=== PATIENT | female | born 1940 | race Caucasian/White ===

== ENCOUNTER 2020-04-01 10:54 | Outpatient (CLI) | payer MEDICARE, SELFPAY ==
--- NOTE | ~2020-04-01 | US_ITS ---
EXAMINATION: US aorta DATE: 04/01/2020 12:09 INDICATION: Aortic dissection, hypertension, hypercholesterolemia and tobacco dependence. TECHNIQUE: Grayscale, color Doppler, and pulsed Doppler images of the aorta and common iliac arteries were obtained. COMPARISON: None. FINDINGS: The proximal aorta measures 2.4 cm in AP diameter. The mid aorta measures 2.1 cm. The mid to distal a mariajose measures 2.2 cm tapering to 1.6 cm at the distal aorta. The right common iliac artery measures 1 .2 cm. The left common iliac artery measures 1.3 cm. IMPRESSION: 1. Normal caliber abdominal aorta. Reviewed, dictated and finalized at location A.
== END 2020-04-01 10:55 | disposition home or self-care (01) ==
PROVIDERS: PCP Family Medicine; Visit Provider Physician Assistant
DX: E78.2 Mixed hyperlipidemia (principal); Z86.79 Personal history of other diseases of the circulatory system; F17.210 Nicotine dependence, cigarettes, uncomplicated; I10 Essential (primary) hypertension
CPT/HCPCS: 76775

== ENCOUNTER 2020-11-26 15:37 | Outpatient (CLI) | payer MEDICARE, SELFPAY ==
[2020-11-26 16:08] LABS: Basophils Percent Auto 0.5 % (0.2-1.2); Eosinophils Absolute Auto 0.1 K/mm3 (0-0.3); Eosinophils Percent Auto 1.5 % (0-4.4); Hematocrit 40.2 % (37.0-47.0); Hemoglobin 12.9 g/dL (12.0-15.0); Immature Granulocyte Absolute 0.11 K/mm3 (0.00-0.031); Immature Granulocyte Percent A 1.5 % (0-0.5); Lymphocytes Percent Auto 21.9 % (18.3-44.2); Mean Corpuscular HGB Conc 32.1 g/dl (32-36); Mean Corpuscular Hemoglobin 30.2 pg (26-34); Mean Corpuscular Volume 94.1 fl (80-100); Mean Platelet Volume 9.7 fl (7.4-10.4); Monocytes Absolute Auto 0.6 K/mm3 (0.1-0.6); Monocytes Percent Auto 8.1 % (2.6-8.5); Neutrophils Absolute Auto 4.9 K/mm3 (1.3-6.7); Neutrophils Percent Auto 66.5 % (45.5-73.1); Platelet Count Result 245 k/mm3 (150-375); Red Blood Count 4.27 M/mm3 (4.2-5.4); Red Cell Distribution Width 12.7 % (11.5-14.5); White Blood Count 7.3 K/mm3 (4.5-10.0)
[2020-11-26 16:24] LABS: Alanine Aminotransferase 14 U/L (4-35); Albumin Level 4.2 g/dL (3.5-5.1); Alkaline Phosphatase 118 U/L (38-126); Anion Gap 4 mmol/L (8-16); Aspartate Amino Transferase 20 U/L (14-36); Bilirubin,Total 0.4 mg/dL (0.2-1.3); Blood Urea Nitrogen 17 mg/dL (7-17); Calcium 8.9 mg/dL (8.4-10.2); Carbon Dioxide 32 mmol/L (22-30); Chloride 103 mmol/L (98-107); Cholesterol 179 mg/dL (0-200); Estimated Glomerular Filt Rate 48; Glucose 111 mg/dL (65-105); HDL Direct 43 mg/dL; Potassium 3.9 mmol/L (3.4-5.0); Sodium 139 mmol/L (137-145); Triglycerides 258 mg/dL (<150); Uric Acid 3.7 mg/dL (2.5-7.5)
[2020-11-26 16:35] LABS: LDL Cholesterol Direct 93 mg/dL
[2020-11-30 11:00] LABS: Vitamin D 1,25 (OH)2 Total 89 pg/mL (18-72); Vitamin D2 1,25 (OH)2 <8 pg/mL; Vitamin D3 1,25 (OH)2 89 pg/mL
== END 2020-11-26 15:38 | disposition home or self-care (01) ==
PROVIDERS: PCP Family Medicine; Visit Provider Physician Assistant
DX: M10.9 Gout, unspecified (principal); E55.9 Vitamin D deficiency, unspecified; F33.1 Major depressive disorder, recurrent, moderate; I10 Essential (primary) hypertension; E78.5 Hyperlipidemia, unspecified
CPT/HCPCS: 36415; 80053; 80061; 82652; 84443; 84550; 85025

== ENCOUNTER 2020-12-04 08:51 | Emergency (ER) | payer MEDICARE, SELFPAY ==
--- NOTE | ~2020-12-04 | XR_ITS ---
EXAMINATION: XR ribs RT 2V w CXR 2V DATE: 12/04/2020 09:16 INDICATION: Mid right rib pain post fall TECHNIQUE: PA and lateral views of the chest and 3 views of the right ribs were obtained. COMPARISON: Chest radiograph dated 02/15/2019 FINDINGS: Small calcified nodule projecting over the right costophrenic angle. Mild streaky atelectasis at the left costophrenic angle. No pulmonary edema, pleural effusion or pneumothorax. Heart size is normal. Tortuous thoracic aorta with suggestion of aneurysm at the arch and proximal descending aorta. Dual l ead pacemaker/AICD seen with leads projecting over the expected locations of the right atrium and rig ht ventricle. No rib fractures identified. Mild S-shaped curvature of the thoracic spine with mild to moderate spondylosis. Chronic mild anterior wedging of a few lower thoracic vertebral bodies. IMPRESSION: 1. No rib fracture or acute cardiopulmonary disease. 2. Tortuous and likely aneurysmal thoracic aorta. Reviewed, dictated and finalized at location B. STICKER
--- NOTE | 2020-12-04 09:01 | ED.FALL ---
HPI - Fall General Chief Complaint: Fall Stated Complaint: right side rib pain after fall Time Seen by Provider: 12/04/20 08:58 History of Present Illness HPI Narrative: Right rib/chest wall pain. Started last night after a fall. She was able to sleep, but when she tried to get up this morning the pain became severe. It is also exacerbated by coughing or breathing deeply. She did not hit her head. No neck or back pain. She believes that this was a mechanical fall due to darkness. Related Data Allergies Allergy/AdvReac Type Severity Reaction Status Date / Time prochlorperazine Allergy Mild shortness Verified 12/04/20 09:12 of breath propoxyphene Allergy Mild Fainting Verified 12/04/20 09:12 Sulfa (Sulfonamide Allergy Mild shortness Verified 12/04/20 09:12 Antibiotics) of breath Review of Systems Review of Systems: All systems reviewed & are unremarkable except as noted in HPI and below Constitutional: Constitutional: Denies fever(s) and Denies weakness Eyes: Eyes: Reports no additional eye complaints ENT: Reports system reviewed and no additional complaints, except as documented Cardiovascular: Cardiovascular: Reports no additional cardiovascular complaints Respiratory: Respiratory: Denies dyspnea Gastrointestinal: Gastrointestinal: Denies abdominal pain and Denies nausea Genitourinary: Genitourinary: Denies dysuria Musculoskeletal: Musculoskeletal: Denies back pain Neurologic: Denies dizziness and Denies weakness PMFSH Past Medical History Medical History (Updated 12/05/20 @ 00:00 by Background Daemon) Gout History of aortic dissection HTN (hypertension) Major depressive disorder, recurrent, moderate Memory deficit Mixed hyperlipidemia Tobacco dependence due to cigarettes Family History Family History Father Hypertension Family history of cardiovascular disease Social History Social History Social History: Divorce Smoking packs per day: 1 Smoking cigarettes per day: 20.0 Smoking status: Current every day smoker Tobacco type: cigarettes Second hand tobacco smoke exposure: Yes Alcohol intake: never Substance use: never Substance use type: does not use Gender identity (if verbalized by the patient): Female Exam Const: General: no acute distress and alert Nutritional Appearance: well nourished Orientation/consciousness: patient oriented x3 HENMT: Head: normal to inspection Eyes: Pupils: pupils not ERRL Neck: Neck: normal visual inspection Chest: Chest palpation & inspection: tenderness rib (lower right) Resp: Effort & Inspection: normal respiratory effort Auscultation: clear to auscultation bilaterally Cardio: Rate: regular rate Rhythm: regular rhythm GI: GI Palp: Yes Soft to palpation and No Tenderness to palpation present (GI) Skin: General skin exam: normal color Neuro: General: patient oriented x3, moves all extremities, no focal motor deficits and CN's II-XI intact bilaterally Speech: normal speech Extrem: General: normal to inspection Course Vital Signs Vital signs: Vital Signs Temperature 36.9 C 12/04/20 09:03 Pulse Rate 88 12/04/20 09:03 Respiratory Rate 18 12/04/20 09:03 Blood Pressure 154/120 H 12/04/20 09:03 Pulse Oximetry 100 12/04/20 09:03 Temperature 36.9 C 12/04/20 09:03 Pulse Rate 86 12/04/20 11:09 Respiratory Rate 18 12/04/20 11:09 Blood Pressure 150/90 H 12/04/20 11:09 Pulse Oximetry 100 12/04/20 11:09 MDM - Fall MDM Narrative Medical decision making narrative: No fracture. She is still having some pain, but moving well and not requesting any pain medication at this time. Differential Diagnosis Differential diagnosis: Likely other (rib fracture, chest wall strain) Medical Records Attestation: I reviewed the patient's medical records. Imaging Data Radiologis
[2020-12-04 09:03] VITALS: BP 154/120; PULSE 88; RESP 18; TEMP 36.9; O2SAT 100
[2020-12-04 11:07] VITALS: BP 150/90; PULSE 86; RESP 18; O2SAT 100
[2020-12-04 11:09] VITALS: BP 150/90; PULSE 86; RESP 18; O2SAT 100
== END 2020-12-04 12:10 | disposition home or self-care (01) ==
PROVIDERS: Emergency Provider Emergency Medicine; PCP Family Medicine
DX: S29.011A Strain of muscle and tendon of front wall of thorax, initial encounter (principal); M10.9 Gout, unspecified; I10 Essential (primary) hypertension; E78.2 Mixed hyperlipidemia; F17.210 Nicotine dependence, cigarettes, uncomplicated; Z95.810 Presence of automatic (implantable) cardiac defibrillator; W19.XXXA Unspecified fall, initial encounter
CPT/HCPCS: 71046; 71100; 99283

== ENCOUNTER 2021-10-06 17:35 | Emergency (ER) | payer MEDICARE, SELFPAY ==
--- NOTE | ~2021-10-06 | CT_ITS ---
EXAMINATION: CT brain wo con EXAM DATE: 10/06/2021 18:48 INDICATION: Head injury, headaches. TECHNIQUE: Spiral CT of the head was performed without contrast. Axial, coronal and sagittal images were reviewed. The dose-length product (DLP) for this examination was 605.33 mGy-cm. The exposure w as tailored according to patient size, and iterative reconstruction (ASIR) was used as additional dos e reduction technique. Comparison is made to prior examination from 02/05/2019. FINDINGS: There is dolichoectasia of the basilar artery and the left internal carotid artery distally . The left distal ICA has fusiform dilation up to 10 mm (was about and 2018). No focal aneurysm is specifically identified but this is a noncontrast study and a follow-up CTA brain should be considere d on nonemergent basis. There is old left thalamic lacunar infarction. There is no acute intraparenchymal hemorrhage. No oh dence of intraparenchymal brain mass lesion. No evidence of acute infarction. Please note that init ial head CT has limited sensitivity for small or acute infarctions. There is moderate periventricular and subcortical hypodensity, nonspecific but probably related to small vessel ischemic disease. Th ere is moderate prominence of the sulci and ventricles related to cerebral atrophy. There is intrac ranial carotid arteriosclerosis. There are no extra-axial collections. There is no mass effect or m idline shift. The orbits are unremarkable. Soft tissue is unremarkable. The visualized sinuses and mastoid air cells are well aerated. IMPRESSION: 1. No acute intracranial findings. 2. Fusiform dilation of the basilar and left distal ICA without focal aneurysm identified; follow-up nonemergent CTA brain should be considered. 3. 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 4. Microangiopathy and cerebral atrophy. Reviewed, dictated and finalized at location A. F LIBRARIAN BRANCH
[2021-10-06 17:50] VITALS: BP 187/130; PULSE 93; RESP 16; TEMP 37.1; O2SAT 98
[2021-10-06 18:17] VITALS: BP 184/118; PULSE 86; RESP 18; O2SAT 100
--- NOTE | 2021-10-06 18:25 | ECG_ITS ---
Measurements Intervals [place] Rate: 84 P: 207 AK: 186 QRS: -19 QRSD: 89 T: 25 QT: 414 QTc: 490 Interpretive Statements ELECTRONIC ATRIAL PACEMAKER SUPRAVENTRICULAR BIGEMINY CONSIDER INFERIOR INFARCT, AGE INDETERMINATE BORDERLINE ST-T WAVE ABNORMALITY- ANT/HIGH LAT LEADS BASELINE ARTIFACT- I, II, AVR, AVL, AVF, V1-V6 ABNORMAL ECG Electronically Signed On 10-06-2021 20:12:35 PRODUCTION COORDINATOR by Marko Orozco D.O.
--- NOTE | 2021-10-06 18:30 | ED.FALL ---
HPI - Fall General Chief Complaint: Fall Stated Complaint: FALL 2WKS AGO, PERSISTENT HEADACHE Time Seen by Provider: 10/06/21 18:17 Source: patient Mode of arrival: ambulatory Limitations: no limitations History of Present Illness HPI Narrative: This is an 81 year old female who presents for evaluation of intermittent headaches. Patient states 2 weeks ago she fell in the bathroom. She is unsure of why she fell. She states she did not seek treatment at this time. She has been having intermittent posterior headaches since her fall. She has been taking ibuprofen for her headache and it resolves her pain. She states her headache is currently resolved. She denies associated nausea, vomiting, fever, dizziness, or focal weakness. She has been found to be hypertensive and she reports history of high blood pressure. She is unsure if she takes medication for hypertension. Related Data Allergies Allergy/AdvReac Type Severity Reaction Status Date / Time prochlorperazine Allergy Mild shortness Verified 10/06/21 18:24 of breath propoxyphene Allergy Mild Fainting Verified 10/06/21 18:24 Sulfa (Sulfonamide Allergy Mild shortness Verified 10/06/21 18:24 Antibiotics) of breath Review of Systems Review of Systems: All systems reviewed & are unremarkable except as noted in HPI and below PMFSH Past Medical History Medical History Cognitive changes Gout History of aortic dissection HTN (hypertension) Major depressive disorder, recurrent, moderate Memory deficit Mixed hyperlipidemia Tobacco dependence due to cigarettes Family History Family History Father Hypertension Family history of cardiovascular disease Social History Social History (Updated 08/05/21 @ 10:38 by Liz Villela) Social History: Divorce Smoking packs per day: 1 Smoking cigarettes per day: 20.0 Smoking status: Current every day smoker Tobacco type: cigarettes Second hand tobacco smoke exposure: Yes Alcohol intake: never Substance use: never Substance use type: does not use Gender identity (if verbalized by the patient): Female Sexual Orientation (if Verbalized by the Patient): Straight or Heterosexual Exam Const: General: no acute distress and alert Nutritional Appearance: obese Orientation/consciousness: patient oriented x3 HENMT: Head: normocephalic and atraumatic Face and sinus: normal facial exam, sinuses nontender and face symmetric Mouth: Yes Normal oral and palatal mucosa present, Yes lip normal, Yes oropharynx normal and Yes moist mucous membranes Eyes: Pupils: Equal, round and reactive pupils present EOM: EOMs intact bilaterally Neck: Neck: normal visual inspection Chest: Chest palpation & inspection: normal inspection of the chest Resp: Effort & Inspection: normal respiratory effort and no retractions Auscultation: clear to auscultation bilaterally Cardio: Rate: regular rate Rhythm: regular rhythm Heart sounds: no murmurs GI: GI Palp: Yes Soft to palpation, No Tenderness to palpation present (GI) and No Guarding due to palpation present (GI) Auscultation: normal bowel sounds Skin: General skin exam: normal color Rashes: no rashes Neuro: General: patient oriented x3, moves all extremities, no meningeal signs, no focal motor deficits and CN's II-XI intact bilaterally Cranial nerves: Yes Nystagmus not present Speech: normal speech Extrem: General: normal to inspection Psych: Mental Status: mental status grossly normal Affect: normal affect Course Consultations Consultation #1: I Spoke with patient's PCPabout patient visit. She recommends clonidine 0.1 mg bid for hypertension and she will follow up with patient. PAtient does not have headache here and she has known aneurysm. She has not focal deficits. Date: 10/06/21 Time: 20:38 Vital Signs Vital signs: Vital Signs Tem
[2021-10-06 18:44] LABS: Basophils Percent Auto 0.6 % (0.2-1.2); Eosinophils Absolute Auto 0.1 K/mm3 (0-0.3); Eosinophils Percent Auto 1.7 % (0-4.4); Immature Granulocyte Absolute 0.08 K/mm3 (0.00-0.031); Immature Granulocyte Percent A 1.1 % (0-0.5); Lymphocytes Percent Auto 35.6 % (18.3-44.2); Mean Corpuscular HGB Conc 33.3 g/dl (32-36); Mean Corpuscular Hemoglobin 30.8 pg (26-34); Mean Corpuscular Volume 92.4 fl (80-100); Mean Platelet Volume 9.1 fl (7.4-10.4); Monocytes Absolute Auto 0.7 K/mm3 (0.1-0.6); Monocytes Percent Auto 10.4 % (2.6-8.5); Neutrophils Absolute Auto 3.6 K/mm3 (1.3-6.7); Neutrophils Percent Auto 50.6 % (45.5-73.1); Platelet Count Result 202 k/mm3 (150-375); Red Blood Count 4.22 M/mm3 (4.2-5.4); Red Cell Distribution Width 13.6 % (11.5-14.5)
[2021-10-06 18:50] VITALS: PULSE 80
[2021-10-06] MEDS: carvediloL 25 MG TABLET PO (18:50)
[2021-10-06 18:52] VITALS: BP 164/115; PULSE 83; RESP 18; O2SAT 99
[2021-10-06 18:53] LABS: INR 0.9; Prothrombin Time 11.8 Seconds (11.1-14.7)
[2021-10-06 18:54] LABS: Partial Thromboplastin Time 25.1 SECONDS (22.3-36.8)
[2021-10-06 19:01] LABS: Alanine Aminotransferase 18 U/L (4-35); Albumin Level 4.4 g/dL (3.5-5.1); Alkaline Phosphatase 102 U/L (38-126); Anion Gap 9 mmol/L (8-16); Aspartate Amino Transferase 25 U/L (14-36); Bilirubin,Total 0.4 mg/dL (0.2-1.3); Blood Urea Nitrogen 17 mg/dL (7-17); Calcium 9.1 mg/dL (8.4-10.2); Carbon Dioxide 24 mmol/L (22-30); Chloride 105 mmol/L (98-107); Estimated CRCL calculation 39 ml/min; Estimated Glomerular Filt Rate 53; Glucose 112 mg/dL (65-110); Potassium 3.6 mmol/L (3.4-5.0); Sodium 138 mmol/L (137-145)
[2021-10-06 19:20] VITALS: BP 158/96; PULSE 88; RESP 18; O2SAT 99
[2021-10-06 21:20] VITALS: BP 126/83; PULSE 77; RESP 20; O2SAT 100
--- NOTE | 2021-10-06 21:21 | PC.NURSE ---
Pt listed contact (Abhi) called and on their way to pick pt up at this time.
== END 2021-10-06 21:26 | disposition home or self-care (01) ==
PROVIDERS: Emergency Provider General Practice; PCP Family Medicine
DX: I10 Essential (primary) hypertension (principal); Z95.810 Presence of automatic (implantable) cardiac defibrillator; M10.9 Gout, unspecified; E78.2 Mixed hyperlipidemia; F17.210 Nicotine dependence, cigarettes, uncomplicated; G31.9 Degenerative disease of nervous system, unspecified; I73.9 Peripheral vascular disease, unspecified; R93.0 Abnormal findings on diagnostic imaging of skull and head, not elsewhere classified
CPT/HCPCS: 36415; 70450; 80053; 85025; 85610; 85730; 93005; 99284; A9270

== ENCOUNTER 2021-10-29 08:11 | Outpatient (CLI) | payer MEDICARE, SELFPAY ==
--- NOTE | ~2021-10-29 | XR_ITS ---
XR foot RT min 3V 10/29/2021 08:31 Indication: Right foot pain Procedure: 4 views right foot Comparison: No prior studies for comparison. Findings: There is a nondisplaced fracture proximal aspect of the fifth proximal phalanx with intra-a rticular extension. No other fracture or traumatic malalignment. Impression: 1: Nondisplaced fracture proximal aspect of the right fifth proximal phalanx with intra-articular ext ension. Reviewed, dictated and finalized at location B. ENGINE PERFORMANCE ENGINEER Impression: 1: Nondisplaced fracture proximal aspect of the right fifth proximal phalanx wi th intra-articular extension.
== END 2021-10-29 08:12 | disposition home or self-care (01) ==
PROVIDERS: PCP Family Medicine; Visit Provider Family Medicine
DX: S92.811A Other fracture of right foot, initial encounter for closed fracture (principal)
CPT/HCPCS: 73630

== ENCOUNTER 2022-05-20 16:49 | Inpatient (IN) | payer MEDICARE, MEDICAID, SELFPAY ==
[2022-05-20] VITALS (14 sets, daily range): BP systolic 76–133; BP diastolic 46–80; PULSE 72–100; RESP 14–20; TEMP 36.1–36.8; O2SAT 96–100; BMI 32.5
--- NOTE | ~2022-05-20 | CT_ITS ---
EXAMINATION: CT brain wo con DATE: 05/20/2022 17:41 INDICATION: Syncope. TECHNIQUE: Computed tomography (CT) of the head was performed without intravenous contrast. The mA wa s adjusted according to patient size. Iterative reconstruction technique was employed. The dose-lengt h product was 605.33 mGy-cm. COMPARISON: Head CT 10/06/2021 FINDINGS: There are old infarcts involving the thalami and left basal ganglia. There are scattered ar eas of low attenuation in the cerebral white matter. There is no intracranial hemorrhage, acute infar ction, or abnormal intracranial mass lesion. The ventricles are normal in size. There is a 12 mm aneu rysm of distal left internal carotid artery. 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 The re are changes of left-sided craniotomy. The mastoid air cells are normal. There is mild mucosal thic kening in the ethmoid sinuses. The orbits are normal. IMPRESSION: 1. Old infarcts involving the thalami and left basal ganglia. 2. Mild nonspecific cerebral white matter disease, which likely represents chronic small vessel ische toni disease. 3. Aneurysms involving the basilar artery and distal left internal carotid artery. Head CTA is recomm ended. Reviewed, dictated and finalized at location A. IMPRESSION: 1. Old infarcts involving the thalami and left basal ganglia. 2. Mild nonspecific cerebral white matter disease, which likely represents hotel or motel receptionist armando small vessel ischemic disease. 3. Aneurysms involving the basilar artery and distal left internal carotid ranjith ry. Head CTA is recommended.
--- NOTE | ~2022-05-20 | XR_ITS ---
EXAMINATION: XR chest 2V DATE: 05/20/2022 17:35 INDICATION: Lightheadedness. TECHNIQUE: Frontal and lateral views of the chest were obtained. COMPARISON: Chest 2 views 12/04/2020 FINDINGS: There is mild atelectasis in the lower lung zones. No pleural effusion or pneumothorax. Car diomegaly is noted. There is a left chest pacer/defibrillator with leads in right atrium and right ve ntricle. IMPRESSION: 1. Mild atelectasis in the lower lung zones. 2. Cardiomegaly. Reviewed, dictated and finalized at location A.
--- NOTE | 2022-05-20 16:56 | ECG_ITS ---
Measurements Intervals [place] Rate: 75 P: 181 AK: 217 QRS: -11 QRSD: 100 T: 66 QT: 378 QTc: 424 Interpretive Statements PROBABLE ELECTRONIC ATRIAL PACEMAKER NONSPECIFIC ST & T-WAVE ABNORMALITY ABNORMAL RHYTHM ECG COMPARED TO ECG 10/06/2021 18:56:39 NO SIGNIFICANT CHANGE Electronically Signed On 05-21-2022 19:47:38 CDT by Mariah Shaw M.D.
--- NOTE | 2022-05-20 17:11 | ED.GENADULT ---
HPI - General Adult General Chief complaint: Weakness <PUSHPA Shelton Last Filed: 05/21/22 02:12> Stated complaint: dizziness <PUSHPA Shelton Last Filed: 05/21/22 02:12> Time Seen by Provider: 05/20/22 16:59 <Kandy Morrell PA-C - Last Filed: 05/21/22 02:12> History of Present Illness HPI narrative: Patient is an 82-year-old female with a history of hypertension, hyperlipidemia, CVA with residual cognitive deficits, sinus pause s/p pacemaker placement, type B aortic dissection medically treated at [facility], COPD, current smoker, here for evaluation of lightheadedness today. Patient states that she has felt lightheaded all day, and whenever she goes from seated to standing, she passes out. Had 3 episodes total today. She denies any head injury or loss of consciousness but is somewhat of an unreliable historian. She has been able to get herself off the floor after falling and denies significant arthralgia after the falls. Notes that she hasn't been eating much or drinking much over past several days. Denies fevers, chills, abdominal pain, chest pain, shortness of breath, blood in her stool, headaches or visual changes. Patient did not take her medications today including her blood pressure medicines. <PUSHPA Shelton Last Filed: 05/21/22 02:12> Related Data Home medications: Home Medications Medication Instructions Recorded Confirmed allopurinol 100 mg tablet 100 mg PO DAILY 05/20/22 05/20/22 paroxetine HCl 20 mg tablet 20 mg PO DAILY 05/20/22 05/20/22 topiramate 50 mg tablet 50 mg PO BID 05/20/22 05/20/22 <PUSHPA Shelton Last Filed: 05/21/22 02:12> Allergies/adverse reactions: Allergies Allergy/AdvReac Type Severity Reaction Status Date / Time prochlorperazine Allergy Mild shortness Verified 05/20/22 20:54 of breath propoxyphene Allergy Mild Fainting Verified 05/20/22 20:54 Sulfa (Sulfonamide Allergy Mild shortness Verified 05/20/22 20:54 Antibiotics) of breath <Kandy Morrell PA-C - Last Filed: 05/21/22 02:12> Review of Systems Review of Systems: Gen: Reports lightheadedness and syncope. Denies fevers or chills Eyes: Denies eye pain or visual change ENT: Denies congestion Respiratory: Denies shortness of breath or cough CV: Denies chest pain or palpitations GI: Reports abdominal pain nausea, emesis or diarrhea denies burning, urgency, frequency or hematuria Musculoskeletal: Denies back pain or muscle pain Neuro: Denies numbness, tingling, weakness or focal weakness Skin: Denies rash 10 point review of systems negative, other than as per history of present illness, past medical history and other positives and review of systems <Kandy Morrell PA-C - Last Filed: 05/21/22 02:12> [facility] Past Medical History Medical History: Medical History (Updated 05/20/22 @ 20:45 by Jo Ann Briggs DO) Acute kidney injury superimposed on chronic kidney disease B12 deficiency Cardiac pacemaker Cerebral aneurysm Is with leakage in 1994 that was repaired with 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
[2022-05-20 17:18] LABS: Basophils Percent Auto 0.5 % (0.2-1.2); Eosinophils Absolute Auto 0.1 K/mm3 (0-0.3); Eosinophils Percent Auto 0.7 % (0-4.4); Hematocrit 38.2 % (37.0-47.0); Hemoglobin 12.4 g/dL (12.0-15.0); Immature Granulocyte Absolute 0.09 K/mm3 (0.00-0.031); Lymphocytes Absolute Auto 2.18 K/mm3 (0.9-3.2); Lymphocytes Percent Auto 24.9 % (18.3-44.2); Mean Corpuscular HGB Conc 32.5 g/dl (32-36); Mean Corpuscular Hemoglobin 29.9 pg (26-34); Mean Platelet Volume 9.5 fl (7.4-10.4); Monocytes Absolute Auto 0.8 K/mm3 (0.1-0.6); Neutrophils Absolute Auto 5.6 K/mm3 (1.3-6.7); Neutrophils Percent Auto 63.9 % (45.5-73.1); Platelet Count Result 226 k/mm3 (150-375); Red Blood Count 4.15 M/mm3 (4.2-5.4); Red Cell Distribution Width 13.2 % (11.5-14.5); White Blood Count 8.8 K/mm3 (4.5-10.0)
[2022-05-20 17:28] LABS: Alanine Aminotransferase 12 U/L (6-35); Albumin Level 4.2 g/dL (3.5-5.1); Alkaline Phosphatase 78 U/L (38-126); Anion Gap 12 mmol/L (8-16); Aspartate Amino Transferase 19 U/L (14-36); Bilirubin,Total 0.5 mg/dL (0.2-1.3); Blood Urea Nitrogen 37 mg/dL (7-17); Calcium 9.1 mg/dL (8.4-10.2); Carbon Dioxide 26 mmol/L (22-30); Chloride 98 mmol/L (98-107); Estimated CRCL calculation 15 ml/min; Estimated Glomerular Filt Rate 17; Glucose 106 mg/dL (65-110); Potassium 3.5 mmol/L (3.4-5.0); Sodium 136 mmol/L (137-145)
[2022-05-20 17:30] LABS: Appearance Urine Slightly Cloudy (Clear); Bilirubin Urine 1+ (Negative); Blood Urine Negative (Negative); Glucose Urine UA Negative (Negative); Ketones Urine 1+ mg/dL (Negative); Leukocyte Esterase Ur 1+ LEU/UL (Negative); Nitrate Urine Negative (Negative); Protein Urine 1+ mg/dL (Negative); Specific Grav Ur 1.025 (1.001-1.035)
[2022-05-20 17:33] LABS: Add Urine Microscopic? YES; Color Urine Dark Yellow (Yellow)
[2022-05-20] MEDS: SODIUM CHLORIDE 0.9% IV 1,000 ML 999 ML IV CONT ×2 (17:35→22:07)
[2022-05-20 17:36] LABS: Amorphous Sediment Urine Few; Bacteria Urine Trace /hpf; RBC Urine 21-50 /hpf (0-2); Squamous Epithelial Cell Urine Few /hpf (Few); WBC Urine >75 /hpf
[2022-05-20 17:59] LABS: Lactic Acid Reflex 1.6 mmol/L (0.7-2.0)
--- NOTE | 2022-05-20 19:20 | PC.NURSE ---
Report received from VAZQUEZ Mirza. Assumed care of patient at this time.
--- NOTE | 2022-05-20 20:29 | PM.IMHP ---
H&P: HPI History of Present Illness Date/Time: 05/20/22 20:29 Chief Complaint: Lightheaded Narrative: 82-year-old female with a past medical history of CVA, intracranial aneurysm, cardiac pacemaker, COPD, hypertension, chronic kidney disease stage 3 and gout who presented to the ER via private vehicle with lightheadedness. The patient reported she had fallen multiple times today. When she arrived his triage patient blood pressure was in the 76/46. Patient received 1 L of IV fluid hydration with repeat blood pressures in the 90s to 100's systolic. Patient was also noted to have acute on chronic kidney injury. The patient had reported to the ER doctor multiple times that she was lightheaded. At the time my evaluation the patient denied actually feeling lightheaded. She reports that simply her legs were not working like they should. She had 3 episodes of falling today. She denies any head injury or loss of consciousness but is a poor historian. She was able to get herself up off the floor after falling. She reports that she has had decreased mobility since falling off of a bed at her friend's house earlier in the month. She denies any assistive devices with ambulation. She has not been eating or drinking much over last several days. She denies any change in appetite, nausea, vomiting, abdominal pain, chest pain or shortness of breath. She does still smoke half a pack to 1 pack of cigarettes per day. She did not take any of her medications today. It is difficult to tell which medications she has been taking. She had a paper with her that stated that her Coreg had been discontinued. However the patient remains on clonidine 3 times a day hydrochlorothiazide and losartan. The patient is alert and oriented to the fact that she is in the hospital and knows that the month of May. She thought the year was 2020. The patient had difficulty naming the president. When I provided her with his 1st name she was eventually able to give me his last name. She states that she lives alone. She reports that she came in to the ER because her son tried to come visit her today and she fell when she tried to answer the door. He convinced her to come to the ER. She reports significantly decreased vision due to cataracts. She is scared to have cataract surgery. Review of Systems Review of Systems: 12 systems were reviewed with pertinent positives and negatives per HPI. Except as documented in the HPI, all other systems were reviewed and are negative. 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 syndrome) Thoracic aortic aneurysm (TAA) Tobacco dependence due to cigarettes Vascular dementia without behavioral disturbance Vitamin D deficiency Surgical History Surgical History (Updated 05/20/22 @ 20:44 by Jo Ann Briggs DO) History of brain surgery (~1994) Aneurysm repair History of total hysterectomy with bilateral salpingo-oophorectomy (BSO) Family History Family History Father Hypertension Family history of cardiovascular disease Mother Heart disease Sibling Drug abuse Alcohol abuse Son Schizophrenia Social History Social History (Upd
--- NOTE | 2022-05-20 20:35 | ADMGEN ---
This patient, Daylin Chery, was admitted to Medical Room 340-01. Patient/family oriented to hospital policies and general routines including ID bracelet, bed and alarms, visiting hours, pain management, procedures, bathroom and other care routines, personal items, smoking policy, room service/diet, and visiting hours. Information on how to activate the Rapid Response Team has been discussed. Patient/Family are encouraged to report perceived risks to care and to ask questions if they do not understand what they are told or what they should do.
[2022-05-20] MEDS: SODIUM CHLORIDE 0.9% IV 1,000 ML 100 ML IV CONT (22:07)
[2022-05-21] VITALS (10 sets, daily range): BP systolic 123–150; BP diastolic 65–89; PULSE 65–84; RESP 18; TEMP 36.4–36.8; O2SAT 95–98
[2022-05-21] MEDS: lamoTRIgine 100 MG TABLET 50 MG PO (00:27)
[2022-05-21] MEDS: TOPIRAMATE 25 MG TABLET 50 MG PO ×3 (00:28→16:36)
[2022-05-21] MEDS: MEMANTINE 10 MG TABLET PO ×3 (00:28→16:35)
[2022-05-21] MEDS: QUEtiapine FUMARATE 25 MG TABLET PO ×2 (00:28→19:56)
[2022-05-21] MEDS: SODIUM CHLORIDE 0.9% IV 1,000 ML 100 ML IV CONT ×2 (07:01→17:21)
[2022-05-21] MEDS: UMECLIDINIUM/VILANTEROL 62.5-25 MCG ELLIPTA 1 PUFF INHALATION (08:08)
[2022-05-21] MEDS: ENOXAPARIN 30 MG/0.3 ML SYRINGE SUB-Q (08:16)
[2022-05-21] MEDS: allopurinoL 100 MG TABLET PO (08:17)
[2022-05-21] MEDS: ATORVASTATIN 10 MG TABLET PO (08:17)
[2022-05-21] MEDS: PARoxetine 20 MG TABLET PO (08:18)
[2022-05-21 10:35] LABS: Hematocrit 31.6 % (37.0-47.0); Hemoglobin 10.2 g/dL (12.0-15.0); Mean Corpuscular HGB Conc 32.3 g/dl (32-36); Mean Corpuscular Hemoglobin 30.1 pg (26-34); Mean Corpuscular Volume 93.2 fl (80-100); Mean Platelet Volume 9.5 fl (7.4-10.4); Platelet Count Result 182 k/mm3 (150-375); Red Blood Count 3.39 M/mm3 (4.2-5.4); Red Cell Distribution Width 13.2 % (11.5-14.5); White Blood Count 6.4 K/mm3 (4.5-10.0)
[2022-05-21 10:58] LABS: Albumin Level 3.4 g/dL (3.5-5.1); Anion Gap 10 mmol/L (8-16); Blood Urea Nitrogen 26 mg/dL (7-17); Carbon Dioxide 24 mmol/L (22-30); Chloride 106 mmol/L (98-107); Estimated CRCL calculation 27 ml/min; Estimated Glomerular Filt Rate 33; Glucose 127 mg/dL (65-110); Phosphorus 3.4 mg/dL (2.5-4.5); Sodium 140 mmol/L (137-145)
--- NOTE | 2022-05-21 12:38 | PM.IMPN ---
Progress Note: A&P Assessment and Plan (1) Acute renal failure superimposed on stage 3 chronic kidney disease: Code(s): N17.9 - Acute kidney failure, unspecified; N18.30 - Chronic kidney disease, stage 3 unspecified Status: Acute Assessment and Plan: Most likely due to hypovolemia and hypotension. Patient's blood pressure improved with 1 L normal saline bolus in the ER. An additional 500 mL bolus was given on arrival to the medical floor. Will continue the patient on maintenance IV fluids after that time. Will repeat BMP in a.m.. Antihypertensives on hold including hydrochlorothiazide and losartan. I suspect the patient is not taking her medications appropriately due to her dementia. She would benefit from simple of vacation of her medication regimen. Id eliminating clonidine for antihypertensive purposes. 05/21/2022 interval history: patient is poor historian, may have dementia, patient with syncopal episodes 2/2 dehydration due to poor PO intake resulting in EKATERINA upon arrival BUN/creatinine was 37/2.7 which has improved with IVF and now BUN/Creatinine is 26/1.5 will continue to hydrate patient and encourage PO intake, will have PT/OT worked with patient and patient will benefit going to SNF for rehab, will CPM, will monitor. (2) Hypotension due to hypovolemia: Code(s): I95.89 - Other hypotension; E86.1 - Hypovolemia Status: Acute Assessment and Plan: Improved after 1 L normal saline bolus provided in ER. Will give an additional 500 mL bolus at the patient actually has has evidence of orthostatic hypotension on re-evaluation. Will hold the patient's multiple antihypertensives. Plan Patient has been admitted as observation status. Subjective Date/time seen: 05/21/22 12:38 [id number]old female with a past medical history of CVA, intracranial aneurysm, cardiac pacemaker, COPD, hypertension, chronic kidney disease stage 3 and gout who presented to the ER via private vehicle with lightheadedness.? The patient reported she had fallen multiple times today.? When she arrived his triage patient blood pressure was in the 76/46.? Patient received 1 L of IV fluid hydration with repeat blood pressures in the 90s to 100's systolic.? Patient was also noted to have acute on chronic kidney injury.? The patient had reported to the ER doctor multiple times that she was lightheaded.? At the time my evaluation the patient denied actually feeling lightheaded.? She reports that simply her legs were not working like they should.? She had 3 episodes of falling today.? She denies any head injury or loss of consciousness but is a poor historian.? She was able to get herself up off the floor after falling.? She reports that she has had decreased mobility since falling off of a bed at her friend's house earlier in the month.? She denies any assistive devices with ambulation.? She has not been eating or drinking much over last several days.? She denies any change in appetite, nausea, vomiting, abdominal pain, chest pain or shortness of breath.? She does still smoke half a pack to 1 pack of cigarettes per day.? She did not take any of her medications today.? It is difficult to tell which medications she has been taking.? She had a paper with her that stated that her Coreg had been discontinued.? However the patient remains on clonidine 3 times a day hydrochlorothiazide and losartan.? The patient is alert and oriented to the fact that she is in the hospital and knows that the month of May.? She thought the year was 2020.? The patient had difficulty naming the president.? When I provided her with his 1st name she was eventually able to give me his last name.? She states that she lives alone.? She reports that she came in to the ER because her son tried to come visit her today and she fell when she tried to answer the door.? He convinced her to come to the ER.? She reports significantly decreased vision due to cataracts.? She is scared
--- NOTE | 2022-05-21 14:42 | PC.NURSE ---
Wrap Checker called pharmacy and spoke with Dana to clarify label on lamotrigine that reads give with 50 mg for total dose of 150 mg . At 0800 there was only one active order with instructions to give 0.5 tablet for total a dose 50 mg. She clarified that the total dose is to be 150mg and the order was entered incorrectly. The order has been corrected and will administered at 1700.
[2022-05-21] MEDS: lamoTRIgine 100 MG TABLET PO (16:35)
[2022-05-21] MEDS: lamoTRIgine 50 MG TABLET PO (16:35)
[2022-05-22] VITALS (10 sets, daily range): BP systolic 143–158; BP diastolic 86–93; PULSE 71–89; RESP 14–18; TEMP 36.6–37.2; O2SAT 94–97
[2022-05-22] MEDS: SODIUM CHLORIDE 0.9% IV 1,000 ML 100 ML IV CONT (03:33)
[2022-05-22] MEDS: UMECLIDINIUM/VILANTEROL 62.5-25 MCG ELLIPTA 1 PUFF INHALATION (07:36)
[2022-05-22] MEDS: ATORVASTATIN 10 MG TABLET PO (08:35)
[2022-05-22] MEDS: allopurinoL 100 MG TABLET PO (08:35)
[2022-05-22] MEDS: TOPIRAMATE 25 MG TABLET 50 MG PO ×2 (08:36→17:01)
[2022-05-22] MEDS: lamoTRIgine 50 MG TABLET PO ×2 (08:36→17:01)
[2022-05-22] MEDS: PARoxetine 20 MG TABLET PO (08:36)
[2022-05-22] MEDS: lamoTRIgine 100 MG TABLET PO ×2 (08:36→17:01)
[2022-05-22] MEDS: ENOXAPARIN 30 MG/0.3 ML SYRINGE SUB-Q (08:37)
[2022-05-22] MEDS: MEMANTINE 10 MG TABLET PO ×2 (08:37→17:01)
[2022-05-22 08:52] LABS: Hematocrit 33.3 % (37.0-47.0); Mean Corpuscular Hemoglobin 30.3 pg (26-34); Mean Corpuscular Volume 91.7 fl (80-100); Mean Platelet Volume 9.3 fl (7.4-10.4); Platelet Count Result 166 k/mm3 (150-375); Red Blood Count 3.63 M/mm3 (4.2-5.4); Red Cell Distribution Width 13.2 % (11.5-14.5); White Blood Count 7.8 K/mm3 (4.5-10.0)
[2022-05-22 09:02] LABS: Anion Gap 10 mmol/L (8-16); Blood Urea Nitrogen 16 mg/dL (7-17); Calcium 8.3 mg/dL (8.4-10.2); Carbon Dioxide 26 mmol/L (22-30); Chloride 104 mmol/L (98-107); Estimated CRCL calculation 36 ml/min; Estimated Glomerular Filt Rate 48; Glucose 102 mg/dL (65-110); Potassium 3.2 mmol/L (3.4-5.0); Sodium 140 mmol/L (137-145)
[2022-05-22] MEDS: POTASSIUM CHLORIDE 20 MEQ TABLET 40 MEQ PO (10:59)
--- NOTE | 2022-05-22 13:19 | PM.IMPN ---
Progress Note: A&P Assessment and Plan (1) Acute renal failure superimposed on stage 3 chronic kidney disease: Code(s): N17.9 - Acute kidney failure, unspecified; N18.30 - Chronic kidney disease, stage 3 unspecified Status: Acute Assessment and Plan: Most likely due to hypovolemia and hypotension. Patient's blood pressure improved with 1 L normal saline bolus in the ER. An additional 500 mL bolus was given on arrival to the medical floor. Will continue the patient on maintenance IV fluids after that time. Will repeat BMP in a.m.. Antihypertensives on hold including hydrochlorothiazide and losartan. I suspect the patient is not taking her medications appropriately due to her dementia. She would benefit from simple of vacation of her medication regimen. Id eliminating clonidine for antihypertensive purposes. 05/21/2022 interval history: patient is poor historian, may have dementia, patient with syncopal episodes 2/2 dehydration due to poor PO intake resulting in EKATERINA upon arrival BUN/creatinine was 37/2.7 which has improved with IVF and now BUN/Creatinine is 26/1.5 will continue to hydrate patient and encourage PO intake, will have PT/OT worked with patient and patient will benefit going to SNF for rehab, will CPM, will monitor. 05/22/2022 interval history: patient is poor historian, may have dementia, patient with syncopal episodes 2/2 dehydration due to poor PO intake resulting in EKATERINA upon arrival BUN/creatinine was 37/2.7 which has improved with IVF and now BUN/Creatinine today is 16/1.1 will stop IVF as patient stats she is going bathroom too many and her symptoms have improved and not as dizzy, will encourage PO intake, will have PT/OT worked with patient and patient will benefit going to SNF for rehab, will CPM, will monitor. (2) Hypotension due to hypovolemia: Code(s): I95.89 - Other hypotension; E86.1 - Hypovolemia Status: Acute Assessment and Plan: Improved after 1 L normal saline bolus provided in ER. Will give an additional 500 mL bolus at the patient actually has has evidence of orthostatic hypotension on re-evaluation. Will hold the patient's multiple antihypertensives. Plan Patient has been admitted as observation status. Subjective Date/time seen: 05/22/22 13:19 05/22/2022 interval history: patient is poor historian, may have dementia, patient with syncopal episodes 2/2 dehydration due to poor PO intake resulting in EKATERINA upon arrival BUN/creatinine was 37/2.7 which has improved with IVF and now BUN/Creatinine today is 16/1.1 will stop IVF as patient stats she is going bathroom too many and her symptoms have improved and not as dizzy, will encourage PO intake, will have PT/OT worked with patient and patient will benefit going to SNF for rehab, will CPM, will monitor. Exam Narrative: elderly frail Patient is comfortable, NAD HEENT: eyes are clear and none icteric LUNGS: normal respiratory effort ABD: distended Lower extremities: no edema SKIN: nonjaundiced Neuro: grossly intact. Objective Data Vital Signs Vital Signs: Vital Signs - 24 hr 05/21/22 13:45 05/21/22 16:00 05/21/22 20:00 Temperature 98.2 F Pulse Rate 72 75 84 Respiratory Rate 18 Blood Pressure 123/80 Pulse Oximetry 98 Oxygen Delivery 05/21/22 21:36 05/22/22 00:00 05/22/22 04:00 Temperature 97.6 F Pulse Rate 73 71 73 Respiratory Rate 18 Blood Pressure 150/89 H Pulse Oximetry 96 Oxygen Delivery 05/22/22 05:25 05/22/22 07:37 05/22/22 08:36 Temperature 97.9 F Pulse Rate 76 72 Respiratory Rate 18 Blood Pressure 158/86 H Pulse Oximetry 97 94 Oxygen Delivery Room Air 05/22/22 12:00 05/22/22 13:09 Temperature Pulse Rate 89 Respiratory Rate Blood Pressure Pulse Oximetry Oxygen Delivery Room Air Intake/Output Intake/Output: Intake & Output 05/19/22 05/20/22 05/21/22 05/22/22 23:59 23:59 23:59 23:59 Intake Total 1000
[2022-05-22] MEDS: QUEtiapine FUMARATE 25 MG TABLET PO (20:48)
[2022-05-23] VITALS (16 sets, daily range): BP systolic 139–151; BP diastolic 76–89; PULSE 75–91; RESP 12–18; TEMP 36.7–37.4; O2SAT 93–97
[2022-05-23] MEDS: ALBUTEROL SULFATE NEB 2.5 MG/3 ML INH 5 MG INHALATION ×4 (03:10→20:34)
[2022-05-23] MEDS: IPRATROPIUM BR 0.02% INH SOLN 0.5 MG/2.5 ML VIAL INHALATION ×4 (03:14→20:34)
[2022-05-23 07:10] LABS: Hemoglobin 12.1 g/dL (12.0-15.0); Mean Corpuscular HGB Conc 32.7 g/dl (32-36); Mean Corpuscular Hemoglobin 29.5 pg (26-34); Mean Corpuscular Volume 90.2 fl (80-100); Mean Platelet Volume 9.6 fl (7.4-10.4); Platelet Count Result 196 k/mm3 (150-375); White Blood Count 12.2 K/mm3 (4.5-10.0)
[2022-05-23 07:44] LABS: Anion Gap 10 mmol/L (8-16); Blood Urea Nitrogen 13 mg/dL (7-17); Calcium 8.8 mg/dL (8.4-10.2); Carbon Dioxide 25 mmol/L (22-30); Chloride 101 mmol/L (98-107); Estimated CRCL calculation 34 ml/min; Estimated Glomerular Filt Rate 43; Glucose 117 mg/dL (65-110); Potassium 3.5 mmol/L (3.4-5.0); Sodium 136 mmol/L (137-145)
[2022-05-23] MEDS: ENOXAPARIN 30 MG/0.3 ML SYRINGE SUB-Q (08:35)
[2022-05-23] MEDS: lamoTRIgine 50 MG TABLET PO ×2 (08:35→16:18)
[2022-05-23] MEDS: allopurinoL 100 MG TABLET PO (08:35)
[2022-05-23] MEDS: ATORVASTATIN 10 MG TABLET PO (08:35)
[2022-05-23] MEDS: TOPIRAMATE 25 MG TABLET 50 MG PO ×2 (08:35→16:18)
[2022-05-23] MEDS: lamoTRIgine 100 MG TABLET PO ×2 (08:35→16:18)
[2022-05-23] MEDS: MEMANTINE 10 MG TABLET PO ×2 (08:35→16:18)
[2022-05-23] MEDS: PARoxetine 20 MG TABLET PO (08:35)
--- NOTE | 2022-05-23 16:06 | PM.IMPN ---
Progress Note: A&P Assessment and Plan (1) Acute renal failure superimposed on stage 3 chronic kidney disease: Code(s): N17.9 - Acute kidney failure, unspecified; N18.30 - Chronic kidney disease, stage 3 unspecified Status: Acute Assessment and Plan: Most likely due to hypovolemia and hypotension. Patient's blood pressure improved with 1 L normal saline bolus in the ER. An additional 500 mL bolus was given on arrival to the medical floor. Will continue the patient on maintenance IV fluids after that time. Will repeat BMP in a.m.. Antihypertensives on hold including hydrochlorothiazide and losartan. I suspect the patient is not taking her medications appropriately due to her dementia. She would benefit from simple of vacation of her medication regimen. Id eliminating clonidine for antihypertensive purposes. 05/21/2022 interval history: patient is poor historian, may have dementia, patient with syncopal episodes 2/2 dehydration due to poor PO intake resulting in EKATERINA upon arrival BUN/creatinine was 37/2.7 which has improved with IVF and now BUN/Creatinine is 26/1.5 will continue to hydrate patient and encourage PO intake, will have PT/OT worked with patient and patient will benefit going to SNF for rehab, will CPM, will monitor. 05/22/2022 interval history: patient is poor historian, may have dementia, patient with syncopal episodes 2/2 dehydration due to poor PO intake resulting in EKATERINA upon arrival BUN/creatinine was 37/2.7 which has improved with IVF and now BUN/Creatinine today is 16/1.1 will stop IVF as patient stats she is going bathroom too many and her symptoms have improved and not as dizzy, will encourage PO intake, will have PT/OT worked with patient and patient will benefit going to SNF for rehab, will CPM, will monitor. 05/23/2022 interval history: patient is poor historian, may have dementia, patient with syncopal episodes 2/2 dehydration due to poor PO intake resulting in EKATERINA upon arrival BUN/creatinine was 37/2.7 which has improved with IVF and on 05/22 BUN/Creatinine trended down to 16/1.1 stopped IVF as patient stats she is going bathroom too many times and her symptoms have improved and not as dizzy, will encourage PO intake, today patient feels short of breath may possibly volume overloaded due to over hydration, will give lasix 20mg IV x1, will have PT/OT worked with patient and patient will benefit going to SNF for rehab, will CPM, will monitor. (2) Hypotension due to hypovolemia: Code(s): I95.89 - Other hypotension; E86.1 - Hypovolemia Status: Acute Assessment and Plan: Improved after 1 L normal saline bolus provided in ER. Will give an additional 500 mL bolus at the patient actually has has evidence of orthostatic hypotension on re-evaluation. Will hold the patient's multiple antihypertensives. Plan Patient has been admitted as observation status. Subjective Date/time seen: 05/23/22 16:06 05/23/2022 interval history: patient is poor historian, may have dementia, patient with syncopal episodes 2/2 dehydration due to poor PO intake resulting in EKATERINA upon arrival BUN/creatinine was 37/2.7 which has improved with IVF and on 05/22 BUN/Creatinine trended down to 16/1.1 stopped IVF as patient stats she is going bathroom too many times and her symptoms have improved and not as dizzy, will encourage PO intake, today patient feels short of breath may possibly volume overloaded due to over hydration, will give lasix 20mg IV x1, will have PT/OT worked with patient and patient will benefit going to SNF for rehab, will CPM, will monitor. Exam Narrative: elderly frail Patient is comfortable, NAD HEENT: eyes are clear and none icteric LUNGS: normal respiratory effort ABD: distended Lower extremities: no edema SKIN: nonjaundiced Neuro: grossly intact. Objective Data Vital Signs Vital Signs: Vital Signs - 24 hr 05/22/22 20:09 05/22/22 20:00 05/23/22 00:00 Temperat
[2022-05-23] MEDS: FUROSEMIDE INJ 40 MG/4 ML VIAL 20 MG IV PUSH (16:19)
[2022-05-23] MEDS: QUEtiapine FUMARATE 25 MG TABLET PO (20:52)
[2022-05-24] VITALS (12 sets, daily range): BP systolic 128–144; BP diastolic 71–86; PULSE 72–91; RESP 14–16; TEMP 36.5–37.2; O2SAT 95–96
[2022-05-24 05:54] LABS: Hematocrit 35.7 % (37.0-47.0); Hemoglobin 11.8 g/dL (12.0-15.0); Mean Corpuscular HGB Conc 33.1 g/dl (32-36); Mean Corpuscular Hemoglobin 30.3 pg (26-34); Mean Corpuscular Volume 91.5 fl (80-100); Platelet Count Result 184 k/mm3 (150-375); White Blood Count 11.9 K/mm3 (4.5-10.0)
[2022-05-24 06:05] LABS: Anion Gap 10 mmol/L (8-16); Blood Urea Nitrogen 17 mg/dL (7-17); Carbon Dioxide 24 mmol/L (22-30); Chloride 98 mmol/L (98-107); Estimated CRCL calculation 34 ml/min; Estimated Glomerular Filt Rate 43; Glucose 131 mg/dL (65-110); Potassium 3.1 mmol/L (3.4-5.0); Sodium 132 mmol/L (137-145)
[2022-05-24] MEDS: lamoTRIgine 50 MG TABLET PO ×2 (08:05→17:29)
[2022-05-24] MEDS: TOPIRAMATE 25 MG TABLET 50 MG PO ×2 (08:05→17:29)
[2022-05-24] MEDS: ENOXAPARIN 30 MG/0.3 ML SYRINGE SUB-Q (08:06)
[2022-05-24] MEDS: PARoxetine 20 MG TABLET PO (08:06)
[2022-05-24] MEDS: allopurinoL 100 MG TABLET PO (08:06)
[2022-05-24] MEDS: ATORVASTATIN 10 MG TABLET PO (08:06)
[2022-05-24] MEDS: MEMANTINE 10 MG TABLET PO ×2 (08:06→17:29)
[2022-05-24] MEDS: lamoTRIgine 100 MG TABLET PO ×2 (08:06→17:29)
[2022-05-24] MEDS: POTASSIUM CHLORIDE 20 MEQ TABLET 40 MEQ PO (10:46)
--- NOTE | 2022-05-24 12:27 | PM.IMPN ---
Progress Note: A&P Assessment and Plan (1) Acute renal failure superimposed on stage 3 chronic kidney disease: Code(s): N17.9 - Acute kidney failure, unspecified; N18.30 - Chronic kidney disease, stage 3 unspecified Status: Acute Assessment and Plan: Most likely due to hypovolemia and hypotension. Patient's blood pressure improved with 1 L normal saline bolus in the ER. An additional 500 mL bolus was given on arrival to the medical floor. Will continue the patient on maintenance IV fluids after that time. Will repeat BMP in a.m.. Antihypertensives on hold including hydrochlorothiazide and losartan. I suspect the patient is not taking her medications appropriately due to her dementia. She would benefit from simple of vacation of her medication regimen. Id eliminating clonidine for antihypertensive purposes. 05/21/2022 interval history: patient is poor historian, may have dementia, patient with syncopal episodes 2/2 dehydration due to poor PO intake resulting in EKATERINA upon arrival BUN/creatinine was 37/2.7 which has improved with IVF and now BUN/Creatinine is 26/1.5 will continue to hydrate patient and encourage PO intake, will have PT/OT worked with patient and patient will benefit going to SNF for rehab, will CPM, will monitor. 05/22/2022 interval history: patient is poor historian, may have dementia, patient with syncopal episodes 2/2 dehydration due to poor PO intake resulting in EKATERINA upon arrival BUN/creatinine was 37/2.7 which has improved with IVF and now BUN/Creatinine today is 16/1.1 will stop IVF as patient stats she is going bathroom too many and her symptoms have improved and not as dizzy, will encourage PO intake, will have PT/OT worked with patient and patient will benefit going to SNF for rehab, will CPM, will monitor. 05/23/2022 interval history: patient is poor historian, may have dementia, patient with syncopal episodes 2/2 dehydration due to poor PO intake resulting in EKATERINA upon arrival BUN/creatinine was 37/2.7 which has improved with IVF and on 05/22 BUN/Creatinine trended down to 16/1.1 stopped IVF as patient stats she is going bathroom too many times and her symptoms have improved and not as dizzy, will encourage PO intake, today patient feels short of breath may possibly volume overloaded due to over hydration, will give lasix 20mg IV x1, will have PT/OT worked with patient and patient will benefit going to SNF for rehab, will CPM, will monitor. 05/24/2022 interval history: patient is poor historian, may have dementia, patient with syncopal episodes 2/2 dehydration due to poor PO intake resulting in EKATERINA upon arrival BUN/creatinine was 37/2.7 which has improved with IVF and on 05/22 BUN/Creatinine trended down to 16/1.1 stopped IVF as patient stats she is going bathroom too many times and her symptoms have improved and not as dizzy, will encourage PO intake, on 05/23 patient felt short of breath may possibly volume overloaded due to over hydration, gave lasix 20mg IV x1, today patient stats just not feel well, has cough and sore throat, exam does not pharyngitis, will do rapid strept, will have PT/OT worked with patient and patient will benefit going to SNF for rehab, will CPM, will monitor. (2) Hypotension due to hypovolemia: Code(s): I95.89 - Other hypotension; E86.1 - Hypovolemia Status: Acute Assessment and Plan: Improved after 1 L normal saline bolus provided in ER. Will give an additional 500 mL bolus at the patient actually has has evidence of orthostatic hypotension on re-evaluation. Will hold the patient's multiple antihypertensives. Plan Patient has been admitted as observation status. Subjective Date/time seen: 05/24/22 12:27 05/24/2022 interval history: patient is poor historian, may have dementia, patient with syncopal episodes 2/2 dehydration due to poor PO intake resulting in EKATERINA upon arrival BUN/creatinine was 37/2.7 which has improved with IVF and on 05/22 B
[2022-05-24] MEDS: IPRATROPIUM BR 0.02% INH SOLN 0.5 MG/2.5 ML VIAL INHALATION ×2 (14:35→20:32)
[2022-05-24] MEDS: ALBUTEROL SULFATE NEB 2.5 MG/3 ML INH 5 MG INHALATION ×2 (14:40→20:32)
[2022-05-24] MEDS: QUEtiapine FUMARATE 25 MG TABLET PO (20:24)
[2022-05-25] VITALS (17 sets, daily range): BP systolic 144–158; BP diastolic 73–96; PULSE 70–92; RESP 14–18; TEMP 36.2–36.9; O2SAT 95–97
[2022-05-25] MEDS: IPRATROPIUM BR 0.02% INH SOLN 0.5 MG/2.5 ML VIAL INHALATION ×4 (02:38→20:27)
[2022-05-25] MEDS: ALBUTEROL SULFATE NEB 2.5 MG/3 ML INH 5 MG INHALATION ×4 (02:39→20:27)
[2022-05-25 05:50] LABS: Hematocrit 36.3 % (37.0-47.0); Hemoglobin 11.6 g/dL (12.0-15.0); Mean Corpuscular Hemoglobin 29.9 pg (26-34); Mean Corpuscular Volume 93.6 fl (80-100); Mean Platelet Volume 9.8 fl (7.4-10.4); Platelet Count Result 189 k/mm3 (150-375); Red Blood Count 3.88 M/mm3 (4.2-5.4); Red Cell Distribution Width 13.1 % (11.5-14.5); White Blood Count 11.5 K/mm3 (4.5-10.0)
[2022-05-25 06:01] LABS: Anion Gap 10 mmol/L (8-16); Blood Urea Nitrogen 19 mg/dL (7-17); Calcium 8.6 mg/dL (8.4-10.2); Carbon Dioxide 25 mmol/L (22-30); Chloride 101 mmol/L (98-107); Estimated CRCL calculation 34 ml/min; Estimated Glomerular Filt Rate 43; Glucose 122 mg/dL (65-110); Potassium 3.5 mmol/L (3.4-5.0); Sodium 136 mmol/L (137-145)
[2022-05-25] MEDS: PARoxetine 20 MG TABLET PO (08:05)
[2022-05-25] MEDS: allopurinoL 100 MG TABLET PO (08:06)
[2022-05-25] MEDS: TOPIRAMATE 25 MG TABLET 50 MG PO ×2 (08:06→17:20)
[2022-05-25] MEDS: MEMANTINE 10 MG TABLET PO ×2 (08:06→17:20)
[2022-05-25] MEDS: ATORVASTATIN 10 MG TABLET PO (08:06)
[2022-05-25] MEDS: lamoTRIgine 50 MG TABLET PO ×2 (08:06→17:19)
[2022-05-25] MEDS: lamoTRIgine 100 MG TABLET PO ×2 (08:06→17:19)
[2022-05-25] MEDS: POTASSIUM CHLORIDE 20 MEQ TABLET 40 MEQ PO (09:24)
[2022-05-25] MEDS: ENOXAPARIN 30 MG/0.3 ML SYRINGE SUB-Q (09:24)
[2022-05-25 15:17] LABS: Appearance Urine Clear (Clear); Bilirubin Urine Negative (Negative); Color Urine Yellow (Yellow); Glucose Urine UA Negative (Negative); Ketones Urine Negative (Negative); Leukocyte Esterase Ur 3+ LEU/UL (Negative); Nitrate Urine Negative (Negative); Protein Urine Trace mg/dL (Negative); Specific Grav Ur 1.015 (1.001-1.035)
[2022-05-25 15:24] LABS: Add Urine Microscopic? YES; Blood Urine Trace-Intact (Negative)
[2022-05-25 15:26] LABS: Bacteria Urine Trace /hpf; Mucus Urine Rare /lpf; Squamous Epithelial Cell Urine Rare /hpf (Few); WBC Urine 21-30 /hpf
--- NOTE | 2022-05-25 17:44 | PM.IMPN ---
Progress Note: A&P Assessment and Plan (1) Acute renal failure superimposed on stage 3 chronic kidney disease: Code(s): N17.9 - Acute kidney failure, unspecified; N18.30 - Chronic kidney disease, stage 3 unspecified Status: Acute Assessment and Plan: Most likely due to hypovolemia and hypotension. Patient's blood pressure improved with 1 L normal saline bolus in the ER. An additional 500 mL bolus was given on arrival to the medical floor. Will continue the patient on maintenance IV fluids after that time. Will repeat BMP in a.m.. Antihypertensives on hold including hydrochlorothiazide and losartan. I suspect the patient is not taking her medications appropriately due to her dementia. She would benefit from simple of vacation of her medication regimen. Id eliminating clonidine for antihypertensive purposes. 05/21/2022 interval history: patient is poor historian, may have dementia, patient with syncopal episodes 2/2 dehydration due to poor PO intake resulting in EKATERINA upon arrival BUN/creatinine was 37/2.7 which has improved with IVF and now BUN/Creatinine is 26/1.5 will continue to hydrate patient and encourage PO intake, will have PT/OT worked with patient and patient will benefit going to SNF for rehab, will CPM, will monitor. 05/22/2022 interval history: patient is poor historian, may have dementia, patient with syncopal episodes 2/2 dehydration due to poor PO intake resulting in EKATERINA upon arrival BUN/creatinine was 37/2.7 which has improved with IVF and now BUN/Creatinine today is 16/1.1 will stop IVF as patient stats she is going bathroom too many and her symptoms have improved and not as dizzy, will encourage PO intake, will have PT/OT worked with patient and patient will benefit going to SNF for rehab, will CPM, will monitor. 05/23/2022 interval history: patient is poor historian, may have dementia, patient with syncopal episodes 2/2 dehydration due to poor PO intake resulting in EKATERINA upon arrival BUN/creatinine was 37/2.7 which has improved with IVF and on 05/22 BUN/Creatinine trended down to 16/1.1 stopped IVF as patient stats she is going bathroom too many times and her symptoms have improved and not as dizzy, will encourage PO intake, today patient feels short of breath may possibly volume overloaded due to over hydration, will give lasix 20mg IV x1, will have PT/OT worked with patient and patient will benefit going to SNF for rehab, will CPM, will monitor. 05/24/2022 interval history: patient is poor historian, may have dementia, patient with syncopal episodes 2/2 dehydration due to poor PO intake resulting in EKATERINA upon arrival BUN/creatinine was 37/2.7 which has improved with IVF and on 05/22 BUN/Creatinine trended down to 16/1.1 stopped IVF as patient stats she is going bathroom too many times and her symptoms have improved and not as dizzy, will encourage PO intake, on 05/23 patient felt short of breath may possibly volume overloaded due to over hydration, gave lasix 20mg IV x1, today patient stats just not feel well, has cough and sore throat, exam does not pharyngitis, will do rapid strept, will have PT/OT worked with patient and patient will benefit going to SNF for rehab, will CPM, will monitor. 05/25/2022 interval history: patient is poor historian, may have dementia, patient with syncopal episodes 2/2 dehydration due to poor PO intake resulting in EKATERINA upon arrival BUN/creatinine was 37/2.7 which has improved with IVF and on 05/22 BUN/Creatinine trended down to 16/1.1 stopped IVF as patient stats she is going bathroom too many times and her symptoms have improved and not as dizzy, will encourage PO intake, on 05/23 patient felt short of breath may possibly volume overloaded due to over hydration, gave lasix 20mg IV x1, on 05/24 patient stated just not feeling well, had cough and sore throat, exam does not show pharyngitis, rapid strept was negative, today patient rooms smell bad urine odor, UA shows many white counts, pat
[2022-05-25] MEDS: cefTRIAXone 2 GM in SODIUM CHLORIDE 0.9% IV 100 ML 200 ML IVPB (18:35)
[2022-05-25] MEDS: QUEtiapine FUMARATE 25 MG TABLET PO (20:46)
[2022-05-26] VITALS (19 sets, daily range): BP systolic 123–152; BP diastolic 69–88; PULSE 72–90; RESP 16–18; TEMP 36.4–36.9; O2SAT 95–98
[2022-05-26] MEDS: IPRATROPIUM BR 0.02% INH SOLN 0.5 MG/2.5 ML VIAL INHALATION ×4 (02:33→20:01)
[2022-05-26] MEDS: ALBUTEROL SULFATE NEB 2.5 MG/3 ML INH 5 MG INHALATION ×4 (02:33→20:01)
[2022-05-26 06:06] LABS: Hemoglobin 11.2 g/dL (12.0-15.0); Mean Corpuscular Hemoglobin 30.2 pg (26-34); Mean Corpuscular Volume 94.3 fl (80-100); Mean Platelet Volume 9.7 fl (7.4-10.4); Platelet Count Result 200 k/mm3 (150-375); Red Blood Count 3.71 M/mm3 (4.2-5.4); Red Cell Distribution Width 13.1 % (11.5-14.5); White Blood Count 8.8 K/mm3 (4.5-10.0)
[2022-05-26 06:11] LABS: Anion Gap 10 mmol/L (8-16); Blood Urea Nitrogen 16 mg/dL (7-17); Calcium 8.4 mg/dL (8.4-10.2); Carbon Dioxide 24 mmol/L (22-30); Chloride 104 mmol/L (98-107); Estimated CRCL calculation 34 ml/min; Estimated Glomerular Filt Rate 43; Glucose 116 mg/dL (65-110); Potassium 3.5 mmol/L (3.4-5.0); Sodium 138 mmol/L (137-145)
[2022-05-26] MEDS: TOPIRAMATE 25 MG TABLET 50 MG PO ×2 (08:24→17:16)
[2022-05-26] MEDS: allopurinoL 100 MG TABLET PO (08:24)
[2022-05-26] MEDS: PARoxetine 20 MG TABLET PO (08:24)
[2022-05-26] MEDS: MEMANTINE 10 MG TABLET PO ×2 (08:24→17:16)
[2022-05-26] MEDS: ATORVASTATIN 10 MG TABLET PO (08:24)
[2022-05-26] MEDS: ENOXAPARIN 30 MG/0.3 ML SYRINGE SUB-Q (08:24)
[2022-05-26] MEDS: lamoTRIgine 50 MG TABLET PO ×2 (08:24→18:50)
[2022-05-26] MEDS: lamoTRIgine 100 MG TABLET PO ×2 (08:24→18:50)
--- NOTE | 2022-05-26 12:07 | P.PNIM_ITS ---
Progress Note: A&P Assessment and Plan (1) Acute renal failure superimposed on stage 3 chronic kidney disease: Code(s): N17.9 - Acute kidney failure, unspecified; N18.30 - Chronic kidney disease, stage 3 unspecified Status: Acute Assessment and Plan: Most likely due to hypovolemia and hypotension. Patient's blood pressure improved with 1 L normal saline bolus in the ER. An additional 500 mL bolus was given on arrival to the medical floor. Will continue the patient on maintenance IV fluids after that time. Will repeat BMP in a.m.. Antihypertensives on hold including hydrochlorothiazide and losartan. I suspect the patient is not taking her medications appropriately due to her dementia. She would benefit from simple of vacation of her medication regimen. Id eliminating clonidine for antihypertensive purposes. 05/21/2022 interval history: patient is poor historian, may have dementia, patient with syncopal episodes 2/2 dehydration due to poor PO intake resulting in EKATERINA upon arrival BUN/creatinine was 37/2.7 which has improved with IVF and now BUN/Creatinine is 26/1.5 will continue to hydrate patient and encourage PO intake, will have PT/OT worked with patient and patient will benefit going to SNF for rehab, will CPM, will monitor. 05/22/2022 interval history: patient is poor historian, may have dementia, patient with syncopal episodes 2/2 dehydration due to poor PO intake resulting in EKATERINA upon arrival BUN/creatinine was 37/2.7 which has improved with IVF and now BUN/Creatinine today is 16/1.1 will stop IVF as patient stats she is going bathroom too many and her symptoms have improved and not as dizzy, will encourage PO intake, will have PT/OT worked with patient and patient will benefit going to SNF for rehab, will CPM, will monitor. 05/23/2022 interval history: patient is poor historian, may have dementia, patient with syncopal episodes 2/2 dehydration due to poor PO intake resulting in EKATERINA upon arrival BUN/creatinine was 37/2.7 which has improved with IVF and on 05/22 BUN/Creatinine trended down to 16/1.1 stopped IVF as patient stats she is going bathroom too many times and her symptoms have improved and not as dizzy, will encourage PO intake, today patient feels short of breath may possibly volume overloaded due to over hydration, will give lasix 20mg IV x1, will have PT/OT worked with patient and patient will benefit going to SNF for rehab, will CPM, will monitor. 05/24/2022 interval history: patient is poor historian, may have dementia, patient with syncopal episodes 2/2 dehydration due to poor PO intake resulting in EKATERINA upon arrival BUN/creatinine was 37/2.7 which has improved with IVF and on 05/22 BUN/Creatinine trended down to 16/1.1 stopped IVF as patient stats she is going bathroom too many times and her symptoms have improved and not as dizzy, will encourage PO intake, on 05/23 patient felt short of breath may possibly volume overloaded due to over hydration, gave lasix 20mg IV x1, today patient stats just not feel well, has cough and sore throat, exam does not pharyngitis, will do rapid strept, will have PT/OT worked with patient and patient will benefit going to SNF for rehab, will CPM, will monitor. 05/25/2022 interval history: patient is poor historian, may have dementia, patient with syncopal episodes 2/2 dehydration due to poor PO intake resulting in EKATERINA upon arrival BUN/creatinine was 37/2.7 which has improved with IVF and on 05/22 BUN/Creatinine trended down to 16/1.1 stopped IVF as patient stats she is going bathroom too many times and her symptoms have improved and not as dizzy, will encourage PO intake, on 05/23 patient felt short of breath may possibly volume overloaded due to over hydration, gave lasix
[2022-05-26] MEDS: cefTRIAXone 2 GM in SODIUM CHLORIDE 0.9% IV 100 ML 200 ML IVPB (17:14)
[2022-05-26] MEDS: QUEtiapine FUMARATE 25 MG TABLET PO (21:06)
[2022-05-26] MEDS: MELATONIN 5 MG TABLET PO (23:36)
[2022-05-27] VITALS (11 sets, daily range): BP systolic 138–145; BP diastolic 80–81; PULSE 70–111; RESP 16–18; TEMP 36.1–36.7; O2SAT 96–98
[2022-05-27] MEDS: IPRATROPIUM BR 0.02% INH SOLN 0.5 MG/2.5 ML VIAL INHALATION ×2 (01:58→07:49)
[2022-05-27] MEDS: ALBUTEROL SULFATE NEB 2.5 MG/3 ML INH 5 MG INHALATION ×2 (01:58→07:48)
[2022-05-27 04:56] LABS: Hematocrit 33.6 % (37.0-47.0); Hemoglobin 10.6 g/dL (12.0-15.0); Mean Corpuscular HGB Conc 31.5 g/dl (32-36); Mean Corpuscular Hemoglobin 29.9 pg (26-34); Mean Corpuscular Volume 94.6 fl (80-100); Mean Platelet Volume 9.7 fl (7.4-10.4); Platelet Count Result 222 k/mm3 (150-375); Red Blood Count 3.55 M/mm3 (4.2-5.4); Red Cell Distribution Width 12.9 % (11.5-14.5); White Blood Count 7.3 K/mm3 (4.5-10.0)
[2022-05-27 05:27] LABS: Anion Gap 8 mmol/L (8-16); Blood Urea Nitrogen 19 mg/dL (7-17); Calcium 9.2 mg/dL (8.4-10.2); Carbon Dioxide 25 mmol/L (22-30); Chloride 103 mmol/L (98-107); Estimated CRCL calculation 34 ml/min; Estimated Glomerular Filt Rate 43; Glucose 122 mg/dL (65-110); Potassium 3.8 mmol/L (3.4-5.0); Sodium 136 mmol/L (137-145)
[2022-05-27] MEDS: allopurinoL 100 MG TABLET PO (09:43)
[2022-05-27] MEDS: MEMANTINE 10 MG TABLET PO (09:43)
[2022-05-27] MEDS: TOPIRAMATE 25 MG TABLET 50 MG PO (09:43)
[2022-05-27] MEDS: lamoTRIgine 50 MG TABLET PO (09:43)
[2022-05-27] MEDS: ATORVASTATIN 10 MG TABLET PO (09:43)
[2022-05-27] MEDS: ENOXAPARIN 30 MG/0.3 ML SYRINGE SUB-Q (09:43)
[2022-05-27] MEDS: lamoTRIgine 100 MG TABLET PO (09:43)
[2022-05-27] MEDS: PARoxetine 20 MG TABLET PO (09:44)
--- NOTE | 2022-05-27 11:18 | PM.IMPN ---
Progress Note: A&P Assessment and Plan (1) Hypotension due to hypovolemia: Code(s): I95.89 - Other hypotension; E86.1 - Hypovolemia Status: Acute Assessment and Plan: Resolved after IV fluid resuscitation. Patient was likely on too many medications for blood pressure. Will stop clonidine and hydrochlorothiazide and start losartan at 25 mg daily (2) Acute renal failure superimposed on stage 3 chronic kidney disease: Code(s): N17.9 - Acute kidney failure, unspecified; N18.30 - Chronic kidney disease, stage 3 unspecified Status: Acute Assessment and Plan: Likely combination of dehydration as well as medication. Medication adjustment as above. Patient's creatinine now back to baseline (3) Cystitis: Code(s): N30.90 - Cystitis, unspecified without hematuria Status: Acute Assessment and Plan: Patient reportedly was feeling ill, your noted to be foul smelling. Urine culture showing 3+ leukocyte esterase with 21-30 urine wbc's. Urine culture negative. Will give patient 1 more dose of Rocephin to complete a total of 3 days. 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): Code(s): I69.319 - Unspecified symptoms and signs involving cognitive functions following cerebral infarction Status: Acute Assessment and Plan: Continue statin (5) History of aortic dissection: Code(s): Z86.79 - Personal history of other diseases of the circulatory system Status: Acute (6) Dementia: Code(s): F03.90 - Unspecified dementia without behavioral disturbance Status: Acute Assessment and Plan: Continue lamotrigine, topiramate, Seroquel, memantine (7) Tobacco abuse: Code(s): Z72.0 - Tobacco use Status: Acute Assessment and Plan: Patient states she is going to stop smoking Subjective Date/time seen: 05/27/22 11:18 Patient examined, chart reviewed. No acute events. Pressure is noted to be slightly hypertensive. Review of Systems Review of Systems: Ten point ROS reviewed, negative unless otherwise specified per subjective Exam Narrative: elderly frail Patient is comfortable, NAD HEENT: eyes are clear and none icteric LUNGS: normal respiratory effort ABD: distended Lower extremities: no edema SKIN: nonjaundiced Neuro: grossly intact. Objective Data Vital Signs Vital Signs: Vital Signs - 24 hr 05/26/22 12:00 05/26/22 13:59 05/26/22 14:00 Temperature 98.4 F Pulse Rate 90 81 73 Respiratory Rate 16 16 Blood Pressure 133/69 Pulse Oximetry 95 Oxygen Delivery 05/26/22 14:13 05/26/22 14:14 05/26/22 16:00 Temperature Pulse Rate 76 76 Respiratory Rate 16 Blood Pressure Pulse Oximetry 96 Oxygen Delivery Room Air 05/26/22 19:43 05/26/22 20:03 05/26/22 20:04 Temperature 98.2 F Pulse Rate 85 73 Respiratory Rate 18 16 Blood Pressure 152/88 H Pulse Oximetry 98 97 Oxygen Delivery Room Air 05/26/22 20:20 05/26/22 20:00 05/27/22 00:00 Temperature Pulse Rate 76 74 72 Respiratory Rate 16 Blood Pressure Pulse Oximetry Oxygen Delivery 05/27/22 01:58 05/27/22 02:08 05/27/22 04:00 Temperature Pulse Rate 94 95 111 H Respiratory Rate 16 16 Blood Pressure Pulse Oximetry Oxygen Delivery 05/27/22 05:37 05/27/22 07:49 05/27/22 07:59 Temperature 97 F L Pulse Rate 70 89 92 Respiratory Rate 18 16 16 Blood Pressure 145/81 H Pulse Oximetry 96 Oxygen Delivery 05/27/22 09:43 Temperature Pulse Rate Respiratory Rate Blood Pressure Pulse Oximetry Oxygen Delivery Room Air Intake/Output Intake/Output: Intake & Output 05/24/22 05/25/22 05/26/22 05/27/22 23:59 23:59 23:59 23:59 Intake Total 5618 675 1681 100 Output Total 9126 818 7064 Balance -99 20 232 100 Meds/Results Medications: Active Medications Generic Name Dose Route Start Last Admin Trade Name Freq PRN Reason Stop Dose
[2022-05-27] MEDS: cefTRIAXone 2 GM in SODIUM CHLORIDE 0.9% IV 100 ML 200 ML IVPB (13:53)
--- NOTE | 2022-05-27 13:59 | P.DS_ITS ---
DS: Admitting Diagnosis Discharge Date 05/27/2022 Admitting Diagnosis Dehydration DS: Summary Hospital Course Reason for hospitalization: Dehydration Hospital Course: Patient presented due to multiple falls, reporting dizziness/lightheadedness. Workup revealing for EKATERINA, patient also hypotensive on presentation. Patient aggressively resuscitated with improvement in blood pressure and symptoms. Patient has EKATERINA also resolve with IV hydration. Patient's clonidine and losartan/hydrochlorothiazide combination pill was stopped, and patient was started on losartan 25 mg daily. Patient also reported feeling unwell, UA revealing for potential UTI. Urine culture was negative. Patient treated with 3 days of Rocephin. Patient discharge to SNF in stable condition. Time Spent with Patient Time attestation: Total time spent providing and/or coordinating discharge services: Exam Narrative: elderly frail Patient is comfortable, NAD HEENT: eyes are clear and none icteric LUNGS: normal respiratory effort ABD: distended Lower extremities: no edema SKIN: nonjaundiced Neuro: grossly intact. DS: Data Data Completed and Pending Labs on day of discharge: Labs from last 24 hours 05/27/22 05/27/22 04:14 04:14 WBC 7.3 RBC 3.55 L Hgb 10.6 L Hct 33.6 L MCV 94.6 MCH 29.9 MCHC 31.5 L RDW 12.9 Plt Count 222 MPV 9.7 Sodium 136 L Potassium 3.8 Chloride 103 Carbon Dioxide 25 Anion Gap 8 BUN 19 H Creatinine 1.20 H Estim Creat Clear Calc 34 Estimated GFR 43 L Glucose 122 H Calcium 9.2 Discharge Plan Discharge Attending physician on discharge: Tej Leslie Discharging Clinician: Tej Leslie Patient Disposition: NH Long Term/Asst Living Activity: as tolerated Diet: heart healthy Patient Instructions: Antibiotic Form, How to Stop Smoking (DC) Stand Alone Forms: General Discharge Information Discharge Medications: New losartan 25 mg Tablet 25 mg PO DAILY Qty: 30 1RF Continued quetiapine [Seroquel] 25 mg tablet 25 mg PO QHS Qty: 90 1RF Anoro Ellipta 62.5-25 mcg/actuation blister with device 1 inh inhalation Q24H Qty: 60 1RF memantine [Namenda] 10 mg tablet 10 mg PO BID Qty: 60 5RF lamotrigine 150 mg tablet 150 mg PO BID Qty: 180 1RF allopurinol 100 mg tablet 100 mg PO DAILY Label Comments: day ; d/t missed dosage paroxetine HCl 20 mg tablet 20 mg PO DAILY Label Comments: ; d/t missed dosage topiramate 50 mg tablet 50 mg PO BID Label Comments: ; d/t missed dosage atorvastatin 10 mg tablet 10 mg PO DAILY Qty: 90 1RF Discontinued clonidine HCl 0.1 mg tablet 0.1 mg PO Q8H Qty: 90 2RF losartan-hydrochlorothiazide 50-12.5 mg tablet 1 tablet PO DAILY Qty: 90 2RF Date of admission: 05/26/22 12:04 Primary Care Provider: Jaelyn Ozuna Admitting Provider: Tyree Reyes Attending physician on admission: Tej Leslie Condition: Stable
[2022-05-27 14:19] LABS: EDCOVIDSCREEN Negative (Negative)
--- NOTE | 2022-05-27 17:41 | PC.NURSE ---
Pt sleeping most of the day. Pt was woken up to give morning medication and eat breakfast. Pt had family come and visit her throughout the day. Pt slept between visitors. Pt discharged to SNF. Pt monitored and had no change in status for the shift.
== END 2022-05-27 17:30 | DRG 641 ==
LOC: ANHED 17:45 → ANH3MED 20:11
PROVIDERS: Emergency Medicine; Family Medicine; Physician Assistant; Admitting Provider Internal Medicine; Emergency Provider Emergency Medicine; PCP Family Medicine; Visit Provider Internal Medicine
DX: E86.0 Dehydration (principal); N17.9 Acute kidney failure, unspecified; F33.1 Major depressive disorder, recurrent, moderate; I95.89 Other hypotension; E86.1 Hypovolemia; N30.90 Cystitis, unspecified without hematuria; Z20.822 Contact with and (suspected) exposure to COVID-19; N18.30 Chronic kidney disease, stage 3 unspecified; F01.50 Vascular dementia, unspecified severity, without behavioral disturbance, psychotic disturbance, mood disturbance, and anxiety; I69.319 Unspecified symptoms and signs involving cognitive functions following cerebral infarction; I12.9 Hypertensive chronic kidney disease with stage 1 through stage 4 chronic kidney disease, or unspecified chronic kidney disease; E78.5 Hyperlipidemia, unspecified; J44.9 Chronic obstructive pulmonary disease, unspecified; F17.210 Nicotine dependence, cigarettes, uncomplicated; E78.2 Mixed hyperlipidemia; G47.33 Obstructive sleep apnea (adult) (pediatric); R29.6 Repeated falls; Z79.899 Other long term (current) drug therapy; Z86.79 Personal history of other diseases of the circulatory system; Z95.0 Presence of cardiac pacemaker
CPT/HCPCS: 36415; 70450; 71046; 80048; 80053; 80069; 81001; 83605; 83735; 85025; 85027; 87081; 87086; 87088; 87426; 87880; 93005; 94640; 96360; 96361; 97110; 97162; 97165; 97530; 99285; A9270; C9803; J0696; J1650; J1940; J7030

== ENCOUNTER 2022-07-27 09:40 | Inpatient (IN) | payer MEDICARE, MEDICAID, SELFPAY ==
[2022-07-27] VITALS (10 sets, daily range): BP systolic 102–163; BP diastolic 78–98; PULSE 70–90; RESP 16–20; TEMP 36.1–36.8; O2SAT 95–100; BMI 34.2
--- NOTE | ~2022-07-27 | CT_ITS ---
EXAMINATION: CTA neck DATE: 07/27/2022 20:54 INDICATION: Syncopal episode TECHNIQUE: Computed tomographic angiography (CTA) of the neck was performed with 100 mL Omnipaque-350 intravenous contrast. Multiplanar reconstructions and maximum intensity projection 3D-reconstruction s were created by the technologist on a separate workstation. Automated exposure control and iterativ e reconstruction technique were employed. The dose-length product was 660.45 mGy-cm. COMPARISON: None. FINDINGS: There is an eccentric fusiform aneurysm of the aortic arch with cephalad predominant bulging which be gins immediately after the takeoff of the left subclavian artery. The aneurysm measures 5.9 x 5.8 cm in maximal transaxial diameter. A significant portion of the aneurysm sac is thrombosed with a smooth margin with the contrast opacified portions the lumen. The appearance of the aneurysm suggests this may result from a thrombosed short type B dissection or penetrating atherosclerotic ulcer. No signifi cant atherosclerotic plaque or stenosis at the origin of the great vessels arising from the arch. The cervical portion of the bilateral vertebral arteries are codominant with no significant stenosis or dissection. There is small amount of atherosclerotic plaque with 0% stenosis of the right carotid bulb relative t o normal distal artery lumen diameter (NASCET criteria). There is mild plaque with 0% stenosis of the left carotid bulb relative to normal distal artery lumen diameter. No significant atherosclerotic pl aque at the intracranial arteries. There is however dolichoectasia of the cerebral arteries at and ar ound the crow of Werner and of the basilar artery characterized by fusiform dilation as well as mele e tortuosity to the course of the carotid siphons. The basilar artery dilates to a maximum of 8.4 mm. There is a 4.5 mm infundibulum at the tip of the basilar artery. Bilateral P1 segments are patent. T he tortuosity of the bilateral carotid siphons results in mild, <50% stenosis due to slight kinking o f the vessels. The cavernous segments of the bilateral internal carotid arteries measure up to 7 mm o n the left and 6.5 mm on the right. The ophthalmic segment of the left internal carotid artery measur es up to 5.5 mm in diameter and the terminal segment of the left internal carotid artery measures up to 10.5 mm in maximal diameter bilateral A1 segments are patent. There is a patent anterior communica ting artery. Mucosal thickening in the left maxillary sinus. Mastoid air cells and middle ear cavitie s are clear. No abnormally enhancing lesions in the visualized brain. Small left thalamic and left ba kenji ganglia old lacunar infarcts. IMPRESSION: 1. Minimal plaque resulting in 0% stenosis of the right and left carotid bulbs relative to normal dis leida artery lumen diameter (NASCET criteria). 2. Eccentric 5.9 cm fusiform aneurysm of the distal aortic arch with partially thrombosed lumen appea sheryl which suggests this may result from a thrombosed short type B dissection or large thrombosed pe netrating atherosclerotic ulcer. 3. Dolichoectasia of the basilar arteries and above the arteries of the crow of Werner. Reviewed, dictated and finalized at location A. IMPRESSION: 1. Minimal plaque resulting in 0% stenosis of the right and left carotid bulbs relative to normal distal artery lumen diameter (NASCET criteria). 2. Eccentric 5.9 cm fusiform aneurysm of the distal aortic arch with partially thrombosed lumen appearance which suggests this may result from a thrombosed sh ort type B dissection or large thrombosed penetrating atherosclerotic ulcer. 3. Dolichoectasia of the basilar arteries and above the arteries of the crow of Werner.
--- NOTE | ~2022-07-27 | CT_ITS ---
EXAMINATION: CT brain wo con DATE: 07/27/2022 10:32 INDICATION: Transient ischemic attack. TECHNIQUE: Computed tomography (CT) of the head was performed without intravenous contrast. The mA wa s adjusted according to patient size. Iterative reconstruction technique was employed. The dose-lengt h product was 605.33 mGy-cm. COMPARISON: Head CT 05/20/2022, 02/05/19 FINDINGS: There are old infarcts in the bilateral thalami. There is an old infarct in left frontal lo be. There are scattered areas of low attenuation in the cerebral white matter. There is no intracrani al hemorrhage, acute infarction, or abnormal intracranial mass lesion. There is vertebral basilar dol ichoectasia. The basilar artery measures 9 mm in diameter. There is an 11 mm fusiform aneurysm of dis leida left internal carotid artery. The orbits are normal. There is mild mucosal thickening in the para nasal sinuses. The mastoid air cells are normal. IMPRESSION: 1. Old infarcts involving the bilateral thalami and left frontal lobe. 2. Mild nonspecific cerebral white matter disease, which likely represents chronic small vessel ische toni disease. 3. 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 Co nsider head CTA. Reviewed, dictated and finalized at location A. IMPRESSION: 1. Old infarcts involving the bilateral thalami and left frontal lobe. 2. 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 3. 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 Chronic vertebral basi lar dolichoectasia. Consider head CTA.
--- NOTE | ~2022-07-27 | XR_ITS ---
EXAMINATION: XR chest 1V DATE: 07/27/2022 10:39 INDICATION: Syncope. TECHNIQUE: A single frontal view of the chest was obtained. COMPARISON: Chest 2 views 05/20/2022 FINDINGS: There is mild atelectasis in the lower lung zones. No pleural effusion or pneumothorax. Car diomegaly is noted. There is a left chest pacer/defibrillator with leads in right atrium and right ve ntricle. IMPRESSION: 1. Mild atelectasis in the lower lung zones. 2. Cardiomegaly. Reviewed, dictated and finalized at location A.
--- NOTE | 2022-07-27 09:44 | ED.SYNCOPE ---
HPI - Syncope General Chief Complaint: Syncope Stated Complaint: syncope Time Seen by Provider: 07/27/22 09:44 Source: patient and EMS Mode of arrival: EMS Limitations: no limitations History of Present Illness HPI narrative: 82 years old white female came from rehab by ambulance because of syncope. Patient was sitting on a wheelchair ready for her breakfast and suddenly became unresponsive, EMT arrived, patient was slowly responding to question but was awake, alert and oriented x4, does not remember passing out, denying any symptoms. Currently is asymptomatic. History of CVA, pacemaker, hypertension. Related Data Home Medications Medication Instructions Recorded Confirmed allopurinol 100 mg tablet 100 mg PO DAILY 05/20/22 05/20/22 paroxetine HCl 20 mg tablet 20 mg PO DAILY 05/20/22 05/20/22 topiramate 50 mg tablet 50 mg PO BID 05/20/22 05/20/22 Allergies Allergy/AdvReac Type Severity Reaction Status Date / Time prochlorperazine Allergy Mild shortness Verified 05/20/22 20:54 of breath propoxyphene Allergy Mild Fainting Verified 05/20/22 20:54 Sulfa (Sulfonamide Allergy Mild shortness Verified 05/20/22 20:54 Antibiotics) of breath Review of Systems Review of Systems: All systems reviewed & are unremarkable except as noted in HPI and below PMFSH Past Medical History Medical History Acute kidney injury superimposed on chronic kidney disease B12 deficiency Cardiac pacemaker Cerebral aneurysm Is with leakage in 1994 that was repaired with 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 syndrome) Thoracic aortic aneurysm (TAA) Tobacco dependence due to cigarettes Vascular dementia without behavioral disturbance Vitamin D deficiency Surgical History Surgical History History of brain surgery (~1994) Aneurysm repair History of total hysterectomy with bilateral salpingo-oophorectomy (BSO) Family History Family History Father Hypertension Family history of cardiovascular disease Mother Heart disease Sibling Drug abuse Alcohol abuse Son Schizophrenia Social History Social History Social History: She lives in her own apartment in [place]. She lives alone. She has 2 sons 1 of which has schizophrenia. She has smoked a 0.5-1 pack of cigarettes per day since the age of 13. Code status: Full code Surrogate decision maker: Abhi Matute (son) Smoking packs per day: 0.5 Smoking cigarettes per day: 10.0 Years smoked: 69 Smoking pack-years: 34.50 Smoking status: Current every day smoker Tobacco type: cigarettes Second hand tobacco smoke exposure: Yes Alcohol intake: never Drinks per week: 1 Substance use: never Substance use type: does not use Gender identity (if verbalized by the patient): Female Sexual Orientation (if Verbalized by the Patient): Straight or Heterosexual Spiritual care concerns: No Exam Narrative: General appearance: Well-developed, well-nourished Skin: Normal color Head: Normocephalic, nontraumatic Eyes: Clear conjunctiva ENT: Oropharynx normal, ears normal, nose normal Neck: Supple, nontender Chest and respiratory: Airway patent, no respiratory distress, no accessory muscle use Heart: Regular rate/rhythm Abdomen: Soft, nontender, no or
--- NOTE | 2022-07-27 09:47 | ECG_ITS ---
Measurements Intervals [place] Rate: 89 P: 157 IA: 270 QRS: -19 QRSD: 92 T: 68 QT: 376 QTc: 459 Interpretive Statements ELECTRONIC ATRIAL PACEMAKER NONSPECIFIC ST-T WAVE ABNORMALITY COMPARED TO ECG 05/20/2022 17:06:58 NO SIGNIFICANT CHANGES Electronically Signed On 07-27-2022 13:14:11 CDT by Carlos Wu M.D.
[2022-07-27 10:25] LABS: Basophils Percent Auto 0.5 % (0.2-1.2); Eosinophils Absolute Auto 0.2 K/mm3 (0-0.3); Eosinophils Percent Auto 2.4 % (0-4.4); Immature Granulocyte Absolute 0.06 K/mm3 (0.00-0.031); Immature Granulocyte Percent A 0.9 % (0-0.5); Lymphocytes Absolute Auto 1.24 K/mm3 (0.9-3.2); Lymphocytes Percent Auto 18.9 % (18.3-44.2); Mean Corpuscular HGB Conc 31.6 g/dl (32-36); Mean Corpuscular Hemoglobin 30.6 pg (26-34); Mean Corpuscular Volume 96.9 fl (80-100); Mean Platelet Volume 9.6 fl (7.4-10.4); Monocytes Absolute Auto 0.5 K/mm3 (0.1-0.6); Monocytes Percent Auto 7.9 % (2.6-8.5); Neutrophils Absolute Auto 4.5 K/mm3 (1.3-6.7); Neutrophils Percent Auto 69.4 % (45.5-73.1); Platelet Count Result 170 k/mm3 (150-375); Red Blood Count 3.92 M/mm3 (4.2-5.4); Red Cell Distribution Width 14.4 % (11.5-14.5); White Blood Count 6.6 K/mm3 (4.5-10.0)
[2022-07-27 10:39] LABS: Alanine Aminotransferase 16 U/L (6-35); Albumin Level 3.9 g/dL (3.5-5.1); Alkaline Phosphatase 74 U/L (38-126); Anion Gap 12 mmol/L (8-16); Aspartate Amino Transferase 18 U/L (14-36); Bilirubin,Total 0.2 mg/dL (0.2-1.3); Blood Urea Nitrogen 19 mg/dL (7-17); Calcium 8.1 mg/dL (8.4-10.2); Carbon Dioxide 23 mmol/L (22-30); Chloride 109 mmol/L (98-107); Estimated CRCL calculation 30 ml/min; Estimated Glomerular Filt Rate 36; Glucose 138 mg/dL (65-110); Potassium 3.6 mmol/L (3.4-5.0); Sodium 144 mmol/L (137-145)
[2022-07-27 11:27] LABS: Prothrombin Time 12.5 Seconds (11.1-14.7)
[2022-07-27 11:51] LABS: Partial Thromboplastin Time 20.3 SECONDS (22.3-36.8)
--- NOTE | 2022-07-27 12:56 | PM.IMHP ---
H&P: HPI History of Present Illness Date/Time: 07/27/22 12:56 Chief Complaint: Syncopal episode Narrative: This is a 82-year-old female patient with a history of dementia. The patient is currently in a rehab facility. The patient was sitting in her wheelchair and she was ready for breakfast when she suddenly became unresponsive. When EMS arrived she was slowly responding to the questions. The patient is able to answers most of my questions but she endorses some memory loss. The patient does have a history of having a CVA and a pacemaker. The pacemaker was interrogated. Patient's creatinine is 1.4 with her baseline being around 1.2. BUN is 19 and GFR is 30 which is also about her baseline calcium was low slightly low 8.1. Troponin initial was negative and the 3 hour was negative as well. The 3rd troponin is pending. EKG was read as electronic atrial pacemaker nonspecific ST T-wave abnormality which this was comparable to her EKG May 20, 2022. The patient does have a history of benign postural vertigo. She has no history of any seizures. Chest x-ray was read as mild atelectasis in the lower lung zones. Cardiomegaly. Head CT was read as the following 1. Old infarcts involving the bilateral thalami and left frontal lobe. 2. Mild nonspecific cerebral white matter disease, which likely represents chronic small vessel ischemic disease. 3. 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 Consider head CTA. The patient also tells me that she has a history of having a cerebral aneurysm and has had surgery to repair the aneurysm. The patient is being admitted to observation status on the date of service of 07/27/2022. Review of Systems Review of Systems: See HPI All systems reviewed & are unremarkable except as noted in HPI and below Constitutional: Constitutional: Reports as per HPI and Reports no additional constitutional complaints Eyes: Eyes: Reports as per HPI and Reports no additional eye complaints ENT: Reports system reviewed and no additional complaints, except as documented and Reports Normal hearing present Cardiovascular: Cardiovascular: Reports no additional cardiovascular complaints Respiratory: Respiratory: Reports no additional respiratory complaints and Reports no additional respiratory complaints Gastrointestinal: Gastrointestinal: Reports as per HPI and Reports no additional gastrointestinal complaints Musculoskeletal: Musculoskeletal: Reports no additional musculoskeletal complaints Integumentary/Breasts: Skin/Breast: Reports system reviewed and no additional complaints, except as docu and Reports as per HPI Neurologic: Reports system reviewed and no additional complaints, except as documented, Reports as per HPI and Reports Normal hearing present Psychiatric: Psychiatric: Reports no additional psychiatric complaints and Reports as per HPI Endocrine: Endocrine: Reports no additional endocrine complaints Hematologic/Lymphatic: Hematologic/Lymphatic: Reports no additional hematologic/lymphatic complaints Allergic/Immunologic: Allergic/Immunologic: Reports no additional allergic/immunologic complaints [facility] Past Medical History Medical History Acute kidney injury superimposed on chronic kidney disease B12 deficiency Cardiac pacemaker Cerebral aneurysm Is with leakage in 1994 that was repaired with 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
[2022-07-27 12:59] LABS: Troponin I < 0.012 ng/mL (0.000-0.034)
[2022-07-27 13:45] LABS: Troponin I < 0.012 ng/mL (0.000-0.034)
--- NOTE | 2022-07-27 14:03 | PC.NURSE ---
[employer] at bedside to interrogate pacemaker.
[2022-07-27] MEDS: SODIUM CHLORIDE 0.9% IV 1,000 ML 100 ML IV CONT (14:14)
--- NOTE | 2022-07-27 15:46 | ADMGEN ---
This patient, Daylin Cheyr, was admitted to IMU Room 203-01. Patient/family oriented to hospital policies and general routines including ID bracelet, bed and alarms, visiting hours, pain management, procedures, bathroom and other care routines, personal items, smoking policy, room service/diet, and visiting hours. Information on how to activate the Rapid Response Team has been discussed. Patient/Family are encouraged to report perceived risks to care and to ask questions if they do not understand what they are told or what they should do.
[2022-07-27 17:28] LABS: Troponin I < 0.012 ng/mL (0.000-0.034)
[2022-07-27] MEDS: MEMANTINE 10 MG TABLET PO (21:23)
[2022-07-27] MEDS: lamoTRIgine 50 MG TABLET 150 MG PO (21:23)
[2022-07-27] MEDS: carvediloL 12.5 MG TABLET PO (21:23)
[2022-07-27] MEDS: QUEtiapine FUMARATE 25 MG TABLET PO (21:24)
[2022-07-27] MEDS: TOPIRAMATE 25 MG TABLET 50 MG PO (21:24)
[2022-07-28] VITALS (14 sets, daily range): BP systolic 125–146; BP diastolic 62–82; PULSE 69–84; RESP 18–20; TEMP 36.2–36.6; O2SAT 94–98
--- NOTE | 2022-07-28 | ECHO_ITS ---
Patient Info Name: Daylin Chery Age: 82 years : 1940 Gender: Female Ht: 63 in Wt: 193 lbs BSA: 2.01 m2 HR: 91 bpm BP: 147 / 80 mmHg Technical Quality: Fair Exam Date: 07/28/2022 2:01 PM Exam Location: [facility] Pulmonary Exam Room: 203 Patient Status: Inpatient Admit Date: 07/27/2022 Staff Ordering Physician: Arleen Isbell NP Quick Sketch Artist: Melba Amaya RDCS Attending Provider: Tyree Reyes MD Referring Physician: Sukhi GOTTI; Exam Type: CA echo doppler color flow Study Info Indications - SYNCOPE Complete two-dimensional, color flow and Doppler transthoracic echocardiogram is performed. Summary 1. Complete two-dimensional, color flow and Doppler transthoracic echocardiogram is performed. 2. Left ventricular chamber dimension is normal. 3. Left ventricular systolic function is normal, estimated at 60-65%. 4. There is mildly increased left ventricular wall thickness. 5. The left ventricular diastolic function is grade I diastolic dysfunction. 6. E/e' 14 is mildly elevated. 7. There is trace tricuspid valve regurgitation. 8. No pulmonary hypertension, estimated pulmonary arterial systolic pressure is 32 mmHg. 9. There is trace pulmonic regurgitation. 10. There is small circumferential pericardial effusion. Left Ventricle E/e' 14 is mildly elevated. Left ventricular chamber dimension is normal. Left ventricular systolic function is normal, estimated at 60-65%. There is mildly increased left ventricular wall thickness. The left ventricular diastolic function is grade I diastolic dysfunction. Right Ventricle Right ventricular chamber dimension is normal. Right ventricular systolic function is normal. Left Atria Left atrial chamber dimension is normal. Right Atria Right atrial chamber dimension is normal. Aortic Valve The aortic valve is trileaflet. There is no aortic valve stenosis. There is no aortic valve regurgitation. Pulmonic Valve There is trace pulmonic regurgitation. Mitral Valve There is no mitral valve stenosis. There is no mitral valve regurgitation. Tricuspid Valve There is trace tricuspid valve regurgitation. No pulmonary hypertension, estimated pulmonary arterial systolic pressure is 32 mmHg. Pericardium/Pleural There is small circumferential pericardial effusion. No cardiac tamponade. Inferior Vena Cava Normal inferior vena cava with >50% collapse upon inspiration consistent with normal right atrial pressure, 5 mmHg. Aorta The aortic root size at the sinus of Valsalva is normal. Left Ventricular Outflow Tract Name Value Normal LVOT 2D LVOT Diameter 2.1 cm LVOT Doppler LVOT Peak Gradient 5 mmHg LVOT Mean Gradient 3 mmHg LVOT VTI 22 cm LVOT VTI/AV VTI Ratio 0.8 LVOT Stroke Volume 78 ml LVOT CO 17.0 l/min LVOT CI 8.4 l/min/m2 Pulmonic Valve
[2022-07-28] MEDS: MELATONIN 3 MG TABLET PO (01:41)
[2022-07-28 04:56] LABS: Alanine Aminotransferase 17 U/L (6-35); Albumin Level 3.7 g/dL (3.5-5.1); Alkaline Phosphatase 78 U/L (38-126); Anion Gap 8 mmol/L (8-16); Aspartate Amino Transferase 19 U/L (14-36); Bilirubin,Total 0.4 mg/dL (0.2-1.3); Blood Urea Nitrogen 17 mg/dL (7-17); Calcium 7.9 mg/dL (8.4-10.2); Carbon Dioxide 23 mmol/L (22-30); Chloride 110 mmol/L (98-107); Estimated CRCL calculation 30 ml/min; Estimated Glomerular Filt Rate 36; Glucose 104 mg/dL (65-110); Phosphorus 2.8 mg/dL (2.5-4.5); Sodium 141 mmol/L (137-145)
[2022-07-28] MEDS: UMECLIDINIUM/VILANTEROL 62.5-25 MCG ELLIPTA 1 PUFF INHALATION (07:52)
[2022-07-28] MEDS: allopurinoL 100 MG TABLET PO (08:54)
[2022-07-28] MEDS: MECLIZINE HCL 6.25 MG TABLET PO ×3 (08:54→16:40)
[2022-07-28] MEDS: ATORVASTATIN 10 MG TABLET PO (08:54)
[2022-07-28] MEDS: PARoxetine 20 MG TABLET PO (08:54)
[2022-07-28] MEDS: lamoTRIgine 50 MG TABLET 150 MG PO ×2 (08:54→20:50)
[2022-07-28] MEDS: MEMANTINE 10 MG TABLET PO ×2 (08:55→20:50)
[2022-07-28] MEDS: carvediloL 12.5 MG TABLET PO ×2 (08:55→20:50)
--- NOTE | 2022-07-28 11:34 | WPDNEURCNPN ---
Assessment and Plan Assessment and plan (1) Syncope: Code(s): R55 - Syncope and collapse Status: Acute (2) History of cerebrovascular accident: Code(s): Z86.73 - Personal history of transient ischemic attack (TIA), and cerebral infarction without residual deficits Status: Acute (3) Pacemaker: Code(s): Z95.0 - Presence of cardiac pacemaker Status: Acute (4) Dementia: Code(s): F03.90 - Unspecified dementia, unspecified severity, without behavioral disturbance, psychotic disturbance, mood disturbance, and anxiety Status: Acute Plan Ms. Chery is an 82 year old female with a history of dementia, prior stroke, HTN, HLD, cardiac pacemaker, type B aortic dissection who presented after an episode of loss of consciousness while seated. EEG was normal. Differential is broad including seizure (at risk for seizures given prior stroke) vs cardiogenic etiology vs vascular insufficiency (vertebrobasilar dolichoectasia and chronic aortic dissection). - Echo pending - Patient is already on Lamictal and Topamax for non-seizure related conditions. I'm not entirely convinced this episode was a seizure especially given the CTA findings and her cardiac history. However, considering the uncertainty surrounding the episode, it would be reasonable to consider increasing Topamax for better coverage for future seizure prevention. Attempted to call son to discuss med changes. Consult date: 07/28/22 Time Seen: 11:34 Reason for consult: Syncope vs seizure HPI: Daylin Chery is a 82 year old female with a history of prior stroke, dementia, HTN, HLD, JUAN C, cardiac pacemake, type B aortic dissection (medically treated at [place]). She came from rehab on 07/27/22 after having an episode of unresponsiveness while sitting in her wheelchair. She denies any preceding lightheadedness or presyncopal symptoms, chest pain or palpitations. Patient reports she did have stool incontinence sometime during or right after the episode. EMS was called and initially patient was slow to respond. Further description of event is not available. She was taken to [place] ED. EKG was unchanged from prior. 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 Echo has been ordered and is pending. EEG done this morning which was normal. She was admitted in May 2022 for lightheadedness as well. Thought to be secondary to dehydration/hypotension. There is a PCP office visit from November 2020 for lightheadedness as well. She is has no history of seizures but is on Lamictal 150mg BID which she takes for mood and Topamax 50mg daily.. Review of Systems Constitutional: Constitutional: Reports no additional constitutional complaints Eyes: Eyes: Reports blurry vision Comments: h/o cataracts ENT: Comments: hearing loss (chronic) Cardiovascular: Cardiovascular: Reports chest pain Respiratory: Respiratory: Reports dyspnea on exertion Gastrointestinal: Gastrointestinal: Reports no additional gastrointestinal complaints Genitourinary: Genitourinary: Reports urinary incontinence Comments: urge incontinence Musculoskeletal: Musculoskeletal: Reports no additional musculoskeletal complaints Integumentary/Breasts: Skin/Breast: Reports system reviewed and no additional complaints, except as docu Neurologic: Reports as per HPI Psychiatric: Psychiatric: Reports depression PMFSH Past Medical History Medical History Acute kidney injury superimposed on chronic kidney disease B12 deficiency Cardiac pacemaker Cerebral aneurysm Is with leakage in 1994 that was repaired
--- NOTE | 2022-07-28 11:43 | WPDNEUROLOGY ---
Neurology EEG Report General Information Date of Study: 07/28/22 TEST Routine EEG DIAGNOSIS Unresponsive episode CONDITION OF RECORDING Awake, drowsy, and asleep EEG NUMBER [id number] CLINICAL HISTORY Patient had an episode of unresponsiveness while sitting in her wheelchair. EEG DESCRIPTION The recording is continuous. There is a well developed anterior-posterior gradient. No significant asymmetries of background activities are noted. During drowsiness there is was waxing and waning of the dominant rhythm with eventual replacement by a mixture of beta, alpha, and theta activity. As the patient enters stage II sleep, symmetrical spindles and K-complexes are present. Arousal is unremarkable. There are no epileptiform discharges or seizures during this recording. Hyperventilation and photic stimulation were not performed. IMPRESSION This is a normal routine EEG recorded in drowsy and asleep states. There are no electrographic seizures identified, nor are there any epileptiform discharges. Please note that a normal EEG cannot exclude a seizure disorder. Clinical correlation is recommended.
--- NOTE | 2022-07-28 12:06 | PM.IMPN ---
Progress Note: A&P Assessment and Plan (1) Syncope: Code(s): R55 - Syncope and collapse Status: Acute Assessment and Plan: altered mental status could also be secondary to polypharmacy, after workup, if symptoms do not improve, would consider decreasing dosages of mental health and dementia medications appreciate Neuro consult, EEG pending, echo pending, consider Cardiology consultation pending echo results orthostatic blood pressures appear within normal limits pacemaker is status post interrogation and found to be working correctly (2) History of cerebrovascular accident: Code(s): Z86.73 - Personal history of transient ischemic attack (TIA), and cerebral infarction without residual deficits Status: Acute Assessment and Plan: stable, no acute deficits (3) Dementia: Code(s): F03.90 - Unspecified dementia, unspecified severity, without behavioral disturbance, psychotic disturbance, mood disturbance, and anxiety Status: Acute Assessment and Plan: continue Namenda (4) Lightheadedness: Code(s): R42 - Dizziness and giddiness Status: Acute Assessment and Plan: chronic, appears to be at baseline, trial meclizine check head and neck CTA (5) Major depressive disorder, recurrent, moderate: Code(s): F33.1 - Major depressive disorder, recurrent, moderate Status: Acute Assessment and Plan: continue Lamictal, Seroquel and Paxil (6) Memory deficit: Code(s): R41.3 - Other amnesia Status: Acute Assessment and Plan: continue Namenda (7) Mixed hyperlipidemia: Code(s): E78.2 - Mixed hyperlipidemia Status: Acute Assessment and Plan: continue Lipitor (8) HTN (hypertension): Code(s): I10 - Essential (primary) hypertension Status: Acute Assessment and Plan: continue Coreg Plan DVT prophylaxis with SCDs GI prophylaxis not indicated Code status full code Subjective Date/time seen: 07/28/22 12:06 Interval history: No overnight events noted. No chest pain or shortness of breath. No nausea, vomiting or diarrhea. No fevers or chills. Review of Systems Review of Systems: 12 point review of systems was assessed and was negative except as noted in the HPI Exam Narrative: General: No acute distress, alert and oriented per baseline HEENT: Atraumatic, normocephalic, mucous membranes moist CV: Regular rate and rhythm, S1, S2 Lungs: Clear to auscultation bilaterally, no rales or crackles noted, no wheezes, good air entry Abdomen: Soft, nontender, nondistended Extremities: Normal to inspection Skin: No rashes noted, no lesions or wounds seen Psych: Euthymic, normal affect Objective Data Vital Signs Vital Signs: Vital Signs - 24 hr 07/27/22 14:07 07/27/22 15:08 07/27/22 15:55 Temperature 97.0 F L Pulse Rate 70 71 72 Respiratory Rate 17 18 20 Blood Pressure 130/93 H 133/81 137/78 Pulse Oximetry 100 98 99 Oxygen Delivery 07/27/22 15:40 07/27/22 16:00 07/27/22 20:00 Temperature Pulse Rate 70 Respiratory Rate Blood Pressure 163/93 H Pulse Oximetry Oxygen Delivery Room Air 07/27/22 20:25 07/27/22 20:26 07/27/22 20:00 Temperature Pulse Rate Respiratory Rate Blood Pressure 149/95 H 155/98 H Pulse Oximetry Oxygen Delivery Room Air 07/27/22 23:35 07/27/22 20:00 07/28/22 00:00 Temperature 97.7 F Pulse Rate 75 73 71 Respiratory Rate 18 Blood Pressure 147/80 H Pulse Oximetry 95 Oxygen Delivery 07/28/22 04:00 07/28/22 07:50 07/28/22 08:04 Temperature 97.5 F L Pulse Rate 71 71 71 Respiratory Rate 20 Blood Pressure 139/82 Pulse Oximetry 96 95 Oxygen Delivery Room Air 07/28/22 08:00 07/28/22 08:00 07/27/22 16:05 Temperature 97.0 F L Pulse Rate 72 72 Respiratory Rate 20 Blood Pressure 137/78 Pulse Oximetry 99 Oxygen Delivery Room Air Intake/Output Intake/Ou
--- NOTE | 2022-07-28 19:03 | PC.NURSE ---
This patient, Daylin Chery, was received from [facility] on 07/28/22 at 1856. Patient/family oriented to unit policies and routines.
[2022-07-28] MEDS: QUEtiapine FUMARATE 25 MG TABLET PO (20:50)
[2022-07-28] MEDS: TOPIRAMATE 25 MG TABLET 50 MG PO (20:50)
[2022-07-29] VITALS (12 sets, daily range): BP systolic 124–172; BP diastolic 76–109; PULSE 64–120; RESP 16–18; TEMP 36.1–36.5; O2SAT 93–95
[2022-07-29 06:53] LABS: Basophils Percent Auto 0.6 % (0.2-1.2); Eosinophils Absolute Auto 0.2 K/mm3 (0-0.3); Hematocrit 35.2 % (37.0-47.0); Hemoglobin 11.4 g/dL (12.0-15.0); Immature Granulocyte Absolute 0.09 K/mm3 (0.00-0.031); Immature Granulocyte Percent A 1.4 % (0-0.5); Lymphocytes Absolute Auto 2.02 K/mm3 (0.9-3.2); Lymphocytes Percent Auto 32.2 % (18.3-44.2); Mean Corpuscular HGB Conc 32.4 g/dl (32-36); Mean Corpuscular Volume 92.6 fl (80-100); Mean Platelet Volume 9.9 fl (7.4-10.4); Monocytes Absolute Auto 0.6 K/mm3 (0.1-0.6); Monocytes Percent Auto 9.6 % (2.6-8.5); Neutrophils Absolute Auto 3.3 K/mm3 (1.3-6.7); Neutrophils Percent Auto 53.2 % (45.5-73.1); Platelet Count Result 175 k/mm3 (150-375); Red Cell Distribution Width 14.1 % (11.5-14.5); White Blood Count 6.3 K/mm3 (4.5-10.0)
[2022-07-29 07:05] LABS: Alanine Aminotransferase 15 U/L (6-35); Albumin Level 3.8 g/dL (3.5-5.1); Alkaline Phosphatase 68 U/L (38-126); Anion Gap 12 mmol/L (8-16); Aspartate Amino Transferase 19 U/L (14-36); Bilirubin,Total 0.4 mg/dL (0.2-1.3); Blood Urea Nitrogen 17 mg/dL (7-17); Carbon Dioxide 24 mmol/L (22-30); Chloride 106 mmol/L (98-107); Estimated CRCL calculation 37 ml/min; Estimated Glomerular Filt Rate 48; Glucose 95 mg/dL (65-110); Potassium 3.6 mmol/L (3.4-5.0); Sodium 142 mmol/L (137-145)
--- NOTE | 2022-07-29 07:54 | PM.IMPN ---
Progress Note: A&P Assessment and Plan (1) Syncope: Code(s): R55 - Syncope and collapse Status: Acute Assessment and Plan: back to baseline mentation neurology workup negative echo showed an EF of 60-65% with grade 1 diastolic dysfunction and no significant valvular abnormalities nor pulmonary hypertension appreciate Neuro consult, EEG pending, echo pending, consider Cardiology consultation pending echo results orthostatic blood pressures appear within normal limits pacemaker is status post interrogation and found to be working correctly (2) History of cerebrovascular accident: Code(s): Z86.73 - Personal history of transient ischemic attack (TIA), and cerebral infarction without residual deficits Status: Acute Assessment and Plan: stable, no acute deficits (3) Dementia: Code(s): F03.90 - Unspecified dementia, unspecified severity, without behavioral disturbance, psychotic disturbance, mood disturbance, and anxiety Status: Acute Assessment and Plan: continue Namenda (4) Lightheadedness: Code(s): R42 - Dizziness and giddiness Status: Acute Assessment and Plan: chronic, somewhat improved with meclizine and IVF, but persistent (5) Major depressive disorder, recurrent, moderate: Code(s): F33.1 - Major depressive disorder, recurrent, moderate Status: Acute Assessment and Plan: continue Lamictal, Seroquel and Paxil (6) Memory deficit: Code(s): R41.3 - Other amnesia Status: Acute Assessment and Plan: continue Namenda (7) Mixed hyperlipidemia: Code(s): E78.2 - Mixed hyperlipidemia Status: Acute Assessment and Plan: continue Lipitor (8) HTN (hypertension): Code(s): I10 - Essential (primary) hypertension Status: Acute Assessment and Plan: continue Coreg Plan DVT prophylaxis with SCDs GI prophylaxis not indicated Code status full code Subjective Date/time seen: 07/29/22 07:54 Interval history: No overnight events noted. No chest pain or shortness of breath. No nausea, vomiting or diarrhea. No fevers or chills. Patient still with intermittent dizziness upon standing/walking, not every time and not showing up on orthostatic VS. Review of Systems Review of Systems: 12 point review of systems was assessed and was negative except as noted in the HPI Exam Narrative: General: No acute distress, alert and oriented per baseline HEENT: Atraumatic, normocephalic, mucous membranes moist CV: Regular rate and rhythm, S1, S2 Lungs: Clear to auscultation bilaterally, no rales or crackles noted, no wheezes, good air entry Abdomen: Soft, nontender, nondistended Extremities: Normal to inspection Skin: No rashes noted, no lesions or wounds seen Psych: Euthymic, normal affect Objective Data Vital Signs Vital Signs: Vital Signs - 24 hr 07/28/22 08:04 07/28/22 08:00 07/28/22 08:00 Temperature 97.5 F L Pulse Rate 71 72 Respiratory Rate 20 Blood Pressure 139/82 Pulse Oximetry 95 Oxygen Delivery Room Air 07/28/22 12:00 07/28/22 12:44 07/28/22 12:45 Temperature 97.2 F L Pulse Rate 84 72 74 Respiratory Rate 18 Blood Pressure 133/73 133/76 Pulse Oximetry 98 Oxygen Delivery 07/28/22 12:45 07/28/22 16:00 07/28/22 16:53 Temperature 97.8 F Pulse Rate 79 72 82 Respiratory Rate 20 Blood Pressure 125/76 137/73 Pulse Oximetry 95 Oxygen Delivery 07/28/22 22:00 07/28/22 22:03 07/28/22 22:05 Temperature 97.8 F Pulse Rate 74 69 71 Respiratory Rate 18 18 18 Blood Pressure 146/76 H 145/62 H 144/70 H Pulse Oximetry 94 94 94 Oxygen Delivery 07/28/22 20:00 07/29/22 00:00 07/29/22 04:00 Temperature Pulse Rate 73 73 74 Respiratory Rate Blood Pressure Pulse Oximetry Oxygen Delivery 07/29/22 05:46 Temperature 96.9 F L Pulse Rate 80 Respiratory Rate 18 Blood Pressure 157/93 H Pulse Oxim
[2022-07-29] MEDS: carvediloL 12.5 MG TABLET PO ×2 (08:32→20:11)
[2022-07-29] MEDS: MEMANTINE 10 MG TABLET PO ×2 (08:33→20:12)
[2022-07-29] MEDS: lamoTRIgine 50 MG TABLET 150 MG PO ×2 (08:33→20:12)
[2022-07-29] MEDS: MECLIZINE HCL 6.25 MG TABLET PO ×3 (08:33→16:48)
[2022-07-29] MEDS: ATORVASTATIN 10 MG TABLET PO (08:33)
[2022-07-29] MEDS: allopurinoL 100 MG TABLET PO (08:34)
[2022-07-29] MEDS: PARoxetine 20 MG TABLET PO (08:34)
[2022-07-29] MEDS: UMECLIDINIUM/VILANTEROL 62.5-25 MCG ELLIPTA 1 PUFF INHALATION (09:39)
--- NOTE | 2022-07-29 12:31 | WPDNEUROPN ---
Progress Note: A&P Assessment and Plan (1) Syncope: Code(s): R55 - Syncope and collapse Status: Acute (2) Pacemaker: Code(s): Z95.0 - Presence of cardiac pacemaker Status: Acute (3) Lightheadedness: Code(s): R42 - Dizziness and giddiness Status: Acute (4) Dementia: Code(s): F03.90 - Unspecified dementia, unspecified severity, without behavioral disturbance, psychotic disturbance, mood disturbance, and anxiety Status: Acute (5) History of cerebrovascular accident: Code(s): Z86.73 - Personal history of transient ischemic attack (TIA), and cerebral infarction without residual deficits Status: Acute Plan Ms. Chery is an 82 year old female with a history of dementia, prior stroke, HTN, HLD, cardiac pacemaker, type B aortic dissection who presented after an episode of loss of consciousness while seated. EEG was normal. Differential is broad including seizure (at risk for seizures given prior stroke) vs cardiogenic etiology vs vascular insufficiency (vertebrobasilar dolichoectasia and chronic aortic dissection). Suspicion for seizure is lower. Patient reports feeling lightheaded with walking. Suspect a component of orthostatic intolerance. - Will hold off on adding or adjusting any seizure medications Subjective Date/time seen: 07/29/22 12:31 Interval history: Daylin Chery is a 82 year old female with a history of prior stroke, dementia, HTN, HLD, JUAN C, cardiac pacemake, type B aortic dissection (medically treated at [place]). She came from rehab on 07/27/22 after having an episode of unresponsiveness while sitting in her wheelchair. She denies any preceding lightheadedness or presyncopal symptoms, chest pain or palpitations. Patient reports she did have stool incontinence sometime during or right after the episode. EMS was called and initially patient was slow to respond. Further description of event is not available. She was taken to [place] ED. EKG was unchanged from prior. 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 Echo has been ordered and is pending. EEG done this morning which was normal. ?She was admitted in May 2022 for lightheadedness as well. Thought to be secondary to dehydration/hypotension. There is a PCP office visit from November 2020 for lightheadedness as well.? She is has no history of seizures but is on Lamictal 150mg BID which she takes for mood and Topamax 50mg daily (unclear for what). Patient reports feeling dizzy while trying to walk around earlier today. She endorses lightheadedness with blurry vision. She denies any chest pain, SOB, palpitations. Review of Systems Constitutional: Constitutional: Reports fatigue Eyes: Eyes: Reports blurry vision ENT: Comments: hearing loss Cardiovascular: Cardiovascular: Reports no additional cardiovascular complaints Respiratory: Respiratory: Reports no additional respiratory complaints Gastrointestinal: Gastrointestinal: Reports no additional gastrointestinal complaints Genitourinary: Genitourinary: Reports no additional female genitourinary complaints Musculoskeletal: Musculoskeletal: Reports no additional musculoskeletal complaints Integumentary/Breasts: Skin/Breast: Reports system reviewed and no additional complaints, except as docu Neurologic: Reports as per HPI Psychiatric: Psychiatric: Reports no additional psychiatric complaints Objective Data Vital Signs Vital Signs: Vital Signs - 24 hr 07/28/22 12:44 07/28/22 12:45 07/28/22 12:45 Temperature 36.2 C L Pulse Rate 72 74 79 Respiratory Rate 18 Blood Pressure 133/73 133/76 125/76 Pulse
[2022-07-29] MEDS: QUEtiapine FUMARATE 25 MG TABLET PO (20:12)
[2022-07-29] MEDS: TOPIRAMATE 25 MG TABLET 50 MG PO (20:12)
[2022-07-30 06:53] LABS: Basophils Percent Auto 0.5 % (0.2-1.2); Eosinophils Absolute Auto 0.2 K/mm3 (0-0.3); Eosinophils Percent Auto 3.3 % (0-4.4); Hematocrit 39.6 % (37.0-47.0); Hemoglobin 12.6 g/dL (12.0-15.0); Immature Granulocyte Percent A 1.6 % (0-0.5); Lymphocytes Absolute Auto 1.82 K/mm3 (0.9-3.2); Lymphocytes Percent Auto 28.6 % (18.3-44.2); Mean Corpuscular HGB Conc 31.8 g/dl (32-36); Mean Corpuscular Hemoglobin 30.4 pg (26-34); Mean Corpuscular Volume 95.7 fl (80-100); Mean Platelet Volume 9.8 fl (7.4-10.4); Monocytes Absolute Auto 0.7 K/mm3 (0.1-0.6); Monocytes Percent Auto 10.7 % (2.6-8.5); Neutrophils Absolute Auto 3.5 K/mm3 (1.3-6.7); Neutrophils Percent Auto 55.3 % (45.5-73.1); Platelet Count Result 199 k/mm3 (150-375); Red Blood Count 4.14 M/mm3 (4.2-5.4); Red Cell Distribution Width 13.9 % (11.5-14.5); White Blood Count 6.4 K/mm3 (4.5-10.0)
[2022-07-30 07:19] LABS: Alanine Aminotransferase 18 U/L (6-35); Albumin Level 4.1 g/dL (3.5-5.1); Alkaline Phosphatase 70 U/L (38-126); Anion Gap 10 mmol/L (8-16); Aspartate Amino Transferase 25 U/L (14-36); Bilirubin,Total 0.5 mg/dL (0.2-1.3); Blood Urea Nitrogen 15 mg/dL (7-17); Calcium 8.3 mg/dL (8.4-10.2); Carbon Dioxide 22 mmol/L (22-30); Chloride 108 mmol/L (98-107); Estimated CRCL calculation 37 ml/min; Estimated Glomerular Filt Rate 48; Glucose 107 mg/dL (65-110); Potassium 3.7 mmol/L (3.4-5.0); Sodium 140 mmol/L (137-145)
--- NOTE | 2022-07-30 07:36 | PM.DS ---
DS: Admitting Diagnosis Discharge Date July 30, 2022 Admitting Diagnosis Altered mental status DS: Discharge Diagnosis Discharge Diagnosis (1) Syncope: Code(s): R55 - Syncope and collapse Status: Acute Assessment and Plan: back to baseline mentation neurology workup negative echo showed an EF of 60-65% with grade 1 diastolic dysfunction and no significant valvular abnormalities nor pulmonary hypertension appreciate Neuro consult, EEG pending, echo pending, consider Cardiology consultation pending echo results orthostatic blood pressures appear within normal limits pacemaker is status post interrogation and found to be working correctly (2) History of cerebrovascular accident: Code(s): Z86.73 - Personal history of transient ischemic attack (TIA), and cerebral infarction without residual deficits Status: Acute Assessment and Plan: stable, no acute deficits (3) Dementia: Code(s): F03.90 - Unspecified dementia, unspecified severity, without behavioral disturbance, psychotic disturbance, mood disturbance, and anxiety Status: Acute Assessment and Plan: continue Namenda (4) Lightheadedness: Code(s): R42 - Dizziness and giddiness Status: Acute Assessment and Plan: chronic, somewhat improved with meclizine and IVF, but persistent (5) Major depressive disorder, recurrent, moderate: Code(s): F33.1 - Major depressive disorder, recurrent, moderate Status: Acute Assessment and Plan: continue Lamictal, Seroquel and Paxil (6) Memory deficit: Code(s): R41.3 - Other amnesia Status: Acute Assessment and Plan: continue Namenda (7) Mixed hyperlipidemia: Code(s): E78.2 - Mixed hyperlipidemia Status: Acute Assessment and Plan: continue Lipitor (8) HTN (hypertension): Code(s): I10 - Essential (primary) hypertension Status: Acute Assessment and Plan: continue Coreg Plan DVT prophylaxis with SCDs GI prophylaxis not indicated Code status full code DS: Summary Hospital Course Hospital Course: 82 year old female with a history of prior stroke, dementia, HTN, HLD, JUAN C, cardiac pacemake, type B aortic dissection (medically treated at [place]). She came from rehab on 07/27/22 after having an episode of unresponsiveness while sitting in her wheelchair. She denies any preceding lightheadedness or presyncopal symptoms, chest pain or palpitations. Patient reports she did have stool incontinence sometime during or right after the episode. EMS was called and initially patient was slow to respond. Further description of event is not available. She was taken to [place] ED. EKG was unchanged from prior. 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 Echo has been ordered and is pending. EEG done this morning which was normal. ?She was admitted in May 2022 for lightheadedness as well. Thought to be secondary to dehydration/hypotension. There is a PCP office visit from November 2020 for lightheadedness as well.? She is has no history of seizures but is on Lamictal 150mg BID which she takes for mood and Topamax 50mg daily (unclear for what). Patient reports feeling dizzy while trying to walk around earlier today. She endorses lightheadedness with blurry vision. She denies any chest pain, SOB, palpitations. Differential is broad including seizure (at risk for seizures given prior stroke) vs cardiogenic etiology vs vascular insufficiency (vertebrobasilar dolichoectasia and chronic aortic dissection). Suspicion for seizure is lower. Patient reports feeling lightheaded with wal
[2022-07-30] MEDS: UMECLIDINIUM/VILANTEROL 62.5-25 MCG ELLIPTA 1 PUFF INHALATION (09:06)
[2022-07-30 09:47] VITALS: BP 138/78; PULSE 80
[2022-07-30 09:49] VITALS: BP 125/83; PULSE 93
[2022-07-30 09:51] VITALS: BP 116/80; PULSE 114
[2022-07-30] MEDS: MEMANTINE 10 MG TABLET PO (09:55)
[2022-07-30] MEDS: ATORVASTATIN 10 MG TABLET PO (09:55)
[2022-07-30] MEDS: PARoxetine 20 MG TABLET PO (09:55)
[2022-07-30] MEDS: MECLIZINE HCL 6.25 MG TABLET PO (09:55)
[2022-07-30] MEDS: lamoTRIgine 50 MG TABLET 150 MG PO (09:55)
[2022-07-30] MEDS: allopurinoL 100 MG TABLET PO (09:55)
[2022-07-30] MEDS: carvediloL 12.5 MG TABLET PO (09:55)
[2022-07-30 11:17] LABS: EDCOVIDSCREEN Negative (Negative)
--- NOTE | 2022-07-30 13:19 | PC.NURSE ---
Attempted to call report to [facility]. Call answered by automatic recording, this RN waited on hold for 15 minutes without answer from [facility]. This RN informed patient's son she was unable to reach anyone at [place] and this RN faxed discharge packet to [facility].
== END 2022-07-30 13:16 | DRG 312 ==
LOC: ANHED 12:45 → ANHIMU 14:42 → ANH3MEDSUR 07-28 18:29
PROVIDERS: Nurse Practitioner; Admitting Provider Internal Medicine; Emergency Provider Emergency Medicine; PCP Family Medicine; Visit Provider Student in an Organized Health Care Education/Training Program
DX: I95.1 Orthostatic hypotension (principal); I71.00 Dissection of unspecified site of aorta; F33.1 Major depressive disorder, recurrent, moderate; N17.9 Acute kidney failure, unspecified; F01.50 Vascular dementia, unspecified severity, without behavioral disturbance, psychotic disturbance, mood disturbance, and anxiety; E78.2 Mixed hyperlipidemia; R41.3 Other amnesia; R42 Dizziness and giddiness; G47.33 Obstructive sleep apnea (adult) (pediatric); I12.9 Hypertensive chronic kidney disease with stage 1 through stage 4 chronic kidney disease, or unspecified chronic kidney disease; N18.30 Chronic kidney disease, stage 3 unspecified; F17.210 Nicotine dependence, cigarettes, uncomplicated; J44.9 Chronic obstructive pulmonary disease, unspecified; Z20.822 Contact with and (suspected) exposure to COVID-19; Z86.73 Personal history of transient ischemic attack (TIA), and cerebral infarction without residual deficits; Z95.0 Presence of cardiac pacemaker
CPT/HCPCS: 36415; 70450; 70498; 71045; 80053; 82728; 83735; 84100; 84443; 84484; 85025; 85610; 85730; 87426; 93005; 93306; 94640; 95816; 97161; 97165; 99285; A9270; C9803; G0378; J7030; Q9967

== ENCOUNTER 2022-11-16 12:01 | Emergency (ER) | payer MEDICARE, SELFPAY ==
[2022-11-16] VITALS (25 sets, daily range): BP systolic 114–166; BP diastolic 93–107; PULSE 72–98; RESP 12–22; TEMP 36.4; O2SAT 96–100
--- NOTE | ~2022-11-16 | CT_ITS ---
EXAMINATION: CT brain wo con INDICATION: Headache COMPARISON: 07/27/2022 TECHNIQUE: Standard unenhanced head CT. The dose-length product (DLP) was 605.33 mGy-cm. The mA was a djusted according to patient size. Iterative reconstruction technique was employed. FINDINGS: There is no acute intraparenchymal hemorrhage. No evidence of mass lesion. No evidence of a cute infarction. There are old infarcts of the left frontal lobe and bilateral thalami. There is a st able 11 mm fusiform aneurysm of the distal left internal carotid artery. Vertebrobasilar dolichoectas ia is again noted. The basilar artery measures 9 mm, unchanged. There is mild periventricular and sub cortical hypodensity probably related to small vessel ischemic disease. There is mild prominence of t he sulci and ventricles related to cerebral atrophy. Intracranial calcified cerebral atherosclerosis is noted. There are no extra-axial collections. There is no mass effect or midline shift. The orbits and soft tissues are unremarkable. There is mild mucosal thickening of the paranasal sinuses. IMPRESSION: 1. Areas of prior infarction without acute intracranial abnormality. 2. Age related findings. 3. 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 Reviewed, dictated and finalized at location B. FIREMAN IMPRESSION: 1. Areas of prior infarction without acute intracranial abnormality. 2. Age related findings. 3. 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
--- NOTE | ~2022-11-16 | CT_ITS ---
EXAMINATION: CTA brain carotid DATE: 11/16/2022 14:26 INDICATION: Headache. TECHNIQUE: Computed tomographic angiography (CTA) of the head was performed with 100 mL Omnipaque-350 intravenous contrast. CTA of the neck was performed with intravenous contrast. Automated exposure co ntrol and iterative reconstruction technique were employed. The dose-length product was 1076.90 mGy-c m. Maximum intensity projection and volume rendered 3D-reconstructions were created by the technologi on a separate workstation. COMPARISON: Head CT 11/16/2022, neck CTA 07/27/22 FINDINGS: HEAD CTA: There is an old infarct in left thalamus. There is an old infarct in left frontal lobe. The re is no intracranial hemorrhage, acute infarction, or abnormal intracranial mass lesion. The ventric les are normal in size. The orbits are normal. There is mucosal thickening in the paranasal sinuses. The mastoid air cells are normal. There are changes of left-sided craniotomy. The vertebral arteries are codominant. There is ectasia of basilar artery measuring 9 mm. There is ectasia involving distal basilar artery and the proximal posterior cerebral arteries measuring up to 5 mm. Left posterior cere bral artery is small. There is ectasia of the intracranial internal carotid arteries and anterior and middle cerebral arteries. There is a 12 mm fusiform aneurysm of distal left internal carotid artery. NECK CTA: There is a 6.3 cm fusiform aneurysm of thoracic aorta distal to the left subclavian artery origin. There is no significant stenosis of the vertebral arteries. There is plaque in the proximal i nternal carotid arteries. There is 0% stenosis of the proximal right internal carotid artery relative to normal distal artery lumen diameter (NASCET criteria). There is 0% stenosis of the proximal left internal carotid artery relative to normal distal artery lumen diameter. There is moderate cervical s pondylosis and severe thoracic spondylosis. IMPRESSION: 1. Old infarcts involving the left thalamus and left frontal lobe. 2. 6.3 cm fusiform aneurysm of aortic isthmus and descending thoracic aorta. 3. Dolichoectasia of the intracranial arteries. Small left posterior cerebral artery. 4. 0% stenosis of the proximal internal carotid arteries relative to normal distal artery lumen diame ters (NASCET criteria). Reviewed, dictated and finalized at location A. TING HOUSEKEEPER IMPRESSION: 1. Old infarcts involving the left thalamus and left frontal lobe. 2. 6.3 cm fusiform aneurysm of aortic isthmus and descending thoracic aorta. 3. Dolichoectasia of the intracranial arteries. Small left posterior cerebral a rtery. 4. 0% stenosis of the proximal internal carotid arteries relative to normal dis leida artery lumen diameters (NASCET criteria).
[2022-11-16 13:45] LABS: Basophils Absolute Auto 0.1 K/mm3 (0.0-0.1); Eosinophils Absolute Auto 0.3 K/mm3 (0-0.3); Eosinophils Percent Auto 3.9 % (0-4.4); Hematocrit 40.4 % (37.0-47.0); Hemoglobin 13.1 g/dL (12.0-15.0); Immature Granulocyte Absolute 0.16 K/mm3 (0.00-0.031); Immature Granulocyte Percent A 2.2 % (0-0.5); Lymphocytes Absolute Auto 1.78 K/mm3 (0.9-3.2); Lymphocytes Percent Auto 24.9 % (18.3-44.2); Mean Corpuscular HGB Conc 32.4 g/dl (32-36); Mean Corpuscular Volume 92.7 fl (80-100); Mean Platelet Volume 9.6 fl (7.4-10.4); Monocytes Absolute Auto 0.7 K/mm3 (0.1-0.6); Monocytes Percent Auto 9.2 % (2.6-8.5); Neutrophils Absolute Auto 4.2 K/mm3 (1.3-6.7); Neutrophils Percent Auto 58.8 % (45.5-73.1); Platelet Count Result 233 k/mm3 (150-375); Red Blood Count 4.36 M/mm3 (4.2-5.4); Red Cell Distribution Width 13.5 % (11.5-14.5); White Blood Count 7.2 K/mm3 (4.5-10.0)
[2022-11-16 13:54] LABS: Alanine Aminotransferase 16 U/L (6-35); Albumin Level 4.5 g/dL (3.5-5.1); Alkaline Phosphatase 100 U/L (38-126); Anion Gap 6 mmol/L (8-16); Aspartate Amino Transferase 23 U/L (14-36); Bilirubin,Total 0.5 mg/dL (0.2-1.3); Blood Urea Nitrogen 12 mg/dL (7-17); Calcium 8.4 mg/dL (8.4-10.2); Carbon Dioxide 27 mmol/L (22-30); Chloride 104 mmol/L (98-107); Estimated CRCL calculation 37 ml/min; Estimated Glomerular Filt Rate 48; Glucose 108 mg/dL (65-110); Potassium 3.8 mmol/L (3.4-5.0); Sodium 137 mmol/L (137-145)
[2022-11-16 13:59] LABS: Partial Thromboplastin Time 25.2 SECONDS (22.3-36.8); Prothrombin Time 12.6 Seconds (11.1-14.7)
[2022-11-16 14:20] LABS: Influenza A QL RT-PCR Negative (Negative); Influenza B QL RT-PCR Negative (Negative); RSV RNA, RT-PCR Negative (Negative); SARS-CoV-2 RNA PCR Negative
--- NOTE | 2022-11-16 14:25 | ED.GENADULT ---
HPI - General Adult General Chief complaint: Headache Stated complaint: headache Time Seen by Provider: 11/16/22 13:33 History of Present Illness HPI narrative: 82-year-old female with history of dementia, hypertension, high cholesterol, CVA, and brain aneurysms presented emergency department for evaluation of posterior headache. Patient states that she has had bilateral arm pain for the last few days and has had decreased p.o. intake. Patient states that she has not been hungry for the past few days except for once a day. Patient is requesting food at this time. Patient states she does have some posterior headache that just started this morning. Patient denies any focal numbness or weakness. Patient denies any change in speech or vision. Patient does live at [facility] Related Data Home Medications Medication Instructions Recorded Confirmed allopurinol 100 mg tablet 100 mg PO DAILY 05/20/22 09/11/22 paroxetine HCl 20 mg tablet 20 mg PO DAILY 05/20/22 09/11/22 topiramate 50 mg tablet 50 mg PO HS 05/20/22 09/11/22 carvedilol 12.5 mg tablet 12.5 mg PO BID 07/27/22 09/11/22 Allergies Allergy/AdvReac Type Severity Reaction Status Date / Time prochlorperazine Allergy Intermediate shortness Verified 09/09/22 14:53 of breath propoxyphene Allergy Intermediate Fainting Verified 09/09/22 14:53 Sulfa (Sulfonamide Allergy Intermediate shortness Verified 09/09/22 14:53 Antibiotics) of breath Review of Systems Review of Systems: CONSTITUTIONAL: Denies fever, chills, or sweats. EYES: Denies visual changes, redness, or discharge. ENT: Denies rhinorrhea, congestion, sore throat, or otalgia. CARDIOVASCULAR: Denies chest pain, palpitations, or edema. RESPIRATORY: Denies cough or dyspnea. GASTROINTESTINAL: Denies abdominal pain, nausea, vomiting, or diarrhea. GENITOURINARY: Denies dysuria or hematuria. SKIN: Denies rash or itching. 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 syndrome) Thoracic aortic aneurysm (TAA) Tobacco dependence due to cigarettes Vascular dementia without behavioral disturbance Vitamin D deficiency Surgical History Surgical History History of brain surgery (~1994) Aneurysm repair History of total hysterectomy with bilateral salpingo-oophorectomy (BSO) Hx of cholecystectomy S/P emergency Family History Family History Father Hypertension Family history of cardiovascular disease Mother Heart disease Sibling Drug abuse Alcohol abuse Son Schizophrenia Social History Social History (Updated 09/09/22 @ 14:54 by Liz Villela) Social History: She is currently stain in a rehab facility in [place]. She has 2 sons 1 of which has schizophrenia. 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
[2022-11-16 14:59] LABS: Appearance Urine Clear (Clear); Bilirubin Urine Negative (Negative); Blood Urine Negative (Negative); Color Urine Yellow (Yellow); Glucose Urine UA Negative (Negative); Ketones Urine Negative (Negative); Leukocyte Esterase Ur 1+ LEU/UL (Negative); Nitrate Urine Negative (Negative); Protein Urine Negative (Negative); Specific Grav Ur 1.015 (1.001-1.035); Urobilinogen Urine 0.2 mg/dL (<2.0)
[2022-11-16 15:00] LABS: Creatine Kinase 47 U/L (30-135)
[2022-11-16 15:07] LABS: Bacteria Urine 1+ /hpf; Mucus Urine Few /lpf; RBC Urine 0-2 /hpf (0-2); Squamous Epithelial Cell Urine Few /hpf (Few); WBC Urine 0-3 /hpf
[2022-11-16 15:12] LABS: Add Urine Microscopic? YES
== END 2022-11-16 17:06 ==
PROVIDERS: Emergency Provider Emergency Medicine; PCP Family Medicine
DX: I71.23 Aneurysm of the descending thoracic aorta, without rupture (principal); R51.9 Headache, unspecified; Z20.822 Contact with and (suspected) exposure to COVID-19; F01.50 Vascular dementia, unspecified severity, without behavioral disturbance, psychotic disturbance, mood disturbance, and anxiety; I12.9 Hypertensive chronic kidney disease with stage 1 through stage 4 chronic kidney disease, or unspecified chronic kidney disease; N18.30 Chronic kidney disease, stage 3 unspecified; J44.9 Chronic obstructive pulmonary disease, unspecified; E78.2 Mixed hyperlipidemia; E55.9 Vitamin D deficiency, unspecified; F32.A Depression, unspecified; G47.33 Obstructive sleep apnea (adult) (pediatric); G25.81 Restless legs syndrome; Z86.73 Personal history of transient ischemic attack (TIA), and cerebral infarction without residual deficits; Z87.442 Personal history of urinary calculi; Z95.0 Presence of cardiac pacemaker; Z87.891 Personal history of nicotine dependence; Z90.710 Acquired absence of both cervix and uterus; Z90.722 Acquired absence of ovaries, bilateral; Z90.79 Acquired absence of other genital organ(s)
CPT/HCPCS: 36415; 70450; 70496; 70498; 80053; 81001; 82550; 85025; 85610; 85730; 87637; 96365; 99283; 99284; J0131; Q9967

== ENCOUNTER 2022-11-16 21:12 | Emergency (ER) | payer MEDICARE, SELFPAY ==
[2022-11-16 22:17] VITALS: BP 155/115; PULSE 8; RESP 16; TEMP 36.7; O2SAT 98
[2022-11-17] VITALS (11 sets, daily range): BP systolic 163–190; BP diastolic 103–119; PULSE 72–93; RESP 14–24; O2SAT 94–98
--- NOTE | 2022-11-17 05:19 | ED.GENADULT ---
HPI - General Adult General Chief complaint: Recheck/Abnormal Lab/Rx Stated complaint: ELEVATED BP SEEN EARLIER TODAY Time Seen by Provider: 11/17/22 04:35 History of Present Illness HPI narrative: This is an 82-year-old [facility] [facility] patient sent in for elevated blood pressure. She was seen earlier today and had an extensive workup. She was then deemed safe for discharge. When she was sent back to the [place] [facility] they found her to have an elevated blood pressure and then sent her back to the hospital for re-evaluation. At this time the patient is asymptomatic. Her condition has not changed. She denies chest pain difficulty breathing or neurologic symptoms. Related Data Home Medications Medication Instructions Recorded Confirmed allopurinol 100 mg tablet 100 mg PO DAILY 05/20/22 09/11/22 paroxetine HCl 20 mg tablet 20 mg PO DAILY 05/20/22 09/11/22 topiramate 50 mg tablet 50 mg PO HS 05/20/22 09/11/22 carvedilol 12.5 mg tablet 12.5 mg PO BID 07/27/22 09/11/22 Allergies Allergy/AdvReac Type Severity Reaction Status Date / Time prochlorperazine Allergy Intermediate shortness Verified 09/09/22 14:53 of breath propoxyphene Allergy Intermediate Fainting Verified 09/09/22 14:53 Sulfa (Sulfonamide Allergy Intermediate shortness Verified 09/09/22 14:53 Antibiotics) of breath PMFSH Past Medical History Medical History Acute kidney injury superimposed on chronic kidney disease B12 deficiency Cardiac pacemaker Cerebral aneurysm Is with leakage in 1994 that was repaired with 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 syndrome) Thoracic aortic aneurysm (TAA) Tobacco dependence due to cigarettes Vascular dementia without behavioral disturbance Vitamin D deficiency Surgical History Surgical History History of brain surgery (~1994) Aneurysm repair History of total hysterectomy with bilateral salpingo-oophorectomy (BSO) Hx of cholecystectomy S/P emergency Family History Family History Father Hypertension Family history of cardiovascular disease Mother Heart disease Sibling Drug abuse Alcohol abuse Son Schizophrenia Social History Social History Social History: She is currently stain in a rehab facility in [place]. She has 2 sons 1 of which has schizophrenia. 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 Surrogate decision maker: Abhi Matute (son) Code status: Full code Smoking packs per day: 1 Smoking cigarettes per day: 20.0 Years smoked: 70 Smoking pack-years: 70.00 Smoking status: Former smoker Tobacco type: cigarettes Second hand tobacco smoke exposure: Yes Additional smoking assessment comments: quit 3 weeks ago (Jul 2022) Alcohol intake: never Drinks per week: 1 Substance use: never Substance use type: does not use Lack of Transportation: No Lack of Food: Never True Current Housing: I Have Housing Concerned About Future Housing: No Difficulty Paying Gas/Electric Bills: No Difficulty Paying for Meds: No Currently Unemployed: No Education: Don't Know Difficulty w/ Childcare or Family Care: No Living arrangements: assisted living Occupation/[facility]
[2022-11-17] MEDS: carvediloL 12.5 MG TABLET PO (05:44)
--- NOTE | 2022-11-17 06:30 | PC.NURSE ---
Notified [facility] of patient return. no questions asked at this time. Report given to Evie.
--- NOTE | 2022-11-17 08:50 | PC.NURSE ---
[facility] accepted [facility] assisted return to [facility] eta 10:00 trip #[phone]
--- NOTE | 2022-11-17 08:52 | PC.NURSE ---
regular breakfast tray ordered
== END 2022-11-17 09:30 ==
PROVIDERS: Emergency Provider Emergency Medicine; PCP Family Medicine
DX: I12.9 Hypertensive chronic kidney disease with stage 1 through stage 4 chronic kidney disease, or unspecified chronic kidney disease (principal); N18.30 Chronic kidney disease, stage 3 unspecified; J44.9 Chronic obstructive pulmonary disease, unspecified; F01.50 Vascular dementia, unspecified severity, without behavioral disturbance, psychotic disturbance, mood disturbance, and anxiety; E78.2 Mixed hyperlipidemia; E55.9 Vitamin D deficiency, unspecified; F32.A Depression, unspecified; G47.33 Obstructive sleep apnea (adult) (pediatric); G25.81 Restless legs syndrome; Z86.73 Personal history of transient ischemic attack (TIA), and cerebral infarction without residual deficits; Z87.442 Personal history of urinary calculi; Z95.0 Presence of cardiac pacemaker; Z87.891 Personal history of nicotine dependence; Z90.710 Acquired absence of both cervix and uterus; Z90.722 Acquired absence of ovaries, bilateral; Z90.79 Acquired absence of other genital organ(s)
CPT/HCPCS: 99283; A9270

== ENCOUNTER 2023-01-08 07:53 | Observation (INO) | payer OTHER, SELFPAY ==
[2023-01-08] VITALS (16 sets, daily range): BP systolic 130–212; BP diastolic 80–153; PULSE 76–94; RESP 12–80; TEMP 36.1–36.6; O2SAT 91–98; BMI 32.5
--- NOTE | ~2023-01-08 | CT_ITS ---
EXAMINATION: CT brain wo con DATE: 01/08/2023 08:56 INDICATION: Lethargy, dizziness TECHNIQUE: Computed tomography (CT) of the head was performed without intravenous contrast. The mA wa s adjusted according to patient size. Iterative reconstruction technique was employed. Exam dose: 60 5.33 mGy-cm total exam DLP. COMPARISON: November 16, 2022 CTA brain carotid November 16, 2022 CT brain FINDINGS: There is atherosclerotic calcification and dolichoectasia the vertebrobasilar arteries. Rodriguez ateral carotid siphon internal carotid artery calcifications. There is chronic up to 12 mm aneurysm o f the distal left internal carotid artery. Chronic bilateral thalamic lacunar infarcts, larger on the left. Chronic left frontal cerebrovascular accident. There is nonspecific diminished attenuation of the cerebral white matter, likely due to chronic small vessel ischemic changes. No intracranial mass lesion or hemorrhage or other interval cerebrovascular accident is detected. There is central and cortical cerebral and cerebellar atrophy. No subdural or epidural hematoma. There is patchy opacification of right ethmoid air cells. Paranasal sinuses and mastoid air cells are otherwise unremarkable. No fracture or bone destruction of the cranial vault is detected. Left frontotemporal bone flap is in place. IMPRESSION: Cerebral atherosclerosis, chronic 12 mm aneurysm of the distal left internal carotid art alhaji Chronic ischemic changes of the cerebral white matter Chronic bilateral thalamic lacunar infarcts Old left frontal cerebrovascular accident Central and cortical cerebral and cerebellar atrophy No acute intracranial finding Reviewed, dictated and finalized at Location [facility]. Reviewed, dictated and finalized at location A. IMPRESSION: Cerebral atherosclerosis, chronic 12 mm aneurysm of the distal lef t internal carotid artery Chronic ischemic changes of the cerebral white matter Chronic bilateral thalamic lacunar infarcts Old left frontal cerebrovascular accident Central and cortical cerebral and cerebellar atrophy No acute intracranial finding
--- NOTE | ~2023-01-08 | CT_ITS ---
EXAMINATION: CTA brain carotid DATE: 01/08/2023 10:49 INDICATION: Slurred speech. Cerebrovascular accident. TECHNIQUE: Computed tomographic angiography (CTA) of the head was performed with 100 mL Omnipaque-350 intravenous contrast. CTA of the neck was performed with intravenous contrast. Automated exposure co ntrol and iterative reconstruction technique were employed. The dose-length product was 1194.69 mGy-c m. Maximum intensity projection and volume rendered 3D-reconstructions were created by the [employer] on a separate workstation. COMPARISON: Head CT 01/08/2023, CT 11/16/2022 FINDINGS: HEAD CTA: There is an old infarct involving the left thalamus. There is an old infarct involving the right thalamus. There is an old infarct involving the right caudate nucleus. There is an old infarct involving anterior left frontal lobe. There is no intracranial hemorrhage, acute infarction, or abnor mal intracranial mass lesion. There are scattered areas of low attenuation in the cerebral white dalila er. There is mild mucosal thickening in the paranasal sinuses. The orbits are normal. The mastoid air cells are normal. There are changes of left-sided craniotomy. The vertebral arteries are codominant. Basilar artery is dilated to 9 mm. There is plaque and basilar artery with mild stenosis. There is m ild stenosis of the posterior cerebral arteries. 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 There is mild stenosis of right internal carotid artery. There is a 4 mm s accular aneurysm of left cavernous internal carotid artery on the right. There is a fusiform aneurysm of the supraclinoid internal carotid artery to 6 mm. There is a fusiform aneurysm of distal left int ernal carotid artery to 12 mm. Left anterior communicating artery is normal. Posterior communicating arteries are not identified. NECK CTA: There is a fusiform aneurysm of the aortic arch measuring 6.6 cm distal to the origin of le ft subclavian artery. There are no pathologically enlarged lymph nodes. There is no significant steno sis of the vertebral arteries. There is a 1.5 cm fusiform aneurysm of proximal right subclavian arter y. 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 There is p laque in the proximal internal carotid arteries. There is 0% stenosis of the proximal right internal carotid artery relative to normal distal artery lumen diameter (NASCET criteria). There is 0% stenosi s of the proximal left internal carotid artery relative to normal distal artery lumen diameter. There is moderate cervical spondylosis. IMPRESSION: 1. Old infarcts involving the thalami, right basal ganglia, and left frontal lobe. 2. 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 3. Dolichoectasia of the intracranial arteries, worst at distal left internal carotid artery, which i s dilated to 12 mm. 4. 0% stenosis of the proximal internal carotid arteries relative to normal distal artery lumen diame ters (NASCET criteria). Reviewed, dictated and finalized at location E. IMPRESSION: 1. Old infarcts involving the thalami, right basal ganglia, and left frontal lo be. 2. 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 3. Dolichoectasia of the intracranial arteries, worst at distal left internal c arotid artery, which is dilated to 12 mm. 4. 0% stenosis of the proximal internal carotid arteries relative to normal dis leida artery lumen diameters (NASCET criteria).
--- NOTE | ~2023-01-08 | CT_ITS ---
CT of the Abdomen and Pelvis: Indication: Nausea, vomiting, diarrhea Technique: 2.5 mm axial scans were obtained through the abdomen and pelvis following intravenous adm inistration of 100 cc of Omnipaque 350. Dose reduction technique was used on this scan by utilizing a utomated exposure control and iterative reconstruction technique. The dose-length product (DLP) was 1 369.43 mGy-cm. Findings: Scans through the lung bases-mild bibasilar chronic interstitial change. Cardiomegaly with pacemaker device noted. The liver, spleen, pancreas, adrenals and kidneys are within normal limits. Gallbladder not visualize d. No evidence of aortic aneurysm. No lymphadenopathy. Questionable mild diffuse large bowel wall thickening. No bowel obstruction. No abscess or free air. Images through the pelvis were performed. Urinary bladder unremarkable. No pelvic mass seen. Impression: Questionable mild infectious/inflammatory colitis versus underdistention. Mild bibasilar chronic interstitial pulmonary disease. Reviewed, dictated and finalized at [facility]. Impression: Questionable mild infectious/inflammatory colitis versus underdistention. Mild bibasilar chronic interstitial pulmonary disease.
--- NOTE | 2023-01-08 08:11 | ECG_ITS ---
Measurements Intervals [place] Rate: 75 P: 173 NC: 216 QRS: -19 QRSD: 98 T: 58 QT: 372 QTc: 418 Interpretive Statements ELECTRONIC ATRIAL PACEMAKER NONSPECIFIC T-WAVE ABNORMALITY ABNORMAL ECG COMPARED TO ECG 07/27/2022 09:50:27 NO SIGNIFICANT CHANGES Electronically Signed On 01-08-2023 13:50:54 CDT by Krzysztof Escoto M.D.
--- NOTE | 2023-01-08 09:35 | ED.GENADULT ---
HPI - General Adult General Chief complaint: Neuro Symptoms/Deficit Stated complaint: NEURO Time Seen by Provider: 01/08/23 07:57 History of Present Illness HPI narrative: 82-year-old female presented to the emergency department for slurred speech incontinence and lethargy. Patient is a resident at [facility] and was last normal 830 last night. Per family the patient slept all day yesterday and did not eat dinner which is unusual for her. This morning the family felt the patient did have some slurred speech. Patient is edentulous and is not wearing dentures. Patient was hypertensive at 212/127 on arrival. Patient did not have any of her morning meds. patient states she does have generalized weakness but denies any specific numbness or weakness. Related Data Home Medications Medication Instructions Recorded Confirmed paroxetine HCl 20 mg tablet 20 mg PO DAILY 05/20/22 01/08/23 topiramate 50 mg tablet 50 mg PO HS 05/20/22 11/18/22 quetiapine 25 mg tablet (Seroquel) See Rx Instructions .Route .COMPLEX 01/08/23 umeclidinium 62.5 mcg-vilanterol inhalation 01/08/23 25 mcg/actuation powdr for inhalation (Anoro Ellipta) umeclidinium 62.5 mcg-vilanterol inhalation 01/08/23 25 mcg/actuation powdr for inhalation (Anoro Ellipta) umeclidinium 62.5 mcg-vilanterol inhalation 01/08/23 25 mcg/actuation powdr for inhalation (Anoro Ellipta) Allergies Allergy/AdvReac Type Severity Reaction Status Date / Time prochlorperazine Allergy Intermediate shortness Verified 01/08/23 08:10 of breath propoxyphene Allergy Intermediate Fainting Verified 01/08/23 08:10 Sulfa (Sulfonamide Allergy Intermediate shortness Verified 01/08/23 08:10 Antibiotics) of breath Review of Systems Review of Systems: All systems reviewed & are unremarkable except as noted in HPI and below [facility] Past Medical History Medical History (Updated 01/08/23 @ 20:25 by Sharad Callejas MD) B12 deficiency Cerebral aneurysm Is with leakage in 1994 that was repaired with 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 Chronic kidney disease, stage 3 Chronic obstructive pulmonary disease Depression Essential hypertension Gout History of aortic dissection Kidney stones Major depressive disorder, recurrent, moderate Mixed hyperlipidemia Obstructive sleep apnea Postmenopausal atrophic vaginitis Restless legs syndrome Sick sinus syndrome Thoracic aortic aneurysm (TAA) Tobacco dependence due to cigarettes Vascular dementia without behavioral disturbance Vitamin D deficiency Surgical History Surgical History (Updated 01/08/23 @ 14:08 by Sue Caruso PA-C) History of cerebral aneurysm repair (1994) History of cholecystectomy History of emergency section History of permanent cardiac pacemaker placement History of total hysterectomy with bilateral salpingo-oophorectomy (BSO) Family History Family History Father Hypertension Family history of cardiovascular disease Mother Heart disease Sibling Drug abuse Alcohol abuse Son Schizophrenia Social History Social History (Updated 01/08/23 @ 14:12 by Sue Caruso PA-C) Social History: Surrogate decision maker: Abhi Villanueva, son. Code status: Full code. Smoking packs per day: 1 Smoking cigarettes per day: 20.0 Years smoked: 70 Smoking pack-years: 70.00 Smoking status: Former smoker Tobacco type: cigarettes Second hand tobacco smoke exposure: Yes Additional smoking assessment comments: Quit in July 2022. Alcohol intake: never Drinks per week: 1 Substance use: never Substance use type: does not use Lack of Transportation: No Lack of Food: Never True Current Housing: I Have Housing Concerned About Future Housing:
[2023-01-08] MEDS: hydrALAZINE HCL 20 MG/ML VIAL 10 MG IV PUSH ×2 (09:37→11:55)
[2023-01-08 09:41] LABS: Basophils Percent Auto 0.4 % (0.2-1.2); Eosinophils Absolute Auto 0.1 K/mm3 (0-0.3); Eosinophils Percent Auto 0.8 % (0-4.4); Hematocrit 44.2 % (37.0-47.0); Hemoglobin 14.3 g/dL (12.0-15.0); Immature Granulocyte Absolute 0.08 K/mm3 (0.00-0.031); Immature Granulocyte Percent A 1.1 % (0-0.5); Lymphocytes Absolute Auto 1.05 K/mm3 (0.9-3.2); Lymphocytes Percent Auto 14.4 % (18.3-44.2); Mean Corpuscular HGB Conc 32.4 g/dl (32-36); Mean Corpuscular Hemoglobin 30.8 pg (26-34); Mean Corpuscular Volume 95.1 fl (80-100); Mean Platelet Volume 9.3 fl (7.4-10.4); Monocytes Absolute Auto 0.4 K/mm3 (0.1-0.6); Monocytes Percent Auto 5.5 % (2.6-8.5); Neutrophils Absolute Auto 5.7 K/mm3 (1.3-6.7); Neutrophils Percent Auto 77.8 % (45.5-73.1); Platelet Count Result 184 k/mm3 (150-375); Red Blood Count 4.65 M/mm3 (4.2-5.4); Red Cell Distribution Width 14.2 % (11.5-14.5); White Blood Count 7.3 K/mm3 (4.5-10.0)
[2023-01-08 09:52] LABS: Alanine Aminotransferase 16 U/L (6-35); Albumin Level 4.7 g/dL (3.5-5.1); Alkaline Phosphatase 107 U/L (38-126); Anion Gap 6 mmol/L (8-16); Aspartate Amino Transferase 23 U/L (14-36); Bilirubin,Total 0.9 mg/dL (0.2-1.3); Blood Urea Nitrogen 15 mg/dL (7-17); Calcium 9.1 mg/dL (8.4-10.2); Carbon Dioxide 28 mmol/L (22-30); Chloride 106 mmol/L (98-107); Estimated CRCL calculation 44 ml/min; Estimated Glomerular Filt Rate 53; Glucose 127 mg/dL (65-110); Potassium 4.3 mmol/L (3.4-5.0); Prothrombin Time 12.8 Seconds (11.1-14.7); Sodium 140 mmol/L (137-145)
[2023-01-08 09:53] LABS: Partial Thromboplastin Time 23.6 SECONDS (22.3-36.8)
[2023-01-08] MEDS: ONDANSETRON INJ 4 MG/2 ML VIAL IV PUSH (12:05)
[2023-01-08] MEDS: carvediloL 25 MG TABLET PO (13:08)
--- NOTE | 2023-01-08 13:30 | ADMGEN ---
This patient, Daylin Chery, was admitted to [facility] Room 322-01 at 1300. Patient/family oriented to hospital policies and general routines including ID bracelet, bed and alarms, visiting hours, pain management, procedures, bathroom and other care routines, personal items, smoking policy, room service/diet, and visiting hours. Information on how to activate the Rapid Response Team has been discussed. Patient/Family are encouraged to report perceived risks to care and to ask questions if they do not understand what they are told or what they should do.
--- NOTE | 2023-01-08 14:00 | PM.IMHP ---
H&P: HPI History of Present Illness Date/Time: 01/08/23 14:00 Chief Complaint: Slurred speech and lethargy. Narrative: This is an 82-year-old female smoker with history of stroke, intracerebral aneurysm, dementia, hypertension, sick sinus syndrome status post cardiac pacemaker implantation, chronic kidney disease, chronic obstructive pulmonary disease, obstructive sleep apnea, and other comorbidities who presented to the emergency department via EMS from [facility] for evaluation of slurred speech and lethargy. The following history is obtained from the patient, her family members (with the patient's permission), and via a review of her electronic medical records. She slept most of the day yesterday and did not eat dinner which is quite unusual for her. This morning family members noticed that her speech was slurred and she was brought in for evaluation. In regards to her neurologic status, she was reportedly last seen normal at about 20:30 last evening. The patient reports mild difficulty speaking but she also mentions that she is having difficulties swallowing and that is the region she gave for not eating yesterday or today. She has mild dysuria and reportedly had urinary incontinence earlier today. She denies vertigo, visual changes, facial droop, focal weakness, and paresthesias. She also denies fever, chills, sweats, cold and flu symptoms, nausea, vomiting, and diarrhea. Blood pressure was 212/127 on arrival to the emergency department. She was given her a.m. dose of carvedilol and a couple of doses of IV hydralazine and her blood pressure has improved greatly. Her remaining vital signs were stable. CMP and CBC were relatively unremarkable. Brain CT showed no acute findings and a CT of the head and neck showed evidence of old strokes, 0 % stenosis of the proximal internal carotid arteries, dolichoectasia of the intracranial arteries common at 6.6 fusiform aneurysm of the aortic arch distal to the origin of the left subclavian artery. Patient reports that she is followed by a vascular surgeon in [place] regarding her aneurysms. At the time my evaluation she has no specific complaints. Review of Systems Review of Systems: Twelve systems were reviewed and are negative except for as per HPI. 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 Chronic kidney disease, stage 3 Chronic obstructive pulmonary disease Depression Essential hypertension Gout History of aortic dissection Kidney stones Major depressive disorder, recurrent, moderate Mixed hyperlipidemia Obstructive sleep apnea Postmenopausal atrophic vaginitis Restless legs syndrome Sick sinus syndrome Thoracic aortic aneurysm (TAA) Tobacco dependence due to cigarettes Vascular dementia without behavioral disturbance Vitamin D deficiency Surgical History Surgical History (Updated 01/08/23 @ 22:54 by Sue Caruso PA-C) History of cerebral aneurysm repair (1994) History of cholecystectomy History of craniotomy History of emergency section History of permanent cardiac pacemaker placement History of total hysterectomy with bilateral salpingo-oophorectomy (BSO) Family History Family History Father Hypertension Family history of cardiovascular disease Mother Heart disease Sibling Drug abuse Alcohol abuse Son Schizophrenia Social History Social History Social History: Surrogate decision maker: Abhi Villanueva, son. Code status: Full code. Smoking packs per day: 1 Smoking cigarettes per day: 20.0 Years smoked: 7
[2023-01-09] VITALS (12 sets, daily range): BP systolic 116–148; BP diastolic 77–102; PULSE 75–102; RESP 16–18; TEMP 35.8–36.6; O2SAT 92–97
[2023-01-09] MEDS: ACETAMINOPHEN 325 MG TABLET 650 MG PO (00:02)
[2023-01-09] MEDS: MEMANTINE 10 MG TABLET PO ×3 (00:08→17:04)
[2023-01-09] MEDS: lamoTRIgine 100 MG TABLET PO ×3 (00:08→17:04)
[2023-01-09] MEDS: carvediloL 25 MG TABLET PO ×3 (00:08→21:01)
[2023-01-09] MEDS: lamoTRIgine 50 MG TABLET PO ×3 (00:10→17:04)
--- NOTE | 2023-01-09 04:39 | PC.NURSE ---
Pt very EKUK no hearing aids.This nurse removed mask -see if pt can read lips- unsuccessful. Spoke extremely loud, close to pt with little to no success of communication with pt. Neuro unchanged throughout shift. Tylenol x1 pain... No teeth, no glasses no hearing aids. Yells/ talks in sleep. Tolerated sips water, snack.... SCD's applied Plan for echo today. Daughter of pt called - gave update. Pt in bed all shift. Bed alarm on , call light in reach.
[2023-01-09 07:19] LABS: Hematocrit 41.5 % (37.0-47.0); Hemoglobin 12.9 g/dL (12.0-15.0); Mean Corpuscular HGB Conc 31.1 g/dl (32-36); Mean Corpuscular Hemoglobin 29.9 pg (26-34); Mean Corpuscular Volume 96.1 fl (80-100); Mean Platelet Volume 9.6 fl (7.4-10.4); Platelet Count Result 197 k/mm3 (150-375); Red Blood Count 4.32 M/mm3 (4.2-5.4); White Blood Count 6.9 K/mm3 (4.5-10.0)
[2023-01-09 07:39] LABS: LDL Cholesterol Direct 93 mg/dL
[2023-01-09 07:45] LABS: Anion Gap 7 mmol/L (8-16); Blood Urea Nitrogen 20 mg/dL (7-17); Calcium 8.5 mg/dL (8.4-10.2); Carbon Dioxide 24 mmol/L (22-30); Chloride 106 mmol/L (98-107); Cholesterol 189 mg/dL (0-200); Estimated CRCL calculation 41 ml/min; Estimated Glomerular Filt Rate 48; Glucose 108 mg/dL (65-110); HDL Direct 38 mg/dL; Magnesium 2.4 mg/dL (1.6-2.3); Potassium 3.7 mmol/L (3.4-5.0); Sodium 137 mmol/L (137-145); Triglycerides 263 mg/dL (<150)
[2023-01-09 08:29] LABS: Thyroid Stimulating Hormone Reflex 0.699 uIU/mL (0.465-4.68)
[2023-01-09] MEDS: allopurinoL 100 MG TABLET PO (08:47)
[2023-01-09] MEDS: PARoxetine 20 MG TABLET PO (08:47)
[2023-01-09] MEDS: ATORVASTATIN 10 MG TABLET PO (08:47)
--- NOTE | 2023-01-09 10:00 | P.PNIM_ITS ---
Progress Note: A&P Assessment and Plan (1) Slurred speech: Code(s): R47.81 - Slurred speech Status: Acute Assessment and Plan: * Presented with complaints of slurred speech * ST ordered to eval and treat * CTA does not indicate any new findings * MRI unable to be obtained due to pacemaker * Neuro checks * Seems resolved * Neuro consulted thank you for your help (2) Hypertensive urgency: Code(s): I16.0 - Hypertensive urgency Status: Acute Assessment and Plan: * BP in ED noted to be 212/127 upon arrival * Currently stable at 138/77 * Blood pressures improved greatly when she was given her home dose of carvedilol. * require 2 doses of IV hydralazine in the ED * Continue antihypertensives * Trend BP * Adjust therapy as indicated (3) Aneurysm of aortic arch: Code(s): I71.22 - Aneurysm of the aortic arch, without rupture Status: Acute Assessment and Plan: * In 11/2022 was 6.3 * Current CTA found 6.6cm * Followed by vascular at [facility] * According to family opted out of surgery * Defer to outpatient follow up (4) Chronic obstructive pulmonary disease: Code(s): J44.9 - Chronic obstructive pulmonary disease, unspecified Status: Acute Assessment and Plan: * No evidence of acute exacerbation * Continue maintenance inhalers. (5) Dizziness: Code(s): R42 - Dizziness and giddiness Status: Acute Assessment and Plan: * Mostly with sitting and standing * Meclizine ordered * Orthostatic BP ordered * Seems chronic as this was the case which she received a pacemaker for * Continue to trend * Adjust therapy as indicated Time Spent With Patient Time: 58 minutes, assisted getting patient in chair Time with patient: Greater than 35 minutes Subjective Date/time seen: 01/09/23 10:00 Interval history: 01/09/23 1000 Patient is lying in bed. Patient is very very very hard of hearing. She does not have any slurred speech this morning she did state that she was having echoing in her head at that everything was echoing herself and my voice along with the TV. She was eating and drinking and does ADLs pretty okay on her own. CTA from November and CTA from yesterday do not appear any different at this time. She was able to get the chair however was sitting and standing she stated that she was very dizzy. She also stated that she felt like she was going to vomit. She currently denies any chest pain, shortness a breath, nausea, vomiting, diarrhea or constipation. Was able to get her into the chair pretty okay. She seems to be pretty stable on her feet. 01/08/23? 14:00 This is an 82-year-old female smoker with history of stroke, intracerebral aneurysm, dementia, hypertension, sick sinus syndrome status post cardiac pacemaker implantation, chronic kidney disease, chronic obstructive pulmonary disease, obstructive sleep apnea, and other comorbidities who presented to the emergency department via EMS from [facility] for evaluation of slurred speech and lethargy. The following history is obtained from the patient, her family members (with the patient's permission), and via a review of her electronic medical records. She slept most of the day yesterday and did not eat dinner which is quite unusual for her. This morning family members noticed that her speech was slurred and she was brought i
--- NOTE | 2023-01-09 10:00 | PM.IMPN ---
Progress Note: A&P Assessment and Plan (1) Slurred speech: Code(s): R47.81 - Slurred speech Status: Acute Assessment and Plan: Presented with complaints of slurred speech ST ordered to eval and treat CTA does not indicate any new findings MRI unable to be obtained due to pacemaker Neuro checks Seems resolved Neuro consulted thank you for your help (2) Hypertensive urgency: Code(s): I16.0 - Hypertensive urgency Status: Acute Assessment and Plan: BP in ED noted to be 212/127 upon arrival Currently stable at 138/77 Blood pressures improved greatly when she was given her home dose of carvedilol. require 2 doses of IV hydralazine in the ED Continue antihypertensives Trend BP Adjust therapy as indicated (3) Aneurysm of aortic arch: Code(s): I71.22 - Aneurysm of the aortic arch, without rupture Status: Acute Assessment and Plan: In 11/2022 was 6.3 Current CTA found 6.6cm Followed by vascular at [place] According to family opted out of surgery Defer to outpatient follow up (4) Chronic obstructive pulmonary disease: Code(s): J44.9 - Chronic obstructive pulmonary disease, unspecified Status: Acute Assessment and Plan: No evidence of acute exacerbation Continue maintenance inhalers. (5) Dizziness: Code(s): R42 - Dizziness and giddiness Status: Acute Assessment and Plan: Mostly with sitting and standing Meclizine ordered Orthostatic BP ordered Seems chronic as this was the case which she received a pacemaker for Continue to trend Adjust therapy as indicated Time Spent With Patient Time: 58 minutes, assisted getting patient in chair Time with patient: Greater than 35 minutes Subjective Date/time seen: 01/09/23 10:00 Interval history: 01/09/23 1000 Patient is lying in bed. Patient is very very very hard of hearing. She does not have any slurred speech this morning she did state that she was having echoing in her head at that everything was echoing herself and my voice along with the TV. She was eating and drinking and does ADLs pretty okay on her own. CTA from November and CTA from yesterday do not appear any different at this time. She was able to get the chair however was sitting and standing she stated that she was very dizzy. She also stated that she felt like she was going to vomit. She currently denies any chest pain, shortness a breath, nausea, vomiting, diarrhea or constipation. Was able to get her into the chair pretty okay. She seems to be pretty stable on her feet. 01/08/23? 14:00 This is an 82-year-old female smoker with history of stroke, intracerebral aneurysm, dementia, hypertension, sick sinus syndrome status post cardiac pacemaker implantation, chronic kidney disease, chronic obstructive pulmonary disease, obstructive sleep apnea, and other comorbidities who presented to the emergency department via EMS from [facility] for evaluation of slurred speech and lethargy. The following history is obtained from the patient, her family members (with the patient's permission), and via a review of her electronic medical records. She slept most of the day yesterday and did not eat dinner which is quite unusual for her. This morning family members noticed that her speech was slurred and she was brought in for evaluation. In regards to her neurologic status, she was reportedly last seen normal at about 20:30 last evening. The patient reports mild difficulty speaking but she also mentions that she is having difficulties swallowing and that is the region she gave for not eating yesterday or today. She has mild dysuria and reportedly had urinary incontinence earlier today. She denies vertigo, visual changes, facial droop, focal weakness, and paresthesias. She also denies fever, chills, sweats, cold and flu symptoms, naus
[2023-01-09] MEDS: ONDANSETRON INJ 4 MG/2 ML VIAL IV PUSH (10:41)
[2023-01-09] MEDS: MECLIZINE HCL 25 MG TABLET PO (10:41)
--- NOTE | 2023-01-09 12:29 | PCSTNOTE ---
Please refer to the Bedside Swallow Evaluation in the EMR. Please note, silent aspiration cannot be ruled out at bedside.
--- NOTE | 2023-01-09 13:24 | PC.NURSE ---
pt. left for for CT at 13:20 via stretcher. IV saline locked
--- NOTE | 2023-01-09 13:26 | PC.NURSE ---
Reglan not administered, pt. nausea subsided and she did not feel as though she needed.
--- NOTE | 2023-01-09 13:27 | WPDNEURCNPN ---
Assessment and Plan Assessment and plan (1) Hypertensive urgency: Code(s): I16.0 - Hypertensive urgency Status: Acute (2) Slurred speech: Code(s): R47.81 - Slurred speech Status: Acute (3) History of cerebrovascular accident: Code(s): Z86.73 - Personal history of transient ischemic attack (TIA), and cerebral infarction without residual deficits Status: Acute Plan Daylin Chery is a 82 year old female with a history of prior stroke, intracerebral aneurysm, dementia, hypertension, sick sinus syndrome s/p cardiac pacemaker, CKD, COPD, JUAN C presenting due to slurred speech and lethargy. Patient was quite hypertensive on presentation so could be hypertensive emergency related. Also considering stroke/TIA. Unfortunately due to pacemaker, MRI brain cannot be obtained during this admission. - Start daily aspirin 81mg - LDL is elevated -- increase atorvastatin to 20mg daily (goal <70) - MRI brain as outpatient at a facility that is pacemaker compatible. Consult date: 01/10/23 HPI: Daylin Chery is a 82 year old female with a history of prior stroke, intracerebral aneurysm, dementia, hypertension, sick sinus syndrome s/p cardiac pacemaker, CKD, COPD, JUAN C presenting due to slurred speech and lethargy. On day prior to presentation, patient slept most of the day and did not have much of an appetite. The following morning, family members noted that her speech was slurred so she was brought in for evaluation to [facility]. The patient reported mild difficulty with speaking as well as swallowing. When she presented to [facility] ED her blood pressure was 212/127. She was given PRN dose of hydralazine and her home dose of carvedilol which did bring down her blood pressure. CT head showed no acute findings, but did show old bilateral thalamic infarcts, old left frontal infarct as well as central and cortical cerebral and cerebellar atrophy. 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 Patient reports that she is followed by a vascular surgeon for these aneurysms. She takes Atorvastatin 10mg but no blood thinners. LDL was 93 from this admission. Her echocardiogram was unrevealing. Review of Systems Constitutional: Constitutional: Reports no additional constitutional complaints Eyes: Eyes: Reports no additional eye complaints ENT: Comments: hearing loss Cardiovascular: Cardiovascular: Reports no additional cardiovascular complaints Respiratory: Respiratory: Reports no additional respiratory complaints Gastrointestinal: Gastrointestinal: Reports no additional gastrointestinal complaints Genitourinary: Genitourinary: Reports no additional female genitourinary complaints Musculoskeletal: Musculoskeletal: Reports no additional musculoskeletal complaints Integumentary/Breasts: Skin/Breast: Reports system reviewed and no additional complaints, except as docu Neurologic: Reports as per HPI Psychiatric: Psychiatric: Reports anxiety and Reports depression [facility] Past Medical History Medical History B12 deficiency Cerebral aneurysm Is with leakage in 1994 that was repaired with 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 Chronic kidney disease, stage 3 Chronic obstructive pulmonary disease Depression Essential hypertension Gout History of aortic dissection Kidney stones Major depressive disorder, recurrent, moderate Mixed hyperlipidemia Obstructive sleep apnea Postmenopausal atrophic vaginitis Restless legs syndrome Sick sinus syndrome Thoracic aortic aneurysm (TAA) Tobacco dependence due to cigarettes Vascular dementia wit
[2023-01-09] MEDS: PERFLUTREN LIPID MICROSPHERES 1.5 ML VIAL DILUTED TO 10 ML TOTAL VOLUME IV PUSH (14:35)
[2023-01-09] MEDS: LACTATED RINGERS 1,000 ML 999 ML IV CONT (16:09)
--- NOTE | 2023-01-09 22:58 | ECHO_ITS ---
Patient Info Name: Daylin Chery Age: 82 years : 1940 Gender: Female Ht: 66 in Wt: 201 lbs BSA: 2.09 m2 HR: 83 bpm BP: 138 / 77 mmHg Technical Quality: Fair Exam Date: 01/09/2023 1:55 PM Exam Location: [facility] Patient Status: Outpatient Admit Date: 01/08/2023 Staff Ordering Physician: Sue Caruso PA-C [employer]eling Machine Operator: Aurea Goodman RDCS Attending Provider: Onel Weinstein MD Referring Physician: Zuly BROOKS; Exam Type: CA echo dop bubble study w con Study Info Indications - STROKE SYMPTOMS Complete two-dimentional, color flow and Doppler transthoracic echocardiogram is performed with agitated saline and with contrast to opacify the left ventricle and to improve the delineation of the left ventricle endocardial borders. Contrast/Agitated Saline Contrast/Ag. Saline: Agitated Saline Amount: 20.00 ml Contrast/Ag. Saline: Definity Amount: 3.00 ml Administered By: Aurea Goodman RDCS Existing IV Access: Yes Summary 1. Definity contrast administered improved wall motion interpretation. 2. Left ventricular chamber dimension is normal. 3. Left ventricular systolic function is normal, estimated at 60-65%. 4. There is mild concentric increased left ventricular wall thickness. 5. The left ventricular diastolic function is grade I diastolic dysfunction. 6. E/e' 7 is not elevated. 7. Linear artifact in right ventricle suggestive of catheter(s), pacemaker lead(s), or ICD lead(s). 8. Linear artifact in the right atrium suggestive of catheter(s), pacemaker lead(s), or ICD lead(s). 9. There is mild aortic valve sclerosis. 10. No pulmonary hypertension, estimated pulmonary arterial systolic pressure is 24 mmHg. 11. There is trivial pericardial effusion. Left Ventricle E/e' 7 is not elevated. Definity contrast administered improved wall motion interpretation. Left ventricular chamber dimension is normal. Left ventricular systolic function is normal, estimated at 60-65%. There is mild concentric increased left ventricular wall thickness. The left ventricular diastolic function is grade I diastolic dysfunction. Right Ventricle Linear artifact in right ventricle suggestive of catheter(s), pacemaker lead(s), or ICD lead(s). Right ventricular chamber dimension is normal. Right ventricular systolic function is normal. Left Atria Left atrial chamber dimension is normal. Right Atria Linear artifact in the right atrium suggestive of catheter(s), pacemaker lead(s), or ICD lead(s). Right atrial chamber dimension is normal. Aortic Valve The aortic valve is trileaflet. There is mild aortic valve sclerosis. There is no aortic valve stenosis. There is no aortic valve regurgitation. Pulmonic Valve There is no pulmonic regurgitation. Mitral Valve There is no mitral valve stenosis. There is no mitral valve regurgitation. Tricuspid Valve There is no tricuspid valve regurgitation. No pulmonary hypertension, estimated pulmonary arterial systolic pressure is 24 mmHg. Pericardium/Pleural There is trivial pericardial effusion. Inferior Vena Cava Normal inferior vena cava with >50% collapse upon inspiration consistent with normal right atrial pressure, 5 mmHg. Aorta The aortic root size at the sinus of Valsalva is normal. Left Ventricular Outflow Tract Name
[2023-01-10] VITALS (17 sets, daily range): BP systolic 103–177; BP diastolic 63–114; PULSE 72–105; RESP 18–30; TEMP 36.2–36.7; O2SAT 93–97
[2023-01-10 07:33] LABS: Basophils Percent Auto 0.3 % (0.2-1.2); Eosinophils Absolute Auto 0.1 K/mm3 (0-0.3); Eosinophils Percent Auto 1.3 % (0-4.4); Hematocrit 38.3 % (37.0-47.0); Hemoglobin 12.2 g/dL (12.0-15.0); Immature Granulocyte Absolute 0.12 K/mm3 (0.00-0.031); Immature Granulocyte Percent A 1.3 % (0-0.5); Lymphocytes Percent Auto 16.6 % (18.3-44.2); Mean Corpuscular HGB Conc 31.9 g/dl (32-36); Mean Corpuscular Hemoglobin 30.1 pg (26-34); Mean Corpuscular Volume 94.6 fl (80-100); Mean Platelet Volume 9.5 fl (7.4-10.4); Monocytes Absolute Auto 0.7 K/mm3 (0.1-0.6); Monocytes Percent Auto 7.3 % (2.6-8.5); Neutrophils Absolute Auto 6.6 K/mm3 (1.3-6.7); Neutrophils Percent Auto 73.2 % (45.5-73.1); Platelet Count Result 193 k/mm3 (150-375); Red Blood Count 4.05 M/mm3 (4.2-5.4); Red Cell Distribution Width 14.1 % (11.5-14.5)
[2023-01-10 07:44] LABS: Alanine Aminotransferase 16 U/L (6-35); Alkaline Phosphatase 74 U/L (38-126); Anion Gap 9 mmol/L (8-16); Aspartate Amino Transferase 20 U/L (14-36); Bilirubin,Total 0.6 mg/dL (0.2-1.3); Blood Urea Nitrogen 19 mg/dL (7-17); CRP 0.9 mg/dL (<1.0); Calcium 8.4 mg/dL (8.4-10.2); Carbon Dioxide 23 mmol/L (22-30); Chloride 105 mmol/L (98-107); Estimated CRCL calculation 41 ml/min; Estimated Glomerular Filt Rate 48; Glucose 144 mg/dL (65-110); Magnesium 2.1 mg/dL (1.6-2.3); Potassium 3.2 mmol/L (3.4-5.0); Sodium 137 mmol/L (137-145)
--- NOTE | 2023-01-10 08:30 | PM.IMPN ---
Progress Note: A&P Assessment and Plan (1) Syncopal episodes: Code(s): R55 - Syncope and collapse Status: Acute Assessment and Plan: Recurrent syncopal episodes Orthostatic blood pressures do note some othrostatis, however, she came in very hypertensive Reduce dose of carvedilol by half Will need to keep close eye on BP Instructed patient to change positions slowly and to return to previous position if feeling dizzy. (2) Slurred speech: Code(s): R47.81 - Slurred speech Status: Acute Assessment and Plan: Presented with complaints of slurred speech ST recommends easy to chew diet CTA does not indicate any new findings MRI unable to be obtained due to pacemaker Neuro checks Seems resolved Neuro consulted thank you for your help (3) Hypertensive urgency: Code(s): I16.0 - Hypertensive urgency Status: Acute Assessment and Plan: BP in ED noted to be 212/127 upon arrival Currently stable at 124/76 Blood pressures improved greatly when she was given her home dose of carvedilol. require 2 doses of IV hydralazine in the ED Continue antihypertensives Trend BP Adjust therapy as indicated (4) Aneurysm of aortic arch: Code(s): I71.22 - Aneurysm of the aortic arch, without rupture Status: Acute Assessment and Plan: In 11/2022 was 6.3 Current CTA found 6.6cm Followed by vascular at [place] According to family opted out of surgery Defer to outpatient follow up (5) Chronic obstructive pulmonary disease: Code(s): J44.9 - Chronic obstructive pulmonary disease, unspecified Status: Acute Assessment and Plan: No evidence of acute exacerbation Continue maintenance inhalers. (6) Dizziness: Code(s): R42 - Dizziness and giddiness Status: Acute Assessment and Plan: Mostly with sitting and standing Meclizine ordered Orthostatic BP does not exhibit hypotension when standing, but does show some when going from laying to sitting Seems chronic as this was the case which she received a pacemaker for Continue to trend Adjust therapy as indicated Time Spent With Patient Time: 53 minutes 28 minutes spent getting patient into chair an working with the patient Time with patient: Greater than 35 minutes Subjective Date/time seen: 01/10/23 08:30 Interval history: 01/10/23829 Patient was lying in bed eating. She stated that she feels a lot better today however she is very dizzy. She stated that she is dizzy while lying as well. Did have some episodes of vomiting, diarrhea, yesterday after getting patient into the chair. Currently she seems to be appropriate. Will give her a dose of meclizine to see if that helps with the dizziness. She denies any chest pain, shortness a breath, nausea, vomiting, diarrhea constipation. She is eating and doing okay with that. 01/09/23 1000 Patient is lying in bed. Patient is very very very hard of hearing. She does not have any slurred speech this morning she did state that she was having echoing in her head at that everything was echoing herself and my voice along with the TV. She was eating and drinking and does ADLs pretty okay on her own. CTA from November and CTA from yesterday do not appear any different at this time. She was able to get the chair however was sitting and standing she stated that she was very dizzy. She also stated that she felt like she was going to vomit. She currently denies any chest pain, shortness a breath, nausea, vomiting, diarrhea or constipation. Was able to get her into the chair pretty okay. She seems to be pretty stable on her feet. 01/08/23? 14:00 This is an 82-year-old female smoker with history of stroke, intracerebral aneurysm, dementia, hypertension, sick sinus syndrome status post cardiac pacemaker implantation, chronic kidn
--- NOTE | 2023-01-10 08:30 | P.PNIM_ITS ---
Progress Note: A&P Assessment and Plan (1) Syncopal episodes: Code(s): R55 - Syncope and collapse Status: Acute Assessment and Plan: * Recurrent syncopal episodes * Orthostatic blood pressures do note some othrostatis, however, she came in very hypertensive * Reduce dose of carvedilol by half * Will need to keep close eye on BP * Instructed patient to change positions slowly and to return to previous position if feeling dizzy. (2) Slurred speech: Code(s): R47.81 - Slurred speech Status: Acute Assessment and Plan: * Presented with complaints of slurred speech * ST recommends easy to chew diet * CTA does not indicate any new findings * MRI unable to be obtained due to pacemaker * Neuro checks * Seems resolved * Neuro consulted thank you for your help (3) Hypertensive urgency: Code(s): I16.0 - Hypertensive urgency Status: Acute Assessment and Plan: * BP in ED noted to be 212/127 upon arrival * Currently stable at 124/76 * Blood pressures improved greatly when she was given her home dose of carvedilol. * require 2 doses of IV hydralazine in the ED * Continue antihypertensives * Trend BP * Adjust therapy as indicated (4) Aneurysm of aortic arch: Code(s): I71.22 - Aneurysm of the aortic arch, without rupture Status: Acute Assessment and Plan: * In 11/2022 was 6.3 * Current CTA found 6.6cm * Followed by vascular at [place] * According to family opted out of surgery * Defer to outpatient follow up (5) Chronic obstructive pulmonary disease: Code(s): J44.9 - Chronic obstructive pulmonary disease, unspecified Status: Acute Assessment and Plan: * No evidence of acute exacerbation * Continue maintenance inhalers. (6) Dizziness: Code(s): R42 - Dizziness and giddiness Status: Acute Assessment and Plan: * Mostly with sitting and standing * Meclizine ordered * Orthostatic BP does not exhibit hypotension when standing, but does show some when going from laying to sitting * Seems chronic as this was the case which she received a pacemaker for * Continue to trend * Adjust therapy as indicated Time Spent With Patient Time: 53 minutes 28 minutes spent getting patient into chair an working with the patient Time with patient: Greater than 35 minutes Subjective Date/time seen: 01/10/23 08:30 Interval history: 01/10/23 0830 Patient was lying in bed eating. She stated that she feels a lot better today however she is very dizzy. She stated that she is dizzy while lying as well. Did have some episodes of vomiting, diarrhea, yesterday after getting patient into the chair. Currently she seems to be appropriate. Will give her a dose of meclizine to see if that helps with the dizziness. She denies any chest pain, shortness a breath, nausea, vomiting, diarrhea constipation. She is eating and doing okay with that. 01/09/23 1000 Patient is lying in bed. Patient is very very very hard of hearing. She does not have any slurred speech this morning she did state that she was having echoing in her head at that everything was echoing herself and my voice along with the TV. She was eating and drinking and does ADLs pretty okay on her own. CTA from November and CTA from yesterday do not appear an
[2023-01-10] MEDS: allopurinoL 100 MG TABLET PO (08:59)
[2023-01-10] MEDS: carvediloL 25 MG TABLET PO ×2 (09:00→21:51)
[2023-01-10] MEDS: lamoTRIgine 50 MG TABLET PO ×2 (09:00→17:37)
[2023-01-10] MEDS: ENOXAPARIN 40 MG/0.4 ML SYRINGE SUB-Q (09:00)
[2023-01-10] MEDS: ATORVASTATIN 10 MG TABLET PO (09:00)
[2023-01-10] MEDS: lamoTRIgine 100 MG TABLET PO ×2 (09:01→17:36)
[2023-01-10] MEDS: MEMANTINE 10 MG TABLET PO ×2 (09:01→17:37)
[2023-01-10] MEDS: MECLIZINE HCL 25 MG TABLET PO (09:01)
[2023-01-10] MEDS: PARoxetine 20 MG TABLET PO (09:01)
[2023-01-10] MEDS: ASPIRIN 81 MG CHEWABLE TABLET PO (15:07)
[2023-01-10] MEDS: MELATONIN 5 MG TABLET PO (22:44)
[2023-01-11] VITALS (9 sets, daily range): BP systolic 109–130; BP diastolic 77–88; PULSE 72–93; RESP 18; TEMP 36.3–36.4; O2SAT 95–96
[2023-01-11] MEDS: carvediloL 25 MG TABLET PO (08:44)
[2023-01-11] MEDS: ATORVASTATIN 20 MG TABLET PO (08:44)
[2023-01-11] MEDS: ASPIRIN 81 MG CHEWABLE TABLET PO (08:44)
[2023-01-11] MEDS: lamoTRIgine 50 MG TABLET PO (08:44)
[2023-01-11] MEDS: lamoTRIgine 100 MG TABLET PO (08:44)
[2023-01-11] MEDS: allopurinoL 100 MG TABLET PO (08:44)
[2023-01-11] MEDS: PARoxetine 20 MG TABLET PO (08:44)
[2023-01-11] MEDS: MEMANTINE 10 MG TABLET PO (08:44)
[2023-01-11] MEDS: ENOXAPARIN 40 MG/0.4 ML SYRINGE SUB-Q (08:45)
--- NOTE | 2023-01-11 11:30 | PM.DS ---
DS: Admitting Diagnosis Discharge Date 01/11/23 1130 Admitting Diagnosis Slurred speech, hypertensive emergency, and recurrent syncope DS: Discharge Diagnosis Discharge Diagnosis (1) Syncopal episodes: Code(s): R55 - Syncope and collapse Status: Acute Assessment and Plan: Recurrent syncopal episodes Orthostatic blood pressures do note some othrostatis, however, she came in very hypertensive Reduce dose of carvedilol by half Will need to keep close eye on BP Instructed patient to change positions slowly and to return to previous position if feeling dizzy. (2) Slurred speech: Code(s): R47.81 - Slurred speech Status: Acute Assessment and Plan: Presented with complaints of slurred speech ST recommends easy to chew diet CTA does not indicate any new findings MRI unable to be obtained due to pacemaker Neuro checks Seems resolved Neuro consulted thank you for your help (3) Hypertensive urgency: Code(s): I16.0 - Hypertensive urgency Status: Acute Assessment and Plan: BP in ED noted to be 212/127 upon arrival Currently stable at 124/76 Blood pressures improved greatly when she was given her home dose of carvedilol. require 2 doses of IV hydralazine in the ED Continue antihypertensives Trend BP Adjust therapy as indicated (4) Aneurysm of aortic arch: Code(s): I71.22 - Aneurysm of the aortic arch, without rupture Status: Acute Assessment and Plan: In 11/2022 was 6.3 Current CTA found 6.6cm Followed by vascular at [place] According to family opted out of surgery Defer to outpatient follow up (5) Chronic obstructive pulmonary disease: Code(s): J44.9 - Chronic obstructive pulmonary disease, unspecified Status: Acute Assessment and Plan: No evidence of acute exacerbation Continue maintenance inhalers. (6) Dizziness: Code(s): R42 - Dizziness and giddiness Status: Acute Assessment and Plan: Mostly with sitting and standing Meclizine ordered Orthostatic BP does not exhibit hypotension when standing, but does show some when going from laying to sitting Seems chronic as this was the case which she received a pacemaker for Continue to trend Adjust therapy as indicated DS: Summary Hospital Course Hospital Course: patient is 82-year-old female with a past medical history of stroke, aneurysm, dementia, hypertension who presented to the ED from [facility] for evaluation of slurred speech and lethargy. Upon arrival to the patient did have a CT of the head along with a CT of the head however there is no new findings. MRI was unable to be obtained due to pacemaker. Neuro checks have been performed along with the speech therapy evaluation. Neuro was consulted no adjustments were made. blood pressure was noted to be 212/127 patient was given her carvedilol and blood pressure did returned to stable level of 124/76. Patient then was experiencing some dizziness orthostatic blood pressures were taken and did show slight hypotension. Carvedilol was cut in half to 12.5. Chronic anemia was noted with slight growth. 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 Patient does have outpatient follow-up. Patient was having recurrent syncope throughout her stay. It has been controlled the meclizine and slow position change. Patient does have a chronic dizziness and vertigo problem. Ears were checked seem to not have any indication for the dizziness. Labs and vital signs are stable and remained stable throughout the entire stay. Patient currently is stable for discharge and will be discharged to rehab for further strengthening training. Status at Discharge Functional status at discharge: uses cane/walker Overall status at discharge: patient is
--- NOTE | 2023-01-11 11:30 | P.DS_ITS ---
DS: Admitting Diagnosis Discharge Date 01/11/23 1130 Admitting Diagnosis Slurred speech, hypertensive emergency, and recurrent syncope DS: Discharge Diagnosis Discharge Diagnosis (1) Syncopal episodes: Code(s): R55 - Syncope and collapse Status: Acute Assessment and Plan: * Recurrent syncopal episodes * Orthostatic blood pressures do note some othrostatis, however, she came in very hypertensive * Reduce dose of carvedilol by half * Will need to keep close eye on BP * Instructed patient to change positions slowly and to return to previous position if feeling dizzy. (2) Slurred speech: Code(s): R47.81 - Slurred speech Status: Acute Assessment and Plan: * Presented with complaints of slurred speech * ST recommends easy to chew diet * CTA does not indicate any new findings * MRI unable to be obtained due to pacemaker * Neuro checks * Seems resolved * Neuro consulted thank you for your help (3) Hypertensive urgency: Code(s): I16.0 - Hypertensive urgency Status: Acute Assessment and Plan: * BP in ED noted to be 212/127 upon arrival * Currently stable at 124/76 * Blood pressures improved greatly when she was given her home dose of carvedilol. * require 2 doses of IV hydralazine in the ED * Continue antihypertensives * Trend BP * Adjust therapy as indicated (4) Aneurysm of aortic arch: Code(s): I71.22 - Aneurysm of the aortic arch, without rupture Status: Acute Assessment and Plan: * In 11/2022 was 6.3 * Current CTA found 6.6cm * Followed by vascular at [place] * According to family opted out of surgery * Defer to outpatient follow up (5) Chronic obstructive pulmonary disease: Code(s): J44.9 - Chronic obstructive pulmonary disease, unspecified Status: Acute Assessment and Plan: * No evidence of acute exacerbation * Continue maintenance inhalers. (6) Dizziness: Code(s): R42 - Dizziness and giddiness Status: Acute Assessment and Plan: * Mostly with sitting and standing * Meclizine ordered * Orthostatic BP does not exhibit hypotension when standing, but does show some when going from laying to sitting * Seems chronic as this was the case which she received a pacemaker for * Continue to trend * Adjust therapy as indicated DS: Summary Hospital Course Hospital Course: patient is 82-year-old female with a past medical history of stroke, aneurysm, dementia, hypertension who presented to the ED from [facility] for evaluation of slurred speech and lethargy. Upon arrival to the patient did have a CT of the head along with a CT of the head however there is no new findings. MRI was unable to be obtained due to pacemaker. Neuro checks have been performed along with the speech therapy evaluation. Neuro was consulted no adjustments were made. blood pressure was noted to be 212/127 patient was given her carvedilol and blood pressure did returned to stable level of 124/76. Patient then was experiencing some dizziness orthostatic blood pressures were taken and did show slight hypotension. Carvedilol was cut in half to 12.5. Chronic anemia was noted with slight growth. 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 Patient does have outpatient
== END 2023-01-11 15:30 ==
LOC: ANHED 11:33 → ANH3MEDSUR 01-09 07:28
PROVIDERS: Nurse Practitioner; Physician Assistant; Admitting Provider Chiropractor; Emergency Provider Emergency Medicine; PCP Family Medicine; Visit Provider Family Medicine
DX: R55 Syncope and collapse (principal); R47.81 Slurred speech; I16.0 Hypertensive urgency; I71.22 Aneurysm of the aortic arch, without rupture; R93.0 Abnormal findings on diagnostic imaging of skull and head, not elsewhere classified; J44.9 Chronic obstructive pulmonary disease, unspecified; R42 Dizziness and giddiness; R32 Unspecified urinary incontinence; R53.83 Other fatigue; E53.8 Deficiency of other specified B group vitamins; I12.9 Hypertensive chronic kidney disease with stage 1 through stage 4 chronic kidney disease, or unspecified chronic kidney disease; N18.30 Chronic kidney disease, stage 3 unspecified; I67.2 Cerebral atherosclerosis; F32.9 Major depressive disorder, single episode, unspecified; G25.81 Restless legs syndrome; I11.9 Hypertensive heart disease without heart failure; I70.0 Atherosclerosis of aorta; J84.9 Interstitial pulmonary disease, unspecified; E55.9 Vitamin D deficiency, unspecified; Z95.0 Presence of cardiac pacemaker; Z77.22 Contact with and (suspected) exposure to environmental tobacco smoke (acute) (chronic); R94.31 Abnormal electrocardiogram [ECG] [EKG]; F03.90 Unspecified dementia, unspecified severity, without behavioral disturbance, psychotic disturbance, mood disturbance, and anxiety; Z87.891 Personal history of nicotine dependence; Z86.73 Personal history of transient ischemic attack (TIA), and cerebral infarction without residual deficits; Z79.51 Long term (current) use of inhaled steroids; Z79.899 Other long term (current) drug therapy
CPT/HCPCS: 36415; 70450; 70496; 70498; 74177; 80048; 80053; 80061; 83735; 84443; 85025; 85027; 85610; 85730; 86140; 92522; 92610; 93005; 96372; 96374; 96375; 96376; 97110; 97161; 97165; 97530; 97535; 99285; A9270; C8929; G0378; J0360; J1650; J2405; J7120; Q9957; Q9967

== ENCOUNTER 2023-02-03 11:25 | Outpatient (CLI) | payer OTHER, SELFPAY ==
--- NOTE | ~2023-02-03 | XR_ITS ---
Clinical Indication: Shortness of breath AP and lateral views of the chest: Comparison: 07/27/2022 Findings: The lungs are clear, without evidence of focal consolidation or pleural effusion. Cardiome diastinal silhouette is stable, with pacemaker device. Bones and soft tissues are unremarkable. Impression: Clear lungs. Pacemaker device. Reviewed, dictated and finalized at location . Impression: Clear lungs. Pacemaker device.
== END 2023-02-03 11:26 | disposition home or self-care (01) ==
PROVIDERS: PCP Family Medicine; Visit Provider Physician Assistant
DX: R06.02 Shortness of breath (principal); Z95.0 Presence of cardiac pacemaker
CPT/HCPCS: 71046

== ENCOUNTER 2023-02-26 10:19 | Emergency (ER) | payer OTHER, SELFPAY ==
[2023-02-26] VITALS (9 sets, daily range): BP systolic 149–185; BP diastolic 87–130; PULSE 41–97; RESP 16–22; TEMP 36.8; O2SAT 94–99
--- NOTE | ~2023-02-26 | XR_ITS ---
EXAMINATION: XR chest 1V portable DATE: 02/26/2023 12:11 INDICATION: Hypertension. TECHNIQUE: A single frontal view of the chest was obtained. COMPARISON: Chest 2 views 02/03/2023, CT abdomen and pelvis 01/09/2023, neck CTA 07/27/2022 FINDINGS: There is mild atelectasis in the lower lung zones. No pleural effusion or pneumothorax. The heart size is normal. There is a left chest wall pacer with leads in the right atrium and right vent ricle. Again seen is a fusiform aneurysm of aortic arch. IMPRESSION: 1. Mild atelectasis in the lower lung zones. 2. Fusiform aneurysm of aortic arch again seen. Reviewed, dictated and finalized at location A.
--- NOTE | 2023-02-26 10:22 | ECG_ITS ---
Measurements Intervals [place] Rate: 85 P: 199 MD: 192 QRS: -14 QRSD: 93 T: 39 QT: 365 QTc: 435 Interpretive Statements ELECTRONIC ATRIAL PACEMAKER BORDERLINE R WAVE PROGRESSION, ANTERIOR LEADS NONSPECIFIC T-WAVE ABNORMALITY- DIFFUSE LEADS BASELINE ARTIFACT- I, II, III, AVR, AVL, AVF, V1-2 BORDERLINE ECG COMPARED TO ECG 01/08/2023 08:15:07 NO SIGNIFICANT CHANGES Electronically Signed On 02-26-2023 13:47:54 CDT by Marko Orozco D.O.
--- NOTE | 2023-02-26 11:41 | ED.GENADULT ---
HPI - General Adult General Chief complaint: Recheck/Abnormal Lab/Rx Stated complaint: HTN Time Seen by Provider: 02/26/23 11:35 Source: patient and EMS Mode of arrival: EMS Limitations: no limitations History of Present Illness HPI narrative: 83 years old white female came from long term because of elevated blood pressure. Patient is asymptomatic. She denies any headache, fever, chills, nausea, vomiting, chest pain, shortness of breath, back pain or abdominal pain. Related Data Home Medications Medication Instructions Recorded Confirmed paroxetine HCl 20 mg tablet 20 mg PO DAILY 05/20/22 02/03/23 Allergies Allergy/AdvReac Type Severity Reaction Status Date / Time prochlorperazine Allergy Intermediate shortness Verified 02/26/23 10:23 of breath propoxyphene Allergy Intermediate Fainting Verified 02/26/23 10:23 Sulfa (Sulfonamide Allergy Intermediate shortness Verified 02/26/23 10:23 Antibiotics) of breath Review of Systems Review of Systems: All systems reviewed & are unremarkable except as noted in HPI and below PMFSH Past Medical History Medical History B12 deficiency Cerebral aneurysm Is with leakage in 1994 that was repaired with 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 Chronic kidney disease, stage 3 Chronic obstructive pulmonary disease Depression Essential hypertension Gout History of aortic dissection Kidney stones Major depressive disorder, recurrent, moderate Mixed hyperlipidemia Obstructive sleep apnea Postmenopausal atrophic vaginitis Restless legs syndrome Sick sinus syndrome Thoracic aortic aneurysm (TAA) Tobacco dependence due to cigarettes Vascular dementia without behavioral disturbance Vitamin D deficiency Surgical History Surgical History History of cerebral aneurysm repair (1994) History of cholecystectomy History of craniotomy History of emergency section History of permanent cardiac pacemaker placement History of total hysterectomy with bilateral salpingo-oophorectomy (BSO) Family History Family History Father Hypertension Family history of cardiovascular disease Mother Heart disease Sibling Drug abuse Alcohol abuse Son Schizophrenia Social History Social History Social History: Surrogate decision maker: Abhi Villanueva, son. Code status: Full code. Smoking packs per day: 1 Smoking cigarettes per day: 20.0 Years smoked: 70 Smoking pack-years: 70.00 Smoking status: Former smoker Tobacco type: cigarettes Second hand tobacco smoke exposure: Yes Additional smoking assessment comments: Quit in July 2022. Alcohol intake: never Drinks per week: 1 Substance use: never Substance use type: does not use Lack of Transportation: No Lack of Food: Never True Current Housing: I Have Housing Concerned About Future Housing: No Difficulty Paying Gas/Electric Bills: No Difficulty Paying for Meds: No Currently Unemployed: No Education: Don't Know Difficulty w/ Childcare or Family Care: No Living arrangements: assisted living Additional living arrangements comments: [facility]. She has 2 sons, 1 suffers from schizophrenia. 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 Spiritual care concerns: No Exam Narrative: General appearance: Well-developed, well-nourished Skin: Normal color Head: Normocephalic, nontraumatic Eyes: Clear conjunctiva ENT: Oropharynx normal, ears normal, nose normal Neck: Supple, nontender Chest and respiratory: Airway patent, no respiratory distress, no accessory muscle use
[2023-02-26] MEDS: LABETALOL HCL INJ 100 MG/20 ML VIAL 20 MG IV PUSH (11:52)
[2023-02-26 12:09] LABS: Basophils Absolute Auto 0.1 K/mm3 (0.0-0.1); Basophils Percent Auto 0.7 % (0.2-1.2); Eosinophils Absolute Auto 0.2 K/mm3 (0-0.3); Eosinophils Percent Auto 2.4 % (0-4.4); Hematocrit 37.9 % (37.0-47.0); Hemoglobin 12.3 g/dL (12.0-15.0); Immature Granulocyte Absolute 0.12 K/mm3 (0.00-0.031); Immature Granulocyte Percent A 1.6 % (0-0.5); Lymphocytes Absolute Auto 1.79 K/mm3 (0.9-3.2); Lymphocytes Percent Auto 23.6 % (18.3-44.2); Mean Corpuscular HGB Conc 32.5 g/dl (32-36); Mean Corpuscular Hemoglobin 30.3 pg (26-34); Mean Corpuscular Volume 93.3 fl (80-100); Mean Platelet Volume 8.9 fl (7.4-10.4); Monocytes Absolute Auto 0.7 K/mm3 (0.1-0.6); Monocytes Percent Auto 8.8 % (2.6-8.5); Neutrophils Absolute Auto 4.8 K/mm3 (1.3-6.7); Neutrophils Percent Auto 62.9 % (45.5-73.1); Platelet Count Result 208 k/mm3 (150-375); Red Blood Count 4.06 M/mm3 (4.2-5.4); Red Cell Distribution Width 13.6 % (11.5-14.5); White Blood Count 7.6 K/mm3 (4.5-10.0)
[2023-02-26 12:23] LABS: Alanine Aminotransferase 17 U/L (6-35); Albumin Level 4.2 g/dL (3.5-5.1); Alkaline Phosphatase 103 U/L (38-126); Anion Gap 6 mmol/L (8-16); Aspartate Amino Transferase 22 U/L (14-36); Bilirubin,Total 0.5 mg/dL (0.2-1.3); Blood Urea Nitrogen 15 mg/dL (7-17); Calcium 8.6 mg/dL (8.4-10.2); Carbon Dioxide 31 mmol/L (22-30); Chloride 102 mmol/L (98-107); Estimated CRCL calculation 40 ml/min; Estimated Glomerular Filt Rate 53; Glucose 124 mg/dL (65-110); Potassium 3.6 mmol/L (3.4-5.0); Sodium 139 mmol/L (137-145)
== END 2023-02-26 16:06 ==
PROVIDERS: Emergency Provider Emergency Medicine; PCP Family Medicine
DX: I12.9 Hypertensive chronic kidney disease with stage 1 through stage 4 chronic kidney disease, or unspecified chronic kidney disease (principal); N18.30 Chronic kidney disease, stage 3 unspecified; F01.50 Vascular dementia, unspecified severity, without behavioral disturbance, psychotic disturbance, mood disturbance, and anxiety; J44.9 Chronic obstructive pulmonary disease, unspecified; I71.22 Aneurysm of the aortic arch, without rupture; E78.2 Mixed hyperlipidemia; G47.33 Obstructive sleep apnea (adult) (pediatric); G25.81 Restless legs syndrome; E53.8 Deficiency of other specified B group vitamins; E55.9 Vitamin D deficiency, unspecified; F33.9 Major depressive disorder, recurrent, unspecified; Z95.0 Presence of cardiac pacemaker; Z86.73 Personal history of transient ischemic attack (TIA), and cerebral infarction without residual deficits; Z87.442 Personal history of urinary calculi; Z87.891 Personal history of nicotine dependence; Z90.49 Acquired absence of other specified parts of digestive tract; Z90.710 Acquired absence of both cervix and uterus; Z90.722 Acquired absence of ovaries, bilateral; Z90.79 Acquired absence of other genital organ(s); R94.31 Abnormal electrocardiogram [ECG] [EKG]
CPT/HCPCS: 36415; 71045; 80053; 85025; 93005; 96374; 99284

== ENCOUNTER 2023-03-11 09:52 | Emergency (ER) | payer OTHER, SELFPAY ==
[2023-03-11] VITALS (13 sets, daily range): BP systolic 130–171; BP diastolic 94–118; PULSE 74–90; RESP 10–19; TEMP 36.3; O2SAT 94–98
--- NOTE | ~2023-03-11 | XR_ITS ---
XR chest 1V portable 03/11/2023 10:24 Indication: Shortness of breath Procedure: AP portable chest Comparison: Comparison to multiple prior studies sequentially, with oldest reviewed study dated 05/20. Findings: Moderate cardiomegaly. Pacemaker leads are in expected position. No focal air space disease , pulmonary edema, pleural effusion or suspected pneumothorax. No acute osseous abnormality. Impression: 1: No acute cardiopulmonary disease. 2: Cardiomegaly. Reviewed, dictated and finalized at location A. Impression: 1: No acute cardiopulmonary disease. 2: Cardiomegaly.
--- NOTE | ~2023-03-11 | CT_ITS ---
EXAMINATION: CT brain wo con DATE: 03/11/2023 11:09 INDICATION: Hypertension TECHNIQUE: Computed tomography (CT) of the head was performed without intravenous contrast. The dose- length product was 605.33 mGy-cm. Automated exposure control and iterative reconstruction technique w ere employed. COMPARISON: CTA dated 01/08/2023 FINDINGS: Generalized atrophy. There are scattered mild periventricular and subcortical white matter changes, most likely related to small vessel ischemic disease (microangiopathy). Dolichoectasia of th e intracranial arteries reidentified, most prominent in the left middle and anterior cerebral arterie s no acute intracranial hemorrhage, infarction, mass or mass effect. There is a chronic left thalamic infarction. There is a chronic right thalamic infarction. There is a chronic left frontal lobe infar ction with encephalomalacia. No acute infarction, hemorrhage or mass. IMPRESSION: 1. No acute intracranial abnormality. 2: Chronic left frontal lobe and bilateral thalamic infarctions. 3: Dolichoectasia of the intracranial arteries. 4: Chronic age-related findings. Reviewed, dictated and finalized at location A.
--- NOTE | 2023-03-11 10:08 | ECG_ITS ---
Measurements Intervals [place] Rate: 71 P: 180 NV: 199 QRS: -19 QRSD: 86 T: 33 QT: 365 QTc: 397 Interpretive Statements POSSIBLE ELECTRONIC ATRIAL PACEMAKER POOR R-WAVE PROGRESSION COMPARED TO ECG 02/26/2023 10:22:30 NO SIGNIFICANT CHANGES Electronically Signed On 03-11-2023 14:04:16 CDT by Mariah Shaw M.D.
--- NOTE | 2023-03-11 10:13 | ED.GENADULT ---
HPI - General Adult General Chief complaint: Recheck/Abnormal Lab/Rx Stated complaint: htn Time Seen by Provider: 03/11/23 09:55 History of Present Illness HPI narrative: Daylin Chery is an 83 y/o female who presents via EMS from [place] for elevated b/p. Patient was here on 02/26 for the same concern and started on Clonidine 0.1 BID for blood pressure over 160. Patient is asymptomatic with her elevated blood pressure - she denies headache/ vision changes/ chest pain/ shortness of breath. She reports she last took her Clonidine this AM with her breakfast at around 0830. Related Data Home Medications Medication Instructions Recorded Confirmed paroxetine HCl 20 mg tablet 20 mg PO DAILY 05/20/22 02/03/23 Allergies Allergy/AdvReac Type Severity Reaction Status Date / Time prochlorperazine Allergy Intermediate shortness Verified 03/11/23 09:55 of breath propoxyphene Allergy Intermediate Fainting Verified 03/11/23 09:55 Sulfa (Sulfonamide Allergy Intermediate shortness Verified 03/11/23 09:55 Antibiotics) of breath Review of Systems Review of Systems: CONSTITUTIONAL: Denies fever, chills, or sweats. EYES: Denies visual changes, redness, or discharge. ENT: Denies rhinorrhea, congestion, sore throat, or otalgia. CARDIOVASCULAR: Denies chest pain, palpitations, or edema. RESPIRATORY: Denies cough or dyspnea. GASTROINTESTINAL: Denies abdominal pain, nausea, vomiting, or diarrhea. GENITOURINARY: Denies dysuria or hematuria. SKIN: Denies rash or itching. MUSCULOSKELETAL: Denies back pain, joint pain, or myalgia. NEUROLOGIC: Denies headache, numbness, dizziness, or weakness. PSYCHIATRIC: Denies anxiety or depression. 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 Chronic kidney disease, stage 3 Chronic obstructive pulmonary disease Depression Essential hypertension Gout History of aortic dissection Kidney stones Major depressive disorder, recurrent, moderate Mixed hyperlipidemia Obstructive sleep apnea Postmenopausal atrophic vaginitis Restless legs syndrome Sick sinus syndrome Thoracic aortic aneurysm (TAA) Tobacco dependence due to cigarettes Vascular dementia without behavioral disturbance Vitamin D deficiency Surgical History Surgical History History of cerebral aneurysm repair (1994) History of cholecystectomy History of craniotomy History of emergency section History of permanent cardiac pacemaker placement History of total hysterectomy with bilateral salpingo-oophorectomy (BSO) Family History Family History Father Hypertension Family history of cardiovascular disease Mother Heart disease Sibling Drug abuse Alcohol abuse Son Schizophrenia Social History Social History Social History: Surrogate decision maker: Abhi Villanueva, lamberto. Code status: Full code. Smoking packs per day: 1 Smoking cigarettes per day: 20.0 Years smoked: 70 Smoking pack-years: 70.00 Smoking status: Former smoker Tobacco type: cigarettes Second hand tobacco smoke exposure: Yes Additional smoking assessment comments: Quit in July 2022. Alcohol intake: never Drinks per week: 1 Substance use: never Substance use type: does not use Lack of Transportation: No Lack of Food: Never True Current Housing: I Have Housing Concerned About Future Housing: No Difficulty Paying Gas/Electric Bills: No Difficulty Paying for Meds: No Currently Unemployed: No Education: Don't Know Difficulty w/ Childcare or Family
[2023-03-11 10:54] LABS: Basophils Percent Auto 0.6 % (0.2-1.2); Eosinophils Absolute Auto 0.2 K/mm3 (0-0.3); Eosinophils Percent Auto 2.6 % (0-4.4); Hematocrit 38.8 % (37.0-47.0); Hemoglobin 12.5 g/dL (12.0-15.0); Immature Granulocyte Percent A 1.4 % (0-0.5); Lymphocytes Absolute Auto 1.67 K/mm3 (0.9-3.2); Lymphocytes Percent Auto 23.8 % (18.3-44.2); Mean Corpuscular HGB Conc 32.2 g/dl (32-36); Mean Corpuscular Hemoglobin 30.3 pg (26-34); Mean Corpuscular Volume 93.9 fl (80-100); Mean Platelet Volume 9.5 fl (7.4-10.4); Monocytes Absolute Auto 0.7 K/mm3 (0.1-0.6); Monocytes Percent Auto 10.1 % (2.6-8.5); Neutrophils Absolute Auto 4.3 K/mm3 (1.3-6.7); Neutrophils Percent Auto 61.5 % (45.5-73.1); Platelet Count Result 224 k/mm3 (150-375); Red Blood Count 4.13 M/mm3 (4.2-5.4); Red Cell Distribution Width 13.8 % (11.5-14.5)
[2023-03-11 11:05] LABS: Alanine Aminotransferase 18 U/L (6-35); Albumin Level 4.2 g/dL (3.5-5.1); Alkaline Phosphatase 78 U/L (38-126); Anion Gap 7 mmol/L (8-16); Aspartate Amino Transferase 29 U/L (14-36); Bilirubin,Total 0.6 mg/dL (0.2-1.3); Blood Urea Nitrogen 20 mg/dL (7-17); Calcium 8.6 mg/dL (8.4-10.2); Carbon Dioxide 29 mmol/L (22-30); Chloride 103 mmol/L (98-107); Estimated CRCL calculation 32 ml/min; Estimated Glomerular Filt Rate 53; Glucose 107 mg/dL (65-110); Potassium 4.4 mmol/L (3.4-5.0); Sodium 139 mmol/L (137-145)
[2023-03-11 11:16] LABS: Troponin I < 0.012 ng/mL (0.000-0.034)
[2023-03-11 11:51] LABS: Appearance Urine Cloudy (Clear); Bacteria Urine 4+ /hpf; Bilirubin Urine Negative (Negative); Blood Urine Negative (Negative); Color Urine Yellow (Yellow); Glucose Urine UA Negative (Negative); Ketones Urine Trace mg/dL (Negative); Leukocyte Esterase Ur 2+ LEU/UL (Negative); Need Manual Microscopic Reviewed; Nitrate Urine Positive (Negative); Non Pathogenic Casts 0-2; Protein Urine 1+ mg/dL (Negative); Specific Grav Ur 1.017 (1.001-1.035); Squamous Epithelial Cell Urine Occasional /hpf (Few); WBC Urine 21-50 /hpf
[2023-03-11 11:52] LABS: Add Urine Microscopic? YES
--- NOTE | 2023-03-11 12:27 | PC.NURSE ---
RN calls [facility] and advises staff of pt status and that she is ready to return. [facility] staff states they do not have a return service, and to either call her son, Abhi Villanueva, ambulance, or cab. 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
== END 2023-03-11 13:00 ==
PROVIDERS: Emergency Provider Nurse Practitioner Family; PCP Family Medicine
DX: N39.0 Urinary tract infection, site not specified (principal); I12.9 Hypertensive chronic kidney disease with stage 1 through stage 4 chronic kidney disease, or unspecified chronic kidney disease; N18.30 Chronic kidney disease, stage 3 unspecified; J44.9 Chronic obstructive pulmonary disease, unspecified; F33.1 Major depressive disorder, recurrent, moderate; E78.2 Mixed hyperlipidemia; G25.81 Restless legs syndrome; F01.50 Vascular dementia, unspecified severity, without behavioral disturbance, psychotic disturbance, mood disturbance, and anxiety; Z86.73 Personal history of transient ischemic attack (TIA), and cerebral infarction without residual deficits; Z95.0 Presence of cardiac pacemaker; Z87.891 Personal history of nicotine dependence; Z79.82 Long term (current) use of aspirin; Z79.51 Long term (current) use of inhaled steroids
CPT/HCPCS: 36415; 70450; 71045; 80053; 81001; 84484; 85025; 87077; 87086; 87186; 93005; 99284

== ENCOUNTER 2024-05-13 14:19 | Emergency (ER) | payer MEDICARE, SELFPAY ==
--- NOTE | ~2024-05-13 | CT_ITS ---
EXAMINATION: CTA brain carotid DATE: 05/13/2024 21:41 INDICATION: Hx annuerysm, persistent ORELLANA TECHNIQUE: Computed tomographic angiography (CTA) of the head and neck was performed with 100 mL Omni paque-350 intravenous contrast. Automated exposure control and iterative reconstruction technique wer e employed. The dose-length product was 1171.60 mGy-cm. Maximum intensity projection and volume rend ered 3D-reconstructions were created by the technologist on a separate workstation. COMPARISON: 01/08/2023; CT brain 05/13/2024. FINDINGS: CTA HEAD: Old bilateral thalamic, left frontal, and right caudate head infarcts. No large vessel occlusion, hig h flow vascular malformation, nidus or extravasation. Severe dolichoectasia of the intracerebral ranjith javi, most severe in the distal left internal carotid artery maximum transverse diameter measures 13 mm. Moderate focal stenosis in the distal basilar artery. 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 CTA NECK: Aortic arch and proximal great vessels: Normal arch anatomy. 6.5 cm fusiform thoracic aortic aneurysm distal to the origin of the left subclavian artery with intraluminal thrombus. Right common carotid, carotid bifurcation, and internal carotid artery: No plaque.There is 0% stenosi s of the proximal right internal carotid artery relative to normal distal artery lumen diameter (NASC ET criteria). Left common carotid, carotid bifurcation, and internal carotid artery: No plaque.There is 0% stenosis of the proximal left internal carotid artery relative to normal distal artery lumen diameter (NASCET criteria). 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 Vertebral arteries: No significant plaque or stenosis. Vertebral arteries co-dominant. Other findings: Degenerative changes in the cervical spine. IMPRESSION: Stable extensive dolichoectasia of the intracranial arteries. 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 No carotid or vertebral artery occlusion, dissection, or significant stenosis. Stable thoracic aortic aneurysm. Reviewed, dictated and finalized at location K.
--- NOTE | ~2024-05-13 | CT_ITS ---
EXAMINATION: CT brain wo con DATE: 05/13/2024 17:09 INDICATION: Headache TECHNIQUE: Computed tomography (CT) of the head was performed without intravenous contrast. Sagittal and coronal reconstructions were performed. The mA was adjusted according to patient size. Iterative reconstruction technique was employed. The dose-length product was 605.33 mGy-cm. COMPARISON: head CT dated 03/11/[address] angiogram dated FINDINGS: Old postoperative change of prior left temporal craniotomy. Unchanged small region of encephalomalaci a in the anterior left frontal lobe consistent with sequela of old infarct. Additional unchanged smal l old lacunar infarcts at the bilateral basal ganglia and thalami. No acute intracranial hemorrhage, acute infarction or abnormal extra axial fluid collection. There is moderate scattered white matter h ypoattenuation consistent with chronic small vessel ischemic disease. Symmetric prominence of the sul ci and subarachnoid spaces overlying the convexities consistent with moderate age-appropriate diffuse cerebral volume loss. Ventricles are normal and symmetric. No mass/mass effect. Again noted is dolic hoectasia of the central intracranial arteries was performed at the distal left internal carotid ranjith ry. Changes of right intraocular lens replacement. The orbits, paranasal sinuses and mastoid air cell s are normal. IMPRESSION: 1. Old left frontal lobe infarct and old lacunar infarcts at the bilateral basal ganglia and thalami. No acute intracranial process. 2. Age-related changes including moderate diffuse volume loss and moderate scattered white matter hyp oattenuation consistent with chronic small vessel ischemic disease. 3. Dolichoectasia of the central intracranial arteries. Reviewed, dictated and finalized at location A. IMPRESSION: 1. Old left frontal lobe infarct and old lacunar infarcts at the bilateral basa l ganglia and thalami. No acute intracranial process. 2. Age-related changes including moderate diffuse volume loss and moderate scat tered white matter hypoattenuation consistent with chronic small vessel ischemi c disease. 3. Dolichoectasia of the central intracranial arteries.
[2024-05-13 15:08] VITALS: BP 131/90; PULSE 86; RESP 18; TEMP 36.3; O2SAT 96
--- NOTE | 2024-05-13 16:25 | ED.GENADULT ---
HPI - General Adult General Chief complaint: Headache <Jessicaann Tinajero APRN - Last Filed: 05/15/24 16:59> Stated complaint: headache <Jessica Reji Tinajero APRN - Last Filed: 05/15/24 16:59> Time Seen by Provider: 05/13/24 16:30 <Jessica Tinajero APRN - Last Filed: 05/15/24 16:59> Focused HPI: Pt is a 84-year-old female who presents to the ER today with headache at the base of her neck. Her pain started about a month ago. Pt reports her pain started getting worse earlier this week. She thinks her vision has changed with the headache, everything is blurry. Pt denies new weakness, tingling, or numbness. She reports she hasn't been sleeping well and drinks a lot of tea. GENERAL: Well-appearing, well-nourished, and in no acute distress. HEAD: Normocephalic, atraumatic. CHEST: Clear to auscultation. ?No respiratory distress. HEART: Regular rate and rhythm.? NEURO: ?Alert and oriented x3. Neuro checks WNL. Patient screened in triage and initial orders placed.? ?Additional care and disposition to be based upon?diagnostic testing and treatment. <Jessica Tinajero APRN - Last Filed: 05/15/24 16:59> Source: patient <Jessica Mendoza YUNIOR Tinajero - Last Filed: 05/15/24 16:59> Mode of arrival: wheelchair <Jessica Tinajero APRN - Last Filed: 05/15/24 16:59> Limitations: no limitations <Jessica Tinajero APRN - Last Filed: 05/15/24 16:59> History of Present Illness HPI narrative: This is an 84-year-old female with a past medical history including previous CVA, TIA, hypertension, previous cerebral aneurysms requiring intervention in the remote past. Today patient presents to the ED with a complaint of a headache that has been persistent for 1 week. She denies any recent falls or injuries but states that she was falling previously. Presently she is endorsing headache that radiates down the right side of her head down her neck. States that Tylenol does relieve the pain but it returns quickly. States that she has been seen by her neurosurgeon recently and diagnosed with multiple aneurysms. Has an appointment to follow-up in June. Denies any vision changes, nauseousness, vomiting, abdominal pain, back pain. She patient states she is normally wheelchair bound and has difficulty ambulating for several years. No changes in her strength or sensation according to herself. <Javon Lance MD - Last Filed: 05/13/24 22:38> Related Data Home medications: Home Medications Medication Instructions Recorded Confirmed paroxetine HCl 20 mg tablet 20 mg PO DAILY 05/20/22 01/30/24 <Jessica Tinajero, SERICULTURIST - Last Filed: 05/15/24 16:59> Allergies/adverse reactions: Allergies Allergy/AdvReac Type Severity Reaction Status Date / Time prochlorperazine Allergy Intermediate shortness Verified 01/30/24 10:50 of breath propoxyphene Allergy Intermediate Fainting Verified 01/30/24 10:50 Sulfa (Sulfonamide Allergy Intermediate shortness Verified 01/30/24 10:50 Antibiotics) of breath <Jessica Tinajero, SERICULTURIST - Last Filed: 05/15/24 16:59> Review of Systems Review of Systems: As reviewed above in the HPI <Javon Lance MD - Last Filed: 05/13/24 22:38> PMFSH Past Medical History Medical History: Medical History B12 deficiency Cerebral aneurysm Is with leakage in 1994 that was repaired with 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 Chronic kidney disease, stage 3 Chronic obstructive pulmonary disease Depression Essential hypertension Gout History of aortic dissection Kidney stones Major depressive disorder, recurrent, moderate Mixed hyperlipidemia Obstructive sleep apnea Postmenopausal atrophic vaginitis Restless legs syndrome Sick sinus syndrome Thoracic aor
[2024-05-13] MEDS: ACETAMINOPHEN 325 MG TABLET 650 MG PO (19:13)
[2024-05-13 20:40] LABS: Basophils Percent Auto 0.5 % (0.2-1.2); Eosinophils Absolute Auto 0.2 K/mm3 (0-0.3); Eosinophils Percent Auto 2.1 % (0-4.4); Hematocrit 41.9 % (37.0-47.0); Hemoglobin 13.7 g/dL (12.0-15.0); Immature Granulocyte Absolute 0.14 K/mm3 (0.00-0.031); Immature Granulocyte Percent A 1.8 % (0-0.5); Lymphocytes Absolute Auto 1.83 K/mm3 (0.9-3.2); Lymphocytes Percent Auto 23.6 % (18.3-44.2); Mean Corpuscular HGB Conc 32.7 g/dl (32-36); Mean Corpuscular Volume 91.7 fl (80-100); Mean Platelet Volume 9.4 fl (7.4-10.4); Monocytes Absolute Auto 0.6 K/mm3 (0.1-0.6); Monocytes Percent Auto 8.1 % (2.6-8.5); Neutrophils Absolute Auto 4.9 K/mm3 (1.3-6.7); Neutrophils Percent Auto 63.9 % (45.5-73.1); Platelet Count Result 258 k/mm3 (150-375); Red Blood Count 4.57 M/mm3 (4.2-5.4); Red Cell Distribution Width 14.1 % (11.5-14.5); White Blood Count 7.7 K/mm3 (4.5-10.0)
[2024-05-13 20:54] LABS: Anion Gap 10 mmol/L (4-12); Blood Urea Nitrogen 18 mg/dL (7-17); Calcium 9.3 mg/dL (8.4-10.2); Carbon Dioxide 30 mmol/L (22-30); Chloride 98 mmol/L (98-107); Estimated CRCL calculation 34 ml/min; Estimated Glomerular Filt Rate 43; Glucose 109 mg/dL (65-110); Potassium 3.9 mmol/L (3.4-5.0); Sodium 138 mmol/L (137-145)
[2024-05-13 23:06] VITALS: BP 138/88; PULSE 88; RESP 15; O2SAT 94
== END 2024-05-13 23:07 ==
PROVIDERS: Emergency Provider Student in an Organized Health Care Education/Training Program; PCP Family Medicine
DX: R51.9 Headache, unspecified (principal); F01.50 Vascular dementia, unspecified severity, without behavioral disturbance, psychotic disturbance, mood disturbance, and anxiety; I12.9 Hypertensive chronic kidney disease with stage 1 through stage 4 chronic kidney disease, or unspecified chronic kidney disease; N18.30 Chronic kidney disease, stage 3 unspecified; I49.5 Sick sinus syndrome; E78.2 Mixed hyperlipidemia; E53.8 Deficiency of other specified B group vitamins; J44.9 Chronic obstructive pulmonary disease, unspecified; G47.33 Obstructive sleep apnea (adult) (pediatric); G25.81 Restless legs syndrome; F33.9 Major depressive disorder, recurrent, unspecified; Z95.0 Presence of cardiac pacemaker; Z86.73 Personal history of transient ischemic attack (TIA), and cerebral infarction without residual deficits; Z87.891 Personal history of nicotine dependence; Z90.49 Acquired absence of other specified parts of digestive tract; Z90.710 Acquired absence of both cervix and uterus; Z90.79 Acquired absence of other genital organ(s); Z90.722 Acquired absence of ovaries, bilateral; Z79.899 Other long term (current) drug therapy
CPT/HCPCS: 36415; 70450; 70496; 70498; 80048; 85025; 99284; A9270; Q9967

== ENCOUNTER 2024-05-27 13:25 | Outpatient (CLI) | payer MEDICARE, SELFPAY ==
--- NOTE | ~2024-05-27 | CT_ITS ---
EXAMINATION:CT diagnostic chest wo con DATE: 05/27/2024 13:52 INDICATION: Aneurysm of descending thoracic aorta. TECHNIQUE: Computed tomography (CT) of the chest was performed without intravenous contrast. Automate d exposure control and iterative reconstruction technique were employed. The dose-length product (DLP ) was 736.48 mGy-cm. COMPARISON: CT abdomen and pelvis 01/09/2023, neck CTA 01/08/23 FINDINGS: The lungs demonstrate mild atelectasis. There is chronic peripheral septal thickening in th e inferior lungs. A calcified right lung nodule and calcified right hilar lymph nodes are consistent with old granulomatous disease. No pleural effusion. Cardiomegaly is noted. No pericardial effusion. Thoracic aorta measures 3.5 cm at the sinuses of Valsalva, 3.4 cm at the sinotubular junction, 4.0 cm in the mid ascending aorta, 3.9 cm in the aortic isthmus, 7.0 cm in the proximal descending aorta, a nd 3.2 cm in the mid descending aorta. There is a left chest wall pacer with leads in the right atriu m and right ventricle. Calcifications in the liver and spleen are consistent with old granulomatous d isease. There is severe thoracic spondylosis. IMPRESSION: 1. 7.0 cm fusiform aneurysm in the proximal descending aorta, increased from 6.4 cm on 01/04/2023. Reviewed, dictated and finalized at location A. IMPRESSION: 1. 7.0 cm fusiform aneurysm in the proximal descending aorta, increased from 6. 4 cm on 01/04/2023.
== END 2024-05-27 13:26 | disposition home or self-care (01) ==
PROVIDERS: PCP Family Medicine
DX: I71.23 Aneurysm of the descending thoracic aorta, without rupture (principal)
CPT/HCPCS: 71250

== ENCOUNTER 2025-04-16 11:22 | Emergency (ER) | payer OTHER, SELFPAY ==
--- NOTE | ~2025-04-16 | XR_ITS ---
XR ankle RT min 3V Ordering provider: Cm Brown History: . fall, pain medial . Comparison: None. FINDINGS: BONES: No acute fracture or dislocation. Tiny lucency seen in the dome of the talus medially which ma y be degenerative. JOINT SPACES: Normal. SOFT TISSUES: Normal. Calcaneal spur. Ossification of the insertion of the tendo Achilles. IMPRESSION: No acute osseous abnormality of the right ankle. Reviewed, dictated and finalized at location A.
[2025-04-16 11:21] VITALS: BP 119/84; PULSE 82; RESP 16; TEMP 36.7; O2SAT 94
--- OUTSIDE RECORDS SUMMARY | 2025-04-16 12:19 | XMS_ITS | Patient Health Record ---
Author Organization [facility] Address [address] [place] [address] Care Team Providers Care Head Rigger Name Role Phone Sav Lovell Unavailable [phone] Reason For Referral No Information Medications Medication SIG (Take, Route, Frequency, Duration) Notes Start Date End Date Status rOPINIRole HCl 0.5 MG Oral 08/26/2020 Active Allopurinol 100 MG Oral 08/26/2020 Active Topiramate 50 MG Oral 08/26/2020 Ac tive QUEtiapine Fumarate 25 MG Oral 08/26/2020 Active amLODIPine Besylate 5 MG Oral 08/26/2020 Active PARoxetine HCl 20 MG Oral 08/26/2020 Active Memantine HCl 5 MG Oral 08/26/2020 Active Atorvastatin Calcium 10 MG Oral 08/26/2020 Active Immunizations Vaccine Route Administration Date Status Comme nts Novel [id number], preservative free Unknown 08/29/2016 Administered Plan Of Treatment No Information Insurance Providers Payer Name Payer Address Payer Phone Subscriber Number Group Number Insured Name Patient Relationship to Insured Coverage Start Date Coverage End Date [employer] o [address] [place] [phone] [id number] L AIXA BEAR Self - patient is the insured Medical (General) History Surgical History Surgery Date(Month/Year) Removal of gallbladder (13223) Heart surgery Hysterectomy/revise vagina (46756)
--- OUTSIDE RECORDS SUMMARY | 2025-04-16 12:19 | XMS_ITS ---
Author Name Auto Generated, Auto Generated Organization [facility] Address [address] [place] [address] Phone [phone] Care Team Providers Care Engineer Assistant Name Role Phone Jd Whittington Unavailable Functional Status Mental Status Allergies and Intolerances Medications Problems Reason for Referral Past Medical History
--- OUTSIDE RECORDS SUMMARY | 2025-04-16 12:19 | XMS_ITS | Clinical Summary ---
Author Organization [facility] Address [address] [place] [address] Care Team Providers Care Environmental Specialist Name Role Phone Jaelyn Ozuna MD Primary Care Provider + Source Comments [facility],non-owned Affiliates and Associated Physician Practices is amultiple site organization consisting of ambulatory clinics and hospital sitesin [place], [place], [place] and [place]. This disclosure is being madepursuant to the Care Everywhere program and may not contain all information available regarding this patient. Last updated 18.[facility] Allergies Active Allergy Reactions Criticality Noted Date Comments Codeine 02/10/2014 Compazine Palpitations 06/24/2010 Darvon Dizziness 06/24/2010 Enalapril Other Low 11/26/2015 makes me feel like I'm having a heart attack Sulfa Drugs Numbness 06/24/2010 Medications * This document contains information received from the source organization and may not represent a complete record from that organization. * Be aware that medications may not be up to date on this document. Alwaysverify current medications with the patient. lamoTRIgine (LAMICTAL) 150 MG tabletIndicatio ns:unsure of dose Take 1 (one) tablet by mouth 2 times daily Reasons: unsure of dose 06/24/2010 Active allopurinol (ZYLOPRIM) 100 MG tabletIndicatio ns:unsure of dose Take 1 (one) tablet by mouth once daily Reasons: unsure of dose Active topiramate (TOPAMAX) 100 MG tabletIndicatio ns:unsure of dose Take 50 mg by mouth at bedtime Reasons: unsure of dose Active QUEtiapine (SEROquel) 25 MG tablet 11/27/2022 Active memantine (Namenda) 5 MG tablet Take 1 (one) tablet by mouth 2 times daily 11/22/2021 Active atorvastatin (Lipitor) 10 MG tablet 11/27/2022 Active PARoxetine (Paxil) 20 MG tablet 11/27/2022 Active meclizine (Antivert) 25 MG tablet 10/06/2022 Active Anoro Ellipta 62.5-25 MCG/ACT inhaler 11/15/2022 Active carvedilol (Coreg) 25 MG tablet 11/27/2022 Active carvedilol (Coreg) 12.5 MG tablet 12/22/2023 Active Active Problems Problem Noted Date Diagnosed Date Thoracic aortic aneurysm without rupture 023 Social History Tobacco Use Types Packs/Day Years Used Date Smoking Tobacco: Every Day Cigarettes Last attempted to quit: 01/20/2014 Smokeless Tobacco: Never Tobacco Cessation:Ready to Q uit: No; Counseling Given: No Alcohol Use Standard Drinks/Week Comments No 0 (1 standard drink = 0.6 oz pur e alcohol) Comments Unknown Sex and Gender Information Value Date Recorded Sex Assigned at Not on file Legal Sex 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 Gender Identity Not on file Sexual Orientation Not on file Occupation Industry Job Start Date Job End Date RETIRED Not on file Not on file Not on file Last Filed Vital Signs Vital Sign Reading Time Taken Comments Blood Pressure 131/83 01/09/2024 3:55 PM CDT Pulse 96 01/09/2024 3:55 PM CDT Temperature 36.8 C (98.3 F) 01/09/2024 3:55 PM CDT Respiratory Rate 18 01/09/2024 3:55 PM CDT Oxygen Saturation 83% 01/09/2024 3:55 PM CDT Inhaled Oxygen Concentration - - Weight 96.2 kg (212 lb) 01/09/2024 3:55 PM CDT Height 160 cm (5' 3) 01/09/2024 3:55 PM CDT Body Mass Index 37.55 01/09/2024 3:55 PM CDT Plan of Treatment Health Maintenance Due Date Last Done Comments BONE DENSITY TESTING 1941 DTAP/TDAP/TD VACCINES (1 - Tdap) 02/16/1960 PNEUMOCOCCAL VACCINE 50+ (1 of 2 - PCV) 02/16/1960 ZOSTER VACCINE (1 of 2) 1991 Respiratory Syncytial Virus (RSV) Vaccine Pt: or over 60 yrs (1 - 1-dose 75+ series) 02/16/2016 COVID-19 VACCINE ( - 2023-2 5 season) 2024 DEPRESSION SCREENING 10/02/2024 MEDICARE AWV CALENDAR YEAR 2024 INFLUENZA VACCINE (#1) 2025 HEPATITIS B VACCINE Aged Out No longe r eligible based on patient's age to complete this topic HIB VACCINE Aged Out No longer eligi ble based on patient's age to complete this topic HPV VACCINE Aged Out No longer eligi ble based on patient's age to complete this topic MENINGOCOCCAL (Group B) VACC INE SHARED DECISION-MAKING Aged Out No longer eligibl e based on patient's age to complete this topic MENINGOCOCCAL GROUPS A/C/Y/W VACCINE Aged Out No longer eligible b ased on patient's age to complete this topic Insurance MEDICARE HUMANA MEDICARE ADV D-SNP & C-SNP MEDICARE MEDICAID - OUT OF STATE Care Teams Environmental Specialist Relationship Specialty Start Date End Date Jaelyn Ozuna MD [address] [place] [address] PCP - General Family Medicine 12/11/23
--- OUTSIDE RECORDS SUMMARY | 2025-04-16 12:19 | XMS_ITS ---
Author Name Auto Generated, Auto Generated Organization [facility] Address [address] [place] [address] Phone [phone] Care Team Providers Care Production Support Developer Name Role Phone Jd Whittington Unavailable [phone] Functional Status No Results Mental Status No Results Allergies and Intolerances Name Onset Date Reaction Severity Sulfa (Sulfonamide Antibiotics) (Allergy) Fri Se p 08 21:02:00 EDT 2017 Darvon (Allergy) Mon Sep 21:02:00 EDT 2017 Compazine (Allergy) Mon Sep 21:02:00 EDT 2017 cat dander (Allergy) Mon Sep 21:02:00 EDT 201 7 Medications Medication Directions Start Date End Date Tylenol 325 mg tablet 650 mg TABLET Oral PRN Every 4 Hours pain e Sep 09:00:00 EDT 2016u Sep 01:00:00 EDT 2016 ibuprofen 200 mg tablet 600 mg TABLET Or al Every 8 Hours for 7 Days back pain e Sep 16:00:00 EDT 2016u Sep 01:00:00 EDT 2016 ibuprofen 200 mg tablet 600 mg TABLET Or al PRN Every 8 Hours pain e Sep 16:00:00 EDT 2016u Sep 01:00:00 EDT 2017 traZODone 50 mg tablet 50mg TABLET Oral PRN 1 Time Daily Dx: depression / insomnia - at bedtime Mon Sep 17 14:30:00 EDT 2016u Sep 21 01:00:00 EDT 2016 melatonin 5 mg tablet 5 mg TABLET Oral P RN 1 Time Daily give 5 mg at bedtime PRN for insomnia Mon Sep 12 17:20:00 EDT 2016 [place] Sep 21 01:00:00 EDT 2016 nicotine 21 mg/24 hr daily transdermal patch 21 mg PATCH, TRANSDERMAL 24 HOURS Transdermal 1 Time Daily for 42 Days smoking cessation e Sep 12 17:30:00 EDT 2016 [place] Sep 21 01:00:00 EDT 2016 nicotine 14 mg/24 hr daily transdermal patch 14 mg PATCH, TRANSDERMAL 24 HOURS Transdermal 1 Time Daily for 14 Days smoking cessation MonJul 25 09:00:00 EDT 2016 [place] Sep 21 01:00:00 EDT 2016 nicotine 7 mg/24 hr daily transdermal patch 7 mg PATCH, TRANSDERMAL 24 HOURS Transdermal 1 Time Daily for 14 Days smoking cessation MonAug 08 09:00:00 EST 2016 [place] Sep 21 01:00:00 EDT 2017 topiramate 50 mg tablet 1.5 tabs TABLET Oral 2 Times Daily for 7 Days [facility] Sep 16 09:00:00 EDT 2016 [place] Sep 21 01:00:00 EDT 2016 Topamax 100 mg tablet 1 tab TABLET Oral 2 Times Daily for 7 Days Sun Sep 24 09:00:00 EDT 2016 [place] Sep 21 01:00:00 EDT 2016 Topamax 100 mg tablet 1.5 tab TABLET Ora l 2 Times Daily for 7 Days MonJul 03 09:00:00 EDT 2016 [place] Sep 21 01:00:00 EDT 2017 Topamax 200 mg tablet 1 tab TABLET Oral 2 Times Daily for 7 Days MonJul 10 09:00:00 EDT 2016 [place] Sep 21 01:00:00 EDT 2017 allopurinol 100 mg tablet 100 mg TABLET Oral 1 Time Daily gout Mon Sep 21:00:00 EDT 2016 [place] Sep 21 01:00:00 EDT 2017 cloNIDine HCl 0.1 mg tablet 0.1 mg TABLE T Oral 3 Times Daily HTN Mon Sep 21:00:00 EDT 2016 [place] Sep 14 14:59:00 EDT 2017 furosemide 40 mg tablet 40 mg TABLET Ora l 1 Time Daily water pill Mon Sep 21:00:00 EDT 2016 [place] Sep 21 01:00:00 EDT 2016 busPIRone 7.5 mg tablet 7.5 mg TABLET Or al 2 Times Daily anxiety Mon Sep 08 21:00:00 EDT 2016 [place] Sep 21 01:00:00 EDT 2017 spironolactone 25 mg tablet 25 mg TABLET Oral 1 Time Daily water pill MonJun 09:30:00 EDT 2016u Sep 22 10:00:00 EDT 2016 amLODIPine 10 mg tablet 10 mg TABLET Ora l 1 Time Daily HTN MonJun 09:30:00 EDT 2016 [facility] Sep 22 10:00:00 EDT 2016 lisinopril 40 mg tablet 40 mg TABLET Ora l 1 Time Daily HTN MonJun 09:30:00 EDT 2016 [facility] Sep 22 10:00:00 EDT 2017 lamoTRIgine 150 mg tablet 150 mg TABLET Oral 2 Times Daily seizures MonJun 09:30:00 EDT 2016 [facility] Sep 01:00:00 EDT 2017 carvedilol 25 mg tablet 2 tabs TABLET Or al 2 Times Daily HTN MonJun 09:30: EDT 2016 [facility] Sep 22 10:00:00 EDT 2017 atorvastatin 10 mg tablet 10 mg TABLET O ral 1 Time Daily cholesterol MonJun 09:30:00 EDT 2016 [facility] Sep 01:00:00 EDT 2017 traZODone 50 mg tablet 50mg TABLET Oral PRN 1 Time Daily at bedtime for insomnia MonJun 09 21:30:00 EDT 2016 [place] Sep 17 14:41:00 EDT 2017 Senna Laxative-Stool Softener 8.6 mg-50 mg tablet 1 tab TABLET Oral PRN 2 Times Daily constipation MonJun 09:30:00 EDT 2016 [facility] Sep 01:00:00 EDT 2017 polyethylene glycol 3350 17 gram/dose oral powder 17 grams POWDER (GRAM) Oral PRN 1 Time Daily constipation MonJun 09:30:00 EDT 2016 [facility] Sep 01:00:00 EDT 2017 TUBErsol 5 tub. unit/0.1 mL intradermal injection solution 0.1 ml VIAL (ML) Intradermal 1 Time Weekly for 2 Weeks (PPD) 1st injection upon admission. Read between 48 and 72 hours and give 2nd injection 1 week after the 1st if result is negative. If positive result, proceed with chest x-ray to rule out active disease. MonJun 10 13:00:00 EDT 2016 [facility] Sep 01:00:00 EDT 2016 TUBErsol 5 tub. unit/0.1 mL intradermal injection solution Read Results VIAL (ML) Other 1 Time Weekly for 2 Weeks Read results between 48-72 hours after 1st and 2nd 1 week apart. If positive do chest x-ray to rule out active disease. Mon Jun 11 13:00:00 EDT 2016 [place] Jun 21 01:00:00 EDT 2016 topiramate 50 mg tablet 1 TABLET Oral 2 Times Daily for 7 Days Sat Jun 10 01:00:00 EDT 2016 Sat Jun 16 00:59:00 EDT 2016 Problems Active Concerns * Dissection of unspecified site of aorta* Code: * Start Date: MonJun 09:00:00 EDT 2016 * End Date: * Text: * Essential (primary) hypertension* Code: * Start Date: MonJun 09:00:00 EDT 2016 * End Date: * Text: * Constipation, unspecified* Code: * Start Date: MonJun 09:00:00 EDT 2016 * End Date: * Text: * Ileus, unspecified* Code: * Start Date: MonJun 09:00:00 EDT 2016 * End Date: * Text: * Hyperlipidemia, unspecified* Code: * Start Date: MonJun 09:00:00 EDT 2016 * End Date: * Text: * Epilepsy, unspecified, not intractable, without status epilepticus* Code: * Start Date: MonJun 09:00:00 EDT 2016 * End Date: * Text: * Anxiety disorder, unspecified* Code: * Start Date: MonJun 09:00:00 EDT 2016 * End Date: * Text: * Irritable bowel syndrome, unspecified* Code: * Start Date: MonJun 09:00:00 EDT 2016 * End Date: * Text: * Personal history of transient ischemic attack (TIA), and cerebral infarction without residual deficits* Code: * Start Date: MonJun 09:00:00 EDT 2016 * End Date: * Text: * Personal history of other diseases of the circulatory system* Code: * Start Date: MonJun 09:00:00 EDT 2016 * End Date: * Text: * Gout, unspecified* Code: * Start Date: MonJun 09:00:00 EDT 2016 * End Date: * Text: * Other specified disorders of muscle* Code: * Start Date: MonJun 09:00:00 EDT 2016 * End Date: * Text: Reason for Referral Past Medical History
--- OUTSIDE RECORDS SUMMARY | 2025-04-16 12:19 | XMS_ITS | Continuity of Care Document ---
Author Organization [facility] Address [address] [facility] [address] [place] [address] Phone Care Team Providers Care Yeast Cake Cutter Name Role Phone Dino Maya Unavailable Unavailable Procedures Procedure Date Eye Exam, New Patient Refraction Advance Directives Directive Yes / No Effective Date File Name No Information Encounters Encounter Description Practice Location Reason(s) For Visit Diagnoses Date Provider Providers Copied on Encounter [facility], [address], [place], [place], [id number], [place] tel:[phone] [facility] No Information [phone] Dino. [address], [place], [address], [place]. tel:[phone] Family History Family Member Type Diagnosis Age At Onset No Information Payers Payer name Insurance type Covered republican ID Authoriza tion(s) No Information Social History Type Description Quantity Date Captured Comments Sex Female Smoking Status No Information Chief Complaint And Reason For Visit No Information Reason For Referral Reason For Referral No Information History Of Present Illness Encounter Date Complaint History Of Prese nt Illness No Information Functional Status Date Functional Assessmen t No Information Instructions Date Instruction Additional Infor mation No Information Assessments Type Assessment Date No Information Patient Care Teams Name Effective Dates (start - stop) Status Members No Information
--- OUTSIDE RECORDS SUMMARY | 2025-04-16 12:19 | XMS_ITS | Encounter Summary ---
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 Hazard Abatement Worker Name Role Phone Jaelyn Ozuna MD Primary Care Provider + Reason for Visit * Reason Onset Date Comments Care Management Follow-up 05/09/2024 Encounter Details Date Type Department Care Team (Late st Contact Info) Description 05/09/2024 Telephone [facility] - Centralized Scheduling [address] [place] [address] Onel Patiño MD [address] [place] [address] Care Management Follow-up Social History Tobacco Use Types Packs/Day Years Used Date Smoking Tobacco: Every Day Cigarettes Last attempted to quit: 01/20/2014 Smokeless Tobacco: Never Alcohol Use Standard Drinks/Week Comments No 0 (1 standard drink = 0.6 oz pur e alcohol) Comments Unknown Sex and Gender Information Value Date Recorded Sex Assigned at Not on file Legal Sex Female 5:49 AM DEAL[employer] C[employer] RO[employer] Gender Identity Not on file Sexual Orientation Not on file Occupation Industry Job Start Date Job End Date RETIRED Not on file Not on file Not on file documented as of this encounter Functional Status * Is person deaf or have serious hearing difficulty? Answer Date of Assessment Author No 02/14/2014 8:30 AM CDT Misty Tinsley RN * Is person blind or have serious difficulty seeing? Answer Date of Assessment Author No 02/14/2014 8:30 AM CDT Misty Tinsley RN * Does person have serious difficulty walking/climbing stairs? Answer Date of Assessment Author No 02/14/2014 8:30 AM CDMisty Casas RN * Does person have difficulty dressing/bathing? Answer Date of Assessment Author No 02/14/2014 8:30 AM CDT Misty Tinsley RN * Does person have difficulty doing errands alone? Answer Date of Assessment Author No 02/14/2014 8:30 AM VERONICAT Misty Tinsley RN documented as of this encounter Mental Status * Does person have difficulty concentrating/remembering/making decisions? Answer Entry Date Author No 02/14/2014 8:30 AM Misty Pugh RN documented in this encounter Miscellaneous Notes * Telephone Encounter - Malena Truong - 05/09/2024 3:39 PM CDT Patient's son is wanting the order for: [id number] - CT CHEST WO CONTRAST sent to [facility] to be scheduled as it is closer to the patient's home. [facility] Address: [address] [place] [address] Radiology documented in this encounter Plan of Treatment Not on file documented as of this encounter Visit Diagnoses Not on filedocumented in this encounter Care Teams Asbestos Hazard Abatement Worker Relationship Specialty Start Date End Date Jaelyn Ozuna MD [address] [place] [address] PCP - General Family Medicine 12/11/23 documented as of this encounter
--- NOTE | 2025-04-16 13:15 | ED_ITS ---
HPI - Fall General Chief Complaint: Fall Stated Complaint: GLF Time Seen by Provider: 04/16/25 12:01 Source: patient Mode of arrival: EMS Limitations: no limitations History of Present Illness HPI Narrative: Patient is an 85-year-old female, with past medical history of CVA, vascular dementia, who presents the ED via EMS with report of a fall. Patient is a resident of [facility]. Patient reports she was getting into the shower when she slipped and fell. This fall was witnessed. She did not hit her head or lose consciousness. Denies dizziness, lightheadedness, syncope. She sustained contusion to right anterior ankle/lower leg. Sent here for further evaluation. Patient denies any other areas of pain. Related Data Home Medications ?Medication ?Instructions ?Recorded ?Confirmed ?Last Taken ?Type paroxetine HCl 20 mg tablet 20 mg PO DAILY 05/20/22 03/07/25 05/19/22 History Allergies Allergy/AdvReac Type Severity Reaction Status Date / Time prochlorperazine Allergy Intermediate shortness Verified 04/16/25 11:40 of breath propoxyphene Allergy Intermediate Fainting Verified 04/16/25 11:40 Sulfa (Sulfonamide Allergy Intermediate shortness Verified 04/16/25 11:40 Antibiotics) of breath Review of Systems Review of Systems: All systems reviewed & are unremarkable except as noted in HPI. 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 Essential hypertension Vascular dementia without behavioral disturbance Postmenopausal atrophic vaginitis Thoracic aortic aneurysm (TAA) Restless legs syndrome Tobacco dependence due to cigarettes Vitamin D deficiency Gout Major depressive disorder, recurrent, moderate History of aortic dissection Mixed hyperlipidemia Surgical History Surgical History History of craniotomy History of permanent cardiac pacemaker placement History of emergency section History of cholecystectomy History of cerebral aneurysm repair (1994) History of total hysterectomy with bilateral salpingo-oophorectomy (BSO) Family History Family History Father Hypertension Family history of cardiovascular disease Mother Heart disease Sibling Drug abuse Alcohol abuse Son Schizophrenia Social History Social History Social History: Surrogate decision maker: Abhi Villanueva, son. Code status: Full code. Smoking packs per day: 1 Smoking cigarettes per day: 20.0 Years smoked: 70 Smoking pack-years: 70.00 Smoking status: Former smoker Tobacco type: cigarettes Second hand tobacco smoke exposure: Yes Additional smoking assessment comments: Quit in July 2022. Alcohol intake: never Drinks per week: 1 Substance use: never Substance use type: does not use Lack of Transportation: No Lack of Food: Never True Current Housing: I Have Housing Concerned About Future Housing: No Difficulty Paying Gas/Electric Bills: No Difficulty Paying for Meds: No Currently Unemployed: No Education: Don't Know Difficulty w/ Childcare or Family Care: No Living arrangements: assisted living Additional living arrangements comments: [facility]. She has 2 sons, 1 suffers from schizophrenia. 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 Spiritual care concerns: No Exam Narrative: GENERAL: Elderly, obese with BMI of 34.4, non-toxic, in no acute distress. HEAD: Normocephalic, atraumatic. RESPIRATORY: Airway patent, respirations nonlabored. CARDIOVASCULAR: Regular rate and rhythm. Pedal pulses are intact and easily palpable. MUSCULOSKELETAL: Moves all extremities. No gross deformities. Contusion/hematoma to right anterior lower leg/anterior ankle. Slight bruising noted. Focal tenderness to palpation. No significant tenderness along medial or lateral malleoli or along metatarsals. Sensation intact throughout extremity. SKIN: Warm, dry, normal color. NEURO: A&O X3. Speech clear. No ataxic movements. PSYCHIATRIC: Appropriate mood and affect. Normal interaction. Course Vital Signs Vital signs: Vital Signs Temperature 98.0 F 04/16/25 11:21 Pulse Rate 82 04/16/25 11:21 Respiratory Rate 16 04/16/25 11:21 Blood Pressure 119/84 04/16/25 11:21 Pulse Oximetry 94 04/16/25 11:21 Oxygen Delivery Room Air 04/16/25 11:21 Temperature 98.0 F 04/16/25 11:21 Pulse Rate 83 04/16/25 13:27 Respiratory Rate 16 04/16/25 13:27 Blood Pressure 123/80 04/16/25 13:27 Pulse Oximetry 93 04/16/25 13:27 Oxygen Delivery Room Air 04/16/25 11:21 MDM - Fall MDM Narrative Medical decision making narrative: Patient?s injury is consistent with musculoskeletal etiology. No signs of neurologic or vascular compromise on physical examination. Compartments are soft without signs of compartment syndrome. XR of R ankle negative for fx. Pain is consistent with contusion/hematoma. Patient is felt to be stable for discharge back to [facility] facility and further outpatient management and treatment. Given Tadeo bandage. Given Tylenol in the ED. Discussed rice therapy. Discussed return precautions. Patient discharged in stable condition. Patient denies any other injuries. The fall was witnessed today by [facility] staff. There was no head injury or LOC. Medical Records Attestation: I reviewed the patient's medical records. Imaging Data Attestation: I personally reviewed and interpreted this imaging study as follows : Radiologist's impression: ITS Impressions Ankle X-Ray 04/16/25 11:54 IMPRESSION: No acute osseous abnormality of the right ankle. Discharge Plan Discharge Clinical Impression: Contusion of right lower leg Qualifiers: Encounter type: initial encounter Qualified Code(s): S80.11XA - Contusion of right lower leg, initial encounter Patient Disposition: [facility] Living Condition: Stable Instructions: Antibiotic Form, Foot Contusion (ED) Additional Instructions: Patient's imaging did not show any evidence of fracture. She will likely have some swelling/bruising to her right lower leg. Recommend Tadeo bandage for compression/support. Recommend Tylenol as needed for pain. Recommend frequent icing to ankle. Return for new or worsening concerns. Patient Language: Georgian Prescriptions: No Action memantine [Namenda] 10 mg tablet 10 mg PO BID Qty: 60 5RF paroxetine HCl 20 mg tablet 20 mg PO DAILY Patient Comments: day ; d/t missed dosage meclizine 25 mg tablet 25 mg PO TID PRN (Reason: dizziness or vertigo) Qty: 30 0RF carvedilol [Coreg] 25 mg Tablet 12.5 mg PO Q12HR Qty: 30 0RF aspirin [Children's Aspirin] 81 mg Tablet,Chewable 81 mg PO DAILY@0800 Qty: 30 0RF atorvastatin 20 mg Tablet 40 mg PO DAILY Qty: 30 0RF melatonin 5 mg Tablet 5 mg PO HS PRN (Reason: Insomnia) Qty: 30 0RF lamotrigine 150 mg tablet 150 mg PO BID Qty: 180 1RF Rx Instructions: take 100mg in the am, and 50mg PO at HS clonidine HCl 0.1 mg tablet 0.1 mg PO BID Qty: 180 1RF Rx Instructions: 1 tablet if systolic blood pressure more than 160, every 6 hours, maximum twice a day. amlodipine [Norvasc] 2.5 mg tablet 2.5 mg PO .COMPLEX Qty: 30 1RF Rx Instructions: 2.5 mg orally QAM amlodipine 5 mg tablet 5 mg PO .COMPLEX Qty: 30 1RF Rx Instructions: 5 mg orally qhs Incruse Ellipta 62.5 mcg/actuation blister with device See Rx Instructions .ROUTE .COMPLEX Qty: 30 3RF Dose Instruction: INHALE 1 PUFF BY MOUTH DAILY Rx Instructions: INHALE 1 PUFF BY MOUTH DAILY Follow-up/Referrals: Leonid Staton MD [Primary Care Provider] - Time of Disposition: 13:16
[2025-04-16 13:27] VITALS: BP 123/80; PULSE 83; RESP 16; O2SAT 93
[2025-04-16] MEDS: ACETAMINOPHEN 500 MG TABLET 1000 MG PO (13:41)
== END 2025-04-16 14:28 ==
PROVIDERS: Emergency Provider Physician Assistant; PCP Family Medicine
DX: S80.11XA Contusion of right lower leg, initial encounter (principal); G47.30 Sleep apnea, unspecified; Z86.73 Personal history of transient ischemic attack (TIA), and cerebral infarction without residual deficits; J44.9 Chronic obstructive pulmonary disease, unspecified; F32.A Depression, unspecified; Z87.442 Personal history of urinary calculi; I12.9 Hypertensive chronic kidney disease with stage 1 through stage 4 chronic kidney disease, or unspecified chronic kidney disease; N18.30 Chronic kidney disease, stage 3 unspecified; G25.81 Restless legs syndrome; E78.5 Hyperlipidemia, unspecified; W01.0XXA Fall on same level from slipping, tripping and stumbling without subsequent striking against object, initial encounter
CPT/HCPCS: 73610; 99283; A9270